=== PATIENT | male | born 1975 | race Caucasian/White ===

== ENCOUNTER 2020-09-21 07:21 | Emergency (ER) | payer OTHER, SELFPAY ==
--- NOTE | ~2020-09-21 | XR_ITS ---
EXAMINATION: XR chest 1V 09/21/2020 08:41 INDICATION: Syncope. Chest pain after fall. PROCEDURE: 2 view chest COMPARISON: 03/29/2018 FINDINGS: The lungs are clear. The cardiomediastinal silhouette is within normal limits. There are no pleural effusions. There is no pneumothorax suspected. IMPRESSION: 1: NO ACUTE CARDIOPULMONARY DISEASE. Reviewed, dictated and finalized at location A.
--- NOTE | ~2020-09-21 | XR_ITS ---
XR hip BI 2V w AP pelvis 09/21/2020 08:41 INDICATION: Pelvic and hip pain after fall PROCEDURE: AP pelvis and 2 views each hip COMPARISON: No prior studies for comparison. FINDINGS: Fracture, dislocation or subluxation is not identified. Pelvic rings are intact. Sacral for amen are symmetric. The soft tissues appear within normal limits. No foreign bodies are identified. IMPRESSION: 1: NO ACUTE BONE OR JOINT ABNORMALITY IDENTIFIED. Reviewed, dictated and finalized at location A.
[2020-09-21 07:31] VITALS: BP 174/91; PULSE 93; RESP 18; TEMP 36.6; O2SAT 97
--- NOTE | 2020-09-21 07:46 | ECG_ITS ---
Measurements Intervals [place] Rate: 86 P: 151 WI: 160 QRS: 16 QRSD: 108 T: 23 QT: 351 QTc: 420 Interpretive Statements SINUS RHYTHM CONSIDER INFERIOR INFARCT, AGE INDETERMINATE ABNORMAL ECG Electronically Signed On 09-21-2020 7:58:20 CDT by Geovanni Mullins D.O.
--- NOTE | 2020-09-21 08:00 | ED.GENADULT ---
HPI - General Adult General Chief complaint: Extremity Injury, Lower Stated complaint: legs not working well after COVID shot Time Seen by Provider: 09/21/20 07:23 Source: RN notes reviewed History of Present Illness HPI narrative: Patient presents emergency department from home for cramping of his bilateral hamstrings. Patient states that yesterday he had been walking in his yard when all of a sudden his right hamstring had cramped up this caused him to have severe pain in the right hamstring and fall he states he did have a brief syncopal episode with this and was out for approximately 25 seconds states that since that time he said cramping in the bilateral hamstrings. Patient states he is able to fully extend the legs he does hurt to fully extend as well as walk he denies any numbness or tingling or weakness of the legs he denies any fevers or chills chest pain shortness of breath abdominal pain nausea vomiting diarrhea or any other symptoms he states he did get his Covid vaccine yesterday. He denies any back pain and denies any bowel or bladder incontinence Related Data Home Medications Medication Instructions Recorded Confirmed aspirin 81 mg PO DAILY 09/21/20 09/21/20 Allergies Allergy/AdvReac Type Severity Reaction Status Date / Time No Known Allergies Allergy Unverified 09/21/20 07:34 Review of Systems Review of Systems: Narrative: Gen.: Denies fevers or chills Eyes: Denies eye pain or visual change ENT: Denies congestion Respiratory: Denies shortness of breath or cough CV: Denies chest pain or palpitations GI: Denies abdominal pain nausea, emesis or diarrhea denies bowel or bladder incontinence Musculoskeletal: See HPI Neuro: Denies numbness, tingling, weakness or focal weakness Skin: Denies rash Except as documented, all other systems reviewed and negative [facility] Past Medical History Medical History (Updated 09/21/20 @ 11:56 by Kelechi Prather DO) Patient denies significant medical history Social History Social History (Updated 09/21/20 @ 11:53 by Kelechi Prather DO) Smoking status: Never smoker Gender identity (if verbalized by the patient): Male Exam Narrative: Exam Narrative: APPEARANCE: No acute distress, nontoxic, resting in bed EYES: EOMI HEENT: Normocephalic, atraumatic, OMM RESPIRATORY: No respiratory distress Clear to auscultation bilaterally with no rhonchi wheezing or rales. CARDIOVASCULAR: Regular rate and rhythm without murmurs rubs or gallops. ABDOMINAL: Soft, nontender, nondistended, no rebound or guarding MUSCULOSKELETAl: Moves all extremities. No clubbing, cyanosis or edema. Tender to palpation over the bilateral hamstrings pain increased with full extension at the knee in the bilateral hamstrings muscle strength is 5 out of 5 in the bilateral lower extremities bilateral dorsalis pedis pulse 2+ bilateral lower extremities neurovascularly intact no overlying erythema or signs of infection no rashes NEURO: Awake and alert. Following commands, speech normal, no focal deficits SKIN:: Warm, dry. 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 Discussed need for follow-up with primary care, proper use of medication, and reasons to return to the emergency department. Patient understands and agrees to current treatment plan Vital Signs Vital signs: Vital Signs Temperature 97.8 F 09/21/20 07:31 Pulse Rate 93 09/21/20 07:31 Respiratory Rate 18 09/21/20 07:31 Blood Pressure 174/91 H 09/21/20 07:31 Pulse Oximetry 97 09/21/20 07:31 Temperature 97.8 F 09/21/20 07:31 Pulse Rate 87 09/21/20 09:27 Respiratory Rate 18 09/21/20 09:27 Blood Pressure 162/89 H 03
--- NOTE | 2020-09-21 08:05 | PC.NURSE ---
Pt states he can't give a urine sample at this time
[2020-09-21 08:06] LABS: Basophils Percent Auto 0.2 % (0.2-1.2); Eosinophils Absolute Auto 0.1 K/mm3 (0-0.3); Eosinophils Percent Auto 0.8 % (0-4.4); Hematocrit 44.5 % (42.0-52.0); Hemoglobin 15.5 g/dL (14.0-18.0); Immature Granulocyte Absolute 0.04 K/mm3 (0.00-0.031); Immature Granulocyte Percent A 0.4 % (0-0.5); Lymphocytes Absolute Auto 1.66 K/mm3 (0.9-3.2); Mean Corpuscular HGB Conc 34.8 g/dl (32-36); Mean Corpuscular Hemoglobin 31.8 pg (26-34); Mean Corpuscular Volume 91.4 fl (80-100); Mean Platelet Volume 10.3 fl (7.4-10.4); Monocytes Absolute Auto 0.9 K/mm3 (0.1-0.6); Monocytes Percent Auto 8.6 % (2.6-8.5); Neutrophils Absolute Auto 7.7 K/mm3 (1.3-6.7); Platelet Count Result 264 k/mm3 (150-375); Red Blood Count 4.87 M/mm3 (4.6-6.20); Red Cell Distribution Width 11.8 % (11.5-14.5); White Blood Count 10.4 K/mm3 (4.5-10.0)
[2020-09-21] MEDS: diazePAM INJ (*CRX) 10 MG/2 ML SYRINGE 5 MG IV PUSH (08:13)
[2020-09-21] MEDS: SODIUM CHLORIDE 0.9% IV 1,000 ML 999 ML IV CONT (08:13)
[2020-09-21 08:15] LABS: INR 0.8
[2020-09-21 08:16] LABS: Partial Thromboplastin Time 28.4 SECONDS (22.3-36.8)
[2020-09-21 08:19] LABS: Alanine Aminotransferase 39 U/L (4-50); Alkaline Phosphatase 70 U/L (38-126); Anion Gap 4 mmol/L (8-16); Aspartate Amino Transferase 33 U/L (17-59); Bilirubin,Total 0.5 mg/dL (0.2-1.3); Blood Urea Nitrogen 12 mg/dL (9-20); Carbon Dioxide 29 mmol/L (22-30); Chloride 108 mmol/L (98-107); Creatine Kinase 503 U/L (55-170); Estimated CRCL calculation 142 ml/min; Estimated Glomerular Filt Rate > 60; Glucose 114 mg/dL (75-110); Magnesium 1.8 mg/dL (1.6-2.3); Potassium 4.3 mmol/L (3.4-5.0); Sodium 141 mmol/L (137-145)
[2020-09-21 08:31] LABS: Troponin I < 0.012 ng/mL (0.000-0.034)
--- NOTE | 2020-09-21 08:49 | PC.NURSE ---
pt attempting to give urine sample at this time
[2020-09-21 09:27] VITALS: BP 162/89; PULSE 87; RESP 18; O2SAT 97
[2020-09-21] MEDS: KETOROLAC 30 MG/ML VIAL (*BKC) IV PUSH (09:32)
[2020-09-21 10:23] LABS: Add Urine Microscopic? YES; Appearance Urine Cloudy (Clear); Bilirubin Urine Negative (Negative); Blood Urine Negative (Negative); Color Urine Yellow (Yellow); Glucose Urine UA Negative (Negative); Ketones Urine Negative (Negative); Leukocyte Esterase Ur Negative LEU/UL (Negative); Mucus Urine Moderate /lpf; Nitrate Urine Negative (Negative); Protein Urine Negative (Negative); RBC Urine 0-2 /hpf (0-2); Specific Grav Ur 1.019 (1.001-1.035); Squamous Epithelial Cell Urine Rare /hpf (Few); Urobilinogen Urine Negative mg/dL (<2.0); WBC Urine 0-3 /hpf
[2020-09-21 12:18] VITALS: BP 168/85; PULSE 85; RESP 18; O2SAT 98
== END 2020-09-21 12:19 | disposition home or self-care (01) ==
PROVIDERS: Emergency Provider Emergency Medicine
DX: S76.911A Strain of unspecified muscles, fascia and tendons at thigh level, right thigh, initial encounter (principal); R55 Syncope and collapse; R25.2 Cramp and spasm; X58.XXXA Exposure to other specified factors, initial encounter
CPT/HCPCS: 36415; 71045; 73521; 80053; 81001; 82550; 83735; 84484; 85025; 85610; 85730; 93005; 96361; 96374; 96375; 99284; J1885; J3360; J7030

== ENCOUNTER 2021-02-01 08:19 | Outpatient (CLI) | payer OTHER, SELFPAY ==
--- NOTE | ~2021-02-01 | US_ITS ---
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 COMPARISON: None available FINDINGS: Bowel gas obscures visualization of the pancreas. The visualized portions of the pancreas a re unremarkable. The liver is normal with normal echogenicity and echotexture. No surface nodularity. Normal hepatopetal flow in the main portal vein. The gallbladder is normal with no abnormal wall thi ckening, pericholecystic fluid or stones. The normal common bile duct measures 4 mm. There was no son ographic Gutiérrez sign. IMPRESSION: 1. Unremarkable right upper quadrant ultrasound. Reviewed, dictated and finalized at location A.
== END 2021-02-01 08:20 | disposition home or self-care (01) ==
DX: K75.81 Nonalcoholic steatohepatitis (NASH) (principal)
CPT/HCPCS: 76705

== ENCOUNTER 2025-01-31 15:27 | Emergency (ER) | payer OTHER, SELFPAY ==
--- NOTE | ~2025-01-31 | XR_ITS ---
EXAM: XR hand LT min 3V DATE: 01/31/2025 15:58 HISTORY: LACERATION INJURY TO LT THUMB . COMPARISON: None available. FINDINGS: Normal mineralization. Old ulnar styloid fracture. No acute fracture or dislocation. No ly tic or blastic lesion. Mild scattered degenerative changes. No erosion or periosteal change. Soft tis sues within normal limits. IMPRESSION: No acute osseous finding in the left hand. Reviewed, dictated and finalized at location K.
--- OUTSIDE RECORDS SUMMARY | 2025-01-31 15:29 | XMS_ITS | Encounter Summary ---
Author Organization [facility] Address [address] [place] [address] Care Team Providers Care Signing Agent Name Role Phone Miguel A Coleman MD Primary Care Provider Amadeo Cole MD Unavailable [phone] Encounter Details Date Type Department Care Team (Late st Contact Info) Description 06/28/2017 Abstract [facility] Conversion Md, Generic Conversion, Social History Tobacco Use Types Packs/Day Years Used Date Smoking Tobacco: Never Assessed Sex and Gender Information Value Date Recorded Sex Assigned at Not on file Legal Sex Male 7:27 PM CDT Gender Identity Not on file Sexual Orientation Not on file documented as of this encounter Plan of Treatment Not on file documented as of this encounter Visit Diagnoses Not on filedocumented in this encounter Care Teams Signing Agent Relationship Specialty Start Date End Date Miguel A Coleman MD [address] [place] [address] [place] [address] PCP - General FAMILY PRACTICE 05/31/17 11/26/18 Amadeo Cole MD [facility]. [address] [address] [place] Source Water Protection Specialist CARDIOVASCULAR DISEASE 07/02/17 documented as of this encounter
--- OUTSIDE RECORDS SUMMARY | 2025-01-31 15:29 | XMS_ITS | Continuity of Care Document ---
Author Organization [facility] Address [address] [facility] [address] [place] [id number] Insurance Providers Payer Plan Claims Address Claims Phone Policy Number Group Number Relation Employer Guarantor Name Guarantor Guarantor Address Guarantor Phone LORENZO DONALDSON I.A.M. MUKESH NATIO NAL I.A.M . BENE tel:[phone] [id number] LORENZO DONALDSON I.A.M. MUKESH NATFLORA NAL I.A.M . MUKESH tel:[phone] [id number] [employer]IG[employer] CIGNA [address], [facility] [address] tel:[phone] Problems Unknown Problems Results Test Result Date/Time Value / Unit Interp. Refere nce Range Lipid Panel[[id number]] Collected: 01/02/2025 03:31 PM Specimen Received: 01/02/2025 05:00 AM Source: [facility] Cholesterol, Total [[id number]] 01/03/2025 11:28 AM 101 mg/dL 100-199 mg/d L Triglycerides [[id number]] 01/03/2025 11:28 AM 51 mg/dL 0-149 mg/dL HDL Cholesterol [[id number]] 01/03/2025 11:28 AM 37 mg/dL L >39 mg/dL VLDL Cholesterol Te [[id number]] 01/03/2025 11:28 AM 12 mg/dL 5-40 mg/dL LDL Chol Calc ([facility]) [[id number]] 01/03/2025 11:28 AM 52 mg/dL 0-99 mg/dL Hemoglobin A1c[[id number]] Collected: 01/02/2025 03:31 PM Specimen Received: 01/02/2025 05:00 AM Source: [facility] Hemoglobin A1c [[id number]] 01/03/2025 11:27 AM 5.2 % 4.8-5.6 % . Prediabetes: 5.7 - 6.4 Tri betes: >6.4 Glycemic control for adults with diabetes: 7.0 Comp. Metabolic Panel (14)[3 ] Collected: 07/24/2024 05:15 PM Specimen Received: 07/24/2024 05:00 AM Source: [facility] Glucose [[id number]] 07/25/2024 06:31 AM 113 mg/dL H 70-99 mg/dL BUN [[id number]] 07/25/2024 06:31 AM 11 mg/dL 6-2 4 mg/dL Creatinine [[id number]] 07/25/2024 06:33 AM 0.83 mg/dL 0.76-1.27 mg/dL eGFR [[id number]] 07/25/2024 06:33 AM 109 mL/min/1.73 >59 mL/min/1.73 BUN/Creatinine Ratio [690521] 07/25/2024 06:33 AM 13 9-20 Sodium [[id number]] 07/25/2024 06:25 AM 140 mmol/L 134-144 mmol/L Potassium [[id number]] 07/25/2024 06:26 AM 4.2 mmol/L 3.5-5.2 mmol/L Chloride [659303] 07/25/2024 06:24 AM 106 mmol/L 96-106 mmol/L Carbon Dioxide, Total [953309] 07/25/2024 06:29 AM 23 mmol/L 20-29 mmol/L Calcium [[id number]] 07/25/2024 06:30 AM 9.1 mg/dL 8.7-10.2 mg/dL Protein, Total [176804] 07/25/2024 06:34 AM 6.6 g/dL 6.0-8.5 g/dL Albumin [[id number]] 07/25/2024 06:33 AM 4.1 g/dL 4.1-5.1 g/dL Globulin, Total [539873] 07/25/2024 06:34 AM 2.5 g/dL 1.5-4.5 g/dL Bilirubin, Total [[id number]] 07/25/2024 06:33 AM 0.6 mg/dL 0.0-1.2 mg/dL Alkaline Phosphatase [430637] 07/25/2024 06:33 AM 85 IU/L 44-121 IU/L AST (SGOT) [[id number]] 07/25/2024 06:44 AM 25 IU/L 0-40 IU/L ALT (SGPT) [550482] 07/25/2024 06:33 AM 48 IU/L H 0-44 IU/L Lipid Panel[[id number]] Collected: 07/24/2024 05:15 PM Specimen Received: 07/24/2024 05:00 AM Source: [facility] Cholesterol, Total [[id number]] 07/25/2024 06:57 AM 129 mg/dL 100-199 mg/d L Triglycerides [[id number]] 07/25/2024 06:46 AM 132 mg/dL 0-149 mg/dL HDL Cholesterol [[id number]] 07/25/2024 06:58 AM 27 mg/dL L >39 mg/dL VLDL Cholesterol Te [[id number]] 07/25/2024 06:58 AM 24 mg/dL 5-40 mg/dL LDL Chol Calc ([facility]) [[id number]] 07/25/2024 06:58 AM 78 mg/dL 0-99 mg/dL Hemoglobin A1c[[id number]] Collected: 07/24/2024 05:15 PM Specimen Received: 07/24/2024 05:00 AM Source: [facility] Hemoglobin A1c [[id number]] 07/25/2024 04:22 AM 5.9 % H 4.8-5.6 % . Prediabetes: 5.7 - 6.4 Tri betes: >6.4 Glycemic control for adults with diabetes: 7.0 Allergies, adverse reactions, alerts No known allergies and adverse reactions Medications No administered medications reported Vital Signs No vital signs reported Social History No smoking Hx information available
--- OUTSIDE RECORDS SUMMARY | 2025-01-31 15:29 | XMS_ITS | Clinical Summary ---
Author Organization [facility] Address [facility] [place] [address] Care Team Providers Care Ammonia Box Operator Name Role Phone Amadeo Cole MD Unavailable [phone] Allergies No known active allergies Medications omeprazole 20 MG capsule Take 1 capsule by mouth daily. 8 06/02/2017 Active aspirin EC 81 MG EC tablet Take 1 tablet (81 mg total) by mouth daily. 08/07/2017 Active Active Problems Problem Noted Date Diagnosed Date Essential hypertension Atrial fibrillation ([facility]/HCC HHS/HCC) Family History Medical History Relation Comments Heart Attack Maternal Grandmother Stent Cardiac Maternal Grandmother irregular hb Mother Aneurysm Paternal Grandfather atrial fib Paternal Grandfather Relation Status Comments Father Alive Maternal Grandfather Maternal Grandmother Mother Alive Paternal Grandfather Paternal Grandmother Sister 1 Alive Sister 2 Alive Sister 3 Alive Social History Tobacco Use Types Packs/Day Years Used Date Smoking Tobacco: Every Day Smokeless Tobacco: Former Chew Quit: 05/2017 Comments:3 cigarettes daily Alcohol Use Standard Drinks/Week Comments Yes 0 (1 standard drink = 0.6 oz pur e alcohol) scotch 2/week Sex and Gender Information Value Date Recorded Sex Assigned at Not on file Legal Sex Male 7:27 PM CDT Gender Identity Not on file Sexual Orientation Not on file Occupation Industry Job Start Date Job End Date Not on file Not on file Not on file Not on file Last Filed Vital Signs Vital Sign Reading Time Taken Comments Blood Pressure 142/102 04/23/2018 3:53 PM CDT Pulse 96 04/23/2018 3:53 PM CDT Temperature 36.7 C (98 F) 07/11/2017 11:37 AM CLINICAL IMMUNOLOGIST Respiratory Rate 16 07/11/2017 3:00 PM CLINICAL IMMUNOLOGIST Oxygen Saturation 97% 07/11/2017 3:00 PM CLINICAL IMMUNOLOGIST Inhaled Oxygen Concentration - - Weight 144.2 kg (318 lb) 04/23/2018 3:53 PM CDT Height 188 cm (6' 2) 04/23/2018 3:53 PM CDT Body Mass Index 40.83 04/23/2018 3:53 PM CDT Plan of Treatment Health Maintenance Due Date Last Done Comments Colorectal Cancer Screening Colonoscopy (10 Years) 1977 Annual Physical 01/17/1980 Hepatitis B Vaccines (1 of 3 - 19+ 3-dose series) 01/17/1996 Pneumococcal Vaccine: Pediat rics (0 to 5 Years) and At-Risk Patients (6 to 49 Years) (1 of 2 - PCV) 01/17/1996 DTaP, Tdap and Td Vaccines ( 2 - Td or Tdap) 07/30/2022 07/30/2012 COVID-19 Vaccine (2023-2 5 season) 2024 Hepatitis C Completed 10/06/2016 Meningococcal B Vaccine Aged Out No l onger eligible based on patient's age to complete this topic Meningococcal Vaccine Aged Out No ben araseli eligible based on patient's age to complete this topic RSV Immunizations Under 20 Months Aged Out No longer eligible based on patient's age to complete this topic Procedures Procedure Name Priority Date/Time Associated Diagnosis Comments HEPATITIS C ANTIBODY Routine 10/06/2016 8:25 AM CDT from Last 3 Months or Most Recently Relevant to Health Maintenance Results * HEPATITIS C ANTIBODY (10/06/2016 8:25 AM CDT) HEPATITIS C AB NON-REACTIVE TESTING PERFORMED AT [facility] [address] [place] [address] NR [facility] TO EPIC CONVERSION 10/06/2016 8:25 AM CDT 10/06/2016 8:25 AM CDT Narrative [facility] TO EPIC CONVERSION - 10/08/2016 5:24 PM CDT Result Communication: No patient communication needed at this time Jonh Lu MD LABORATORY Final Result [facility] TO EPIC CONVERSION from Last 3 Months or Most Recently Relevant to Health Maintenance Insurance [employer] CIG[employer] Care Teams Ammonia Box Operator Relationship Specialty Start Date End Date Amadeo Cole MD [facility]. [address] [place] [address] [place] [employer] CARDIOVASCULAR DISEASE 07/02/17
--- OUTSIDE RECORDS SUMMARY | 2025-01-31 15:29 | XMS_ITS | Encounter Summary ---
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 This section includes the names of all active insurance providers for the patient. Insurance Provider Type of Coverage Plan Name Start of Policy Coverage End of Policy Coverage Group Number Member ID Insurance Provider's Telephone Number Policy Walker's Name Patient's Relationship to Policy Walker [employer]ICE NATIO NAL I.A.M . BENE Jul 01, 2022 [id number] SAMY ALEXANDER PATIENT [employer] BEH[employer]IORAL HE[employer] MENTAL HEALTH NATIO NAL I.A.M . BENE Jul 01, 2022 [id number] MOLLSAMY LAMBERT NJAL PATIENT Selected Encounter This section includes the information on record at [place] for the Encounter. Date/Time Encounter Type Encounter Description Reason Pro vider Source Oct 21, 2024 08:40 AM OFFICE O/P EST LOW 20 MIN GASTROENTEROLOGY ICD-10-CM K21.9 Gastro-esophagea l reflux disease without esophagitis RUFINO TAN Alysia Encounter Template Text not used by [place] Assessments - Encounter Diagnoses This section includes the primary and secondary diagnoses documented for the Encounter. Date/Time Primary/Secondary Diagnosis Diagnosis Name Provider Source November 02, 2024 07:00 AM PRIMARY Gastro-esophageal reflux disease without esophagitis SINGH TAN [facility] November 02, 2024 07:00 AM SECONDARY Chest pain, unspecified SINGH TAN [facility] November 02, 2024 07:00 AM SECONDARY Fatty (change of) liver, not elsewhere classified SINGH TAN [facility] November 02, 2024 07:00 AM SECONDARY Personal history of adenomatous and serrated colon polyps SINGH TAN [facility] Plan of Treatment: Future Appointments (+ 6 months) and Future Tests (+/- 45 days) The Plan of Treatment section includes future care activities for the patient [facility] This section includes future appointments and future orders which are active, pending or scheduled. Future Appointments This section includes appointments that were scheduled to occur 6 months from the date of the Encounter, up to a maximum of 20 appointments. The data comes from all [facility]. Appointment Date/Time Appointment Type Appointme nt Facility Name October 29, 2024 09:30 AM AMBULATORY - MEDICINE [facility] November 17, 2024 11:00 AM AMBULATORY - MEDICINE [facility] Dec 04, 2024 07:30 AM AMBULATORY - NONE [facility] Dec 31, 2024 02:00 PM AMBULATORY - NONE [facility] Apr 14, 2025 03:00 PM AMBULATORY - MEDICINE [facility] Active, Pending, and Scheduled Orders This section includes a listing of several types of active, pending, and scheduled orders, including clinic medications orders, diagnostic test orders, procedure orders and consult orders; where the start date of the order is 45 days before the date of the Encounter or 45 days after the date of theEncounter. The data comes from all [facility]. Test Date/Time Test Type Test Details Facility Name Oct 16, 2024 11:54 AM Consult Order [facility] Cons Blunger Machine Operator's Choice [facility] Dec 04, 2024 12:00 AM Imaging - Magnetic Resonance Imaging (MRI) Order MRI SHOULDER RIGHT RIGHT [facility] Lab Results: +/- 30 days of the encounter This section includes the Chemistry and Hematology Lab Results on record with [place] for the patient. Radiology Reports and Pathology Reports are provided separately, in subsequent sections. Lab Results This section contains the Chemistry/Hematology Results that were resulted 30 days before or 30 daysafter the date of the Encounter. Date/Time Source Result Type Result - Unit Interpretation Reference Range Specimen Type Comment Oct 21, 2024 09:19 AM [facility] HGA1C BLOOD Specimen Type: BLOOD No comment entered. Ordering Provider: CONOR GATES Report Released Date/Time: Oct 15, 2024 02:41 PM Reporting Lab: [facility] [address] [facility] [address] Performing Lab: [address] [address] HGA1C 5.1 4.0-6.0 Oct 21, 2024 09:19 AM [facility] HIV COMBO FOURTH GENERATION (STL) SERUM Speci men Type: SERUM No comment entered. Ordering Provider: CONOR GATES Report Released Date/Time: Oct 15, 2024 04:23 PM Reporting Lab: [facility] [address] [facility] [address] Performing Lab: [facility] [address] [facility] [address] HIV COMBO FOURTH GENERATION (STL) Nonreactive Nonreactive Oct 21, 2024 09:19 AM [facility] HEP C Ab HCV Ab (STL) SERUM Specime n Type: SERUM No comment entered. Ordering Provider: CONOR GATES Report Released Date/Time: Oct 15, 2024 04:23 PM Reporting Lab: [facility] [address] [facility] [address] Performing Lab: [facility] [address] [facility] [address] HEP C Ab HCV Ab (STL) Nonreactive Nonrea ctive Oct 21, 2024 09:18 AM [facility] HEPATIC FUNTION PANEL (STL) PLASMA Specimen Ty pe: PLASMA No comment entered. Ordering Provider: SINGH TAN Report Released Date/Time: Oct 21, 2024 08:53 AM Reporting Lab: [facility] [address] [facility] [address] Performing Lab: [facility] [address] [facility] [address] PROTEIN 7.3 g/dL 6-8.6 ALBUMIN 4.3 g/dL 3.4-5 TOTAL BILIRUBIN 1.2 mg/dL 0.2-1.2 ALKALINE PHOSPHATASE 98 U/L 40-150 AST/SGOT 34 U/L 5-34 ALT/SGPT 36 U/L 8-40 CONJ. BILIRUBIN 0.5 mg/dL 0-0.5 Vital Signs: All taken on the encounter date This section contains inpatient and outpatient Vital Signs collected on the date of the Encounter. Date/Time Temperature Pulse Blood Pressure Respiratory Rate SP02 Pain Height Weight Body Mass Index Source Oct 21, 2024 08:25 AM 96.8 73 111/69 18 96 8 285.5 37 [facility] Radiology Reports: +/- 30 days of the encounter Radiology Reports For cases when an order for radiology services may have been completed prior to the date of the Encounter, the report list includes the Radiology Reports that were completed up to 30 days before dateof the Encounter. For cases when an order for radiology services may have been completed after the date of the Encounter, the report list also includes the Radiology Reports that were completed up to30 days after date of the Encounter. The data comes from all [place] treatment facilities. Date/Time Radiology Report Provider Source Oct 21, 2024 09:03 AM SHOULDER,RIGHT,2 O R MORE VIEWS: DONOVAN ALEXANDER [id number] -1975 M Exm Date: OCT 21, 2024@09:03 Req Phys: CONOR GATES Loc: [facility] 7 PCP (Req'g Loc) Img Loc: [facility] SUITE Service: [address] [address] (Case [id number] COMPLETE) SHOULDER,RIGHT,2 OR MORE VIEWS (RAD Detailed) CPT:18923 Proc Modifiers : RIGHT Reason for Study: acute right shoulder pain Clinical History: Report Status: Verified Date Reported: OCT 21, 2024 Date Verified: OCT 21, 2024 Metal Weather Stripper E-Sig:/ES/DARIUS SANCHEZ Report: EXAMINATION: SHOULDER,RIGHT,2 OR MORE VIEWS DATE: 10/21/2024 9:03 AM HISTORY: acute right shoulder pain . COMPARISON: None. VIEWS:3 FINDINGS:Fracture, subluxation or dislocation. Moderate acromioclavicular osteoarthritis. Minor downsloping of the acromion. No focal destructive process. Impression: Predisposition to rotator cuff injury and moderate acromioclavicular osteoarthritis but no fracture, subluxation, dislocation, focal destructive process or other specific source of symptoms. Primary Interpreting Staff: DARIUS SANCHEZ, RADIOLOGIST (Metal Weather Stripper) /DARIUS LYNN [facility] Oct 21, 2024 09:03 AM ELBOW,RIGHT,3+VIEW S: DONOVAN ALEXANDER [id number] -1975 M Exm Date: OCT 21, 2024@09:03 Req Phys: CONOR GATES Loc: -[facility] PACT 7 PCP (Req'g Loc) Img Loc: -[facility] RADIOLOGY SUITE Service: [address] [address] (Case [id number] COMPLETE) ELBOW,RIGHT,3+VIEWS (RAD Detailed) CPT:02145 Proc Modifiers : RIGHT Reason for Study: chronic elbow pain Clinical History: Report Status: Verified Date Reported: OCT 22, 2024 Date Verified: OCT 22, 2024 Metal Weather Stripper E-Sig:/ES/AUDIE JENNINGS Report: Case [id number]. ELBOW,RIGHT,3+VIEWS. Comparison: None Findings: There is no evidence of fracture or dislocation. No bone destruction is present. 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 Small elbow joint effusion is noted. Impression: No acute fracture or dislocation. Osteoarthritic changes with small elbow joint effusion. Primary Interpreting Staff: AUDIE JENNINGS MD (Metal Weather Stripper) /AUDIE SOLANO [facility] Oct 21, 2024 09:03 AM ELBOW,LEFT, 3+VIEW S: DONOVAN ALEXANDER [id number] -1975 M Exm Date: OCT 21, 2024@09:03 Req Phys: CONOR GATES [facility] ([facility]g Loc[facility] Loc: [facility] SUITE Service: Unknown [address] [address] (Case [id number] COMPLETE) ELBOW,LEFT, 3+VIEWS (RAD Detailed) CPT:20650 Proc Modifiers : LEFT Reason for Study: chronic elbow pain Clinical History: Report Status: Verified Date Reported: OCT 22, 2024 Date Verified: OCT 22, 2024 Metal Weather Stripper E-Sig:/ES/AUDIE JENNINGS Report: Case [id number]. ELBOW,LEFT, 3+VIEWS. Comparison: None Findings: There is no evidence of fracture or dislocation. No bone destruction is present. Osteoarthritic changes are noted with osteophyte formation between the capitellum and the trochlea. Small elbow joint effusion is noted. Impression: Mild osteoarthritic changes with small joint effusion. Primary Interpreting Staff: AUDIE JENNINGS MD (Metal Weather Stripper) /AUDIE SOLANO [facility] Oct 21, 2024 09:02 AM CHEST X-RAY, 2 VIE WS: BENJAMINDONOVAN BARBERI [id number] -1975 M Exm Date: OCT 21, 2024@09:02 Req Phys: SINGH TAN Loc: -[place] (Req'g Loc) [facility] Loc: [facility] RAD[facility] SUITE Service: Unknown [address] [address] (Case [id number] COMPLETE) CHEST X-RAY, 2 VIEWS (RAD Detailed) CPT:01286 Proc Modifiers : Insp / Exp Reason for Study: chest pain Clinical History: xiphoialgia Report Status: Verified Date Reported: OCT 21, 2024 Date Verified: OCT 21, 2024 Metal Weather Stripper E-Sig:/ES/DARIUS SANCHEZ Report: EXAMINATION: CHEST X-RAY, 2 VIEWS DATE: 10/21/2024 9:02 AM HISTORY: chest pain. COMPARISON: None. VIEWS: PA and lateral FINDINGS: Heart size is normal. Lungs are clear. No pleural effusion. Impression: No active disease. Primary Interpreting Staff: DARIUS SANCHEZ, RADIOLOGIST (Metal Weather Stripper) /DARIUS LYNN [facility] Encounter Notes: All associated encounter notes This section contains the clinical notes associated to the Encounter. Date/Time Encounter Note(s) Provider Source Oct 21, 2024 08:31 AM GASTROENTEROLOGY OUTPATIENT NOTE: LOCAL TITLE: GASTROENTEROLOGY OUTPATIENT FOLLOW UP [facility] STANDARD TITLE: GASTROENTEROLOGY OUTPATIENT NOTE DATE OF NOTE: OCT 21, 2024@08:31 ENTRY DATE: OCT 21, 2024@08:31:44 AUTHOR: SINGH TAN COSIGNER: URGENCY: STATUS: COMPLETED S: Mr. Limon is a 49 y/o male that presents for follow up regartding GERD, NAFLD and diarrhea. Workup summary per this provider: EGD 08/12/23 with Grade B esophagitis, gastritis (negative for metaplasia, dysplasia, or malignancy), erythematous duodenapathy, and no esophageal varices. EGD 04/28/19 showed evidence of LA grade B reflux,normal stomach, non-bleeding small <5mm esophageal varices, normal duodenum. Colon 2023: Impression: - One 3 mm polyp in the sigmoid colon, removed with a jumbo cold forceps. Resected and retrieved. - Diverticulosis in the sigmoid colon. - External and internal hemorrhoids. CPRS labs reveal mild continued hepatocellular dysfunction. US 10/08/16: fatty liver, patent vessels, no focal lesions. FIbroscan 08/24/19 CAP 321, LSM 3.8 kPa. US 02/01/21: normal-appearing liver, no ascites 04/22/2024 Fibrosis-4 Score 0.72 at prior office visit with GI he reported longstanding (decades) diarrhea described as three semiformed stools daily, at times explosive, no nocturnal stools. reports occassional rectal bleeding and defecatory anal pain (hemorrhoids noted on prior colonoscopy as below). he is compliant with 1 tbsp of metamucil daily which reduces urgency. per recent PCP visit: # Chronic diarrhea/hematochezia: - Resolved with modifying diet. ----- since ADELINE patient has engaged with a diet program through his private insurer focused on a ketogenic diet and has lost 65 lbs and reported no rectal bleeding for the past two months. his bowels are regular and he denies nocturnal stools. GERD sx are well controlled with pantoprazole daily. his only concern today is chest discomfort following a Primordialu match three weeks ago with acute onset of chest wall pain and palpable change noted along his right sternal border and ribs. he continues physical activity involving his upper torso. O: General: WDWN MALE (BMI:36.7) in no acute distress, AAO x 3 Vitals: 96.8 F [36.0 C] (10/21/2024 08:25) 73 (10/21/2024 08:25) 18 (10/21/2024 08:25) 111/69 (10/21/2024 08:25) 96% (10/21/2024 08:25) 285.5 lb [129.50 kg] (10/21/2024 08:25) HEENT: Moist MM, tongue appears normal Neck: Appears normal, no palpable masses CVS: RRR on auscultation, No pedal edema Respiratory: Breathing appears normal, Chest is clear to auscultate Abd: Soft, BS+, No abdominal tenderness, No hepatosplenomegaly Musculoskeletal: No clubbing, No cyanosis, normal range of motion. reports devation of right rib which is mobile but not exquisitely tender. Skin: w/o rash, bruise, petechiae or angioma DATA REVIEW: The medication list was reviewed with the patient, discrepancies were resolved, and the patient was offered an updated list. Refills ordered as needed. Labs: Catherine Class [ ]: HGB/MCV: HGB 15.9 g/dL 07/14/2024 09:20 / 92.8 fL (07/14/24 09:20) FE STUDIES: No IRON & TIBC EO data found / No FERRITIN EO data found CHEMISTRY: CREATININE 0.81 mg/dL 07/14/2024 09:20 / 15.2 mg/dL (07/14/24 09:20) / POTASSIUM 4.9 mEq/L 07/14/2024 09:20 / SODIUM 141 mEq/L 07/14/2024 09:20 COAG: No INR EO data found / ____ No HEP C Ab HCV Ab (STL);HEPATITIS C AB (PB);HEP C AB (MA);HCV AB PB(Effective 458951) data found No HEPATITIS C (10Y) EO data found IMAGING REVIEW: US- No Impressions found CT Abd- No Impressions found A&P: Mr. Limon is a 49 y/o male that presents for follow up regarding GERD, NAFLD and diarrhea. regarding GERD sx, he has h/o mild (grade B) esophagitis with no findings of bonilla's. since he has lost weight and has modified his diet, he can consider stopping his PPI and pulsing therapy as needed. dosing strategies were discussed. regarding NALFD, he agrees to repeat liver panel today as he has lost >10% of his total weight. regarding his mild chest wall pain, will obtain CXR to e/f displaced rib vs fracture, with appropriate follow up via PCP. his diarrhea has resolved along with his intermittent rectal bleeding. he is due for surveillance colonoscopy in 2028, will adjust clinical reminder. Follow Up Colonoscopy - L,N,P,PH: Colonoscopy is due based on information available to this reminder. Prior/outside Colonoscopy results: Date: August 12, 2023 Colonoscopy reminder set 4 years from OCT 21, 2024. /stacy/ Singh Tan PA-C Physician Manager [facility] Signed: 10/21/2024 09:20 Receipt Acknowledged By: 10/21/2024 09:27 /stacy/ CONOR GATES, АНДРЕЙ, AGNP-C NURSE PRACTITIONER SINGH TAN [facility]
--- OUTSIDE RECORDS SUMMARY | 2025-01-31 15:29 | XMS_ITS | Encounter Summary ---
Author Name [facility] [place] [facility] [place] Address [address] [place] [address] Care Team Providers Care Planner Chief Name Role Phone CONOR GATES Primary Care [...] NAL I.A.M . BENE Jul 01, 2022 [id number] [phone] SAMY OLIVIER ANTAL PATIENT [facility] NATIO NAL I.A.M . BENE Jul 01, 2022 [id number] [phone] SAMY OLIVIER PATIENT Selected Encounter This section includes the information on record at [place] for the Encounter. Date/Time Encounter Type Encounter Description Reason Provider Source Jul 08, 2024 02:30 PM OFFICE O/P EST MOD 30 MIN PRIMARY CARE/MEDICINE ICD-10-CM I10 Essential (primary) hypertension AZUL GATES OR Mary Alice CONTI Encounter Template Text not used by [facility] Assessments - Encounter Diagnoses This section includes the primary and secondary diagnoses documented for the Encounter. Date/Time Primary/Secondary Diagnosis Diagnosis Name Provider Source Jul 16, 2024 09:23 AM PRIMARY Essential (primary) hypertension OLY SERNA [place] [facility] Jul 16, 2024 09:23 AM SECONDARY Alcoholic fatty liver OLY SERNA [place] [facility] Jul 16, 2024 09:23 AM SECONDARY Diarrhea, unspecified OLY SERNA [facility] Jul 16, 2024 09:23 AM SECONDARY Encounter for immunization OLY SERNA [place] [facility] Jul 16, 2024 09:23 AM SECONDARY Gastro-esophageal reflux disease without esophagitis OLY SERNA [place] [facility] Jul 16, 2024 09:23 AM SECONDARY Hyperlipidemia, unspecified OLY SERNA [place] [facility] Jul 16, 2024 09:23 AM SECONDARY Obstructive sleep apnea (adult) (pediatric) OLY SERNA [place] [facility] Jul 16, 2024 09:23 AM SECONDARY Other problems related to lifestyle OLY SERNA [facility] Jul 16, 2024 09:23 AM SECONDARY Pain in unspecified foot OLY SERNA [facility] Jul 16, 2024 09:23 AM SECONDARY Tobacco use OLY SERNA [facility] Plan of Treatment: Future Appointments (+ 6 months) and Future Tests (+/- 45 days) The Plan of Treatment section includes future care activities for the patient from all [place] treatmentfacilities. This section includes future appointments and future orders which are active, pending or scheduled. Future Appointments This section includes appointments that were scheduled to occur 6 months from the date of the Encounter, up to a maximum of 20 appointments. The data comes from all [place] treatment facilities. Appointment Date/Time Appointment Type Appointme nt Facility Name Jul 17, 2024 09:00 AM AMBULATORY - NONE [facility] Oct 21, 2024 08:40 AM AMBULATORY - MEDICINE [facility] Oct 21, 2024 02:00 PM AMBULATORY [facility] NONE [facility] Jan 04, 2025 03:00 PM AMBULATORY - MEDICINE [facility] Lab Results: +/- 30 days of the encounter This section includes the Chemistry and Hematology Lab Results on record with [place] for the patient. Radiology Reports and Pathology Reports are provided separately, in subsequent sections. Lab Results This section contains the Chemistry/Hematology Results that were resulted 30 days before or 30 daysafter the date of the Encounter. Date/Time Source Result Type Result - Unit Interpretation Reference Range Specimen Type Comment Jul 23, 2024 08:40 AM [facility] LIPID PANEL (STL) PLASMA Specimen Type: PLASMA No comment entered. Ordering Provider: CONOR GATES Report Released Date/Time: Jul 15, 2024 04:34 PM Reporting Lab: [facility] [address] [facility] [phone] Performing Lab: [address] [address] CHOLESTEROL 136 mg/dL 0-200 TRIGLYCERIDE 210 mg/dL H 0-150 CALCULATED LDL 68 mg/dL HDL(New) 26 mg/dL L >40 Jul 23, 2024 08:40 AM [facility] HEPATIC FUNTION PANEL (STL) PLASMA S pecimen Type: PLASMA No comment entered. Ordering Provider: CONOR GATES Report Released Date/Time: Jul 15, 2024 04:34 PM Reporting Lab: [facility] [address] [facility] [phone] Performing Lab: [facility] [address] [place] [phone] PROTEIN 7.2 g/dL 6-8.6 ALBUMIN 4.0 g/dL 3.4-5 TOTAL BILIRUBIN 0.5 mg/dL 0.2-1.2 ALKALINE PHOSPHATASE 80 U/L 40-150 AST/SGOT 35 U/L H 5-34 ALT/SGPT 58 U/L H 8-40 CONJ. BILIRUBIN 0.2 mg/dL 0-0.5 Jul 14, 2024 09:20 AM [facility] COMPREHENSIVE METABOLIC PANEL PLASMA Specimen Type: PLASMA Comment: LDL calculation invalid when Triglyceride exceeds 250 mg/dl Ordering Provider: CONOR GATES Report Released Date/Time: Jul 08, 2024 02:33 PM Reporting Lab: [facility] [address] [facility] [address] Performing Lab: [facility] [address] [place] [phone] CREATININE 0.81 mg/dL 0.7-1.3 UREA NITROGEN 15.2 mg/dL 9.0-25.0 GLUCOSE 120 mg/dL H 72-99 SODIUM 141 meq/L 136-145 POTASSIUM 4.9 meq/L 3.5-5 CHLORIDE 109 meq/L H 98-107 CARBON DIOXIDE 23 meq/L 22-31 CALCIUM 9.5 mg/dL 8.4-10.4 PROTEIN 7.6 g/dL 6-8.6 ALBUMIN 4.1 g/dL 3.4-5 TOTAL BILIRUBIN 0.4 mg/dL 0.2-1.2 ALKALINE PHOSPHATASE 90 U/L 40-150 AST/SGOT 35 U/L H 5-34 ALT/SGPT 62 U/L H 8-40 EGFR (CKD-EPI 2020) 109.4 >60 Jul 14, 2024 09:20 AM [facility] CBC BLOOD Specimen Type: BLOOD No comment entered. Ordering Provider: CONOR GATES Report Released Date/Time: Jul 08, 2024 02:33 PM Reporting Lab: [facility] [address] [facility] [address] Performing Lab: [facility] [address] [facility] [phone] WBC 9.5 10*3/uL 3.6-11.2 RBC 4.97 10*6/uL 4.10-5.70 HGB 15.9 g/dL 13.1-16.8 HCT 46.1 38.2-48.4 MCV 92.8 fL 80.0-100.0 MCH 32.0 pg 27.0-34.0 MCHC 34.5 g/dL 33.0-36.0 PLT 291 10*3/uL 150-400 MPV 11.1 fL 7.5-11.2 RDW 11.9 11.8-15.1 LYMPHOCYTES, AUTO % 23 MONOCYTES, AUTO % 9 NEUTROPHILS, AUTO % 66 EOSINOPHILS, AUTO % 1 BASOPHILS, AUTO % 0 LYMPHOCYTES, ABSOLUTE 2.18 10*3/uL 0.77- 4.50 MONOCYTES, ABSOLUTE 0.86 10*3/uL H 0.19-0. 80 NEUTROPHILS, ABSOLUTE 6.27 10*3/uL 2.10- 8.00 EOSINOPHILS, ABSOLUTE 0.13 10*3/uL 0.00- 0.60 BASOPHILS, ABSOLUTE 0.03 10*3/uL 0.00-0. 20 Jul 14, 2024 09:20 AM [facility] LIPID PANEL (STL) PLASMA Specimen Ty pe: PLASMA Comment: LDL calculation invalid when Triglyceride exceeds 250 mg/dl Ordering Provider: CONOR GATES Report Released Date/Time: Jul 08, 2024 02:33 PM Reporting Lab: [address] [address] Performing Lab: [address] [address] CHOLESTEROL 146 mg/dL 0-200 TRIGLYCERIDE 279 mg/dL H 0-150 DIRECT LDL 82 mg/dL L >100 CALCULATED LDL comment mg/dL HDL(New) 25 mg/dL L >40 Jul 14, 2024 09:20 AM [facility] HGA1C BLOOD Specimen Type: BLOOD No comment entered. Ordering Provider: CONOR GATES Report Released Date/Time: Jul 08, 2024 02:33 PM Reporting Lab: [facility] [address] [place] [phone] Performing Lab: [address] [address] HGA1C 5.9 4.0-6.0 Jul 14, 2024 09:20 AM [facility] TSH W/ REFLEX FT4 (STL) PLASMA Speci men Type: PLASMA No comment entered. Ordering Provider: CONOR GATES Report Released Date/Time: Jul 08, 2024 02:33 PM Reporting Lab: [facility] [address] [place] [phone] Performing Lab: [address] [address] TSH 1.218 u[IU]/mL 0.47-5 Vital Signs: All taken on the encounter date This section contains inpatient and outpatient Vital Signs collected on the date of the Encounter. Date/Time Temperature Pulse Blood Pressure Respiratory Rate SP02 Pain Height Weight Body Mass Index Source Jul 08, 2024 02:13 PM 97.9 87 129/82 20 94 5 348 45 [facility] Immunizations: All administered on the encounter date This section contains immunizations associated to the Encounter. Immunization Series Date Issued Administered By Site Reaction Lot Number CVX Code Drug Optometric Tech Comment(s) Source COVID-19 (PFIZER), MRNA, LNP-S, PF, PIPPA-SUCROSE, 30 MCG/0.3 ML (AGES 12+ YEARS) Jul 08, 2024 LISA SERNA RIGHT DELTO ID [id number] [employer] INC ADMINISTERE D AT [facility] INFLUENZA, SPLIT VIRUS, TRIVALENT, PF Jul 08, 2024 LISA SERNA R LEFT DELTO ID [id number] [employer]LA[employer] TechnologiesITHKLI NE ADMINISTERE D AT [facility] PNEUMOCOCCAL POLYSACCHARID E PPV23 Jul 08, 2024 LISA SERNA LEFT DELTO ID [id number] 33 [employer] ADMINISTERE D AT [facility] Social History: Smoking Status (Most current) and Tobacco Use (All prior to encounter date) This section includes the most current, and the historical, smoking and tobacco- related health factors from the [place] facility where the Encounter took place. Current Smoking Status This section includes the most current smoking, or tobacco-related health factor, from the [place] facility where the Encounter took place. Date/Time Current Smoking Status Comment Facil ity Oct 17, 2023 01:30 PM VA-TOBACCO NEVER USED [facility] Tobacco Use History This section includes a history of the smoking, or tobacco-related health factors, that were collected on or before the date of the Encounter. The data comes from the [place] facility where the Encounter took place. Date/Time Smoking Status/Tobacco Use Comment F acility Oct 18, 2022 01:00 PM VA-TOBACCO USE > 1 5 LESS THAN 30 YEARS [facility] Oct 18, 2022 01:00 PM VA-TOBACCO USE ADVICE [facility] Oct 18, 2022 01:00 PM VA-TOBACCO USE PARACHUTE OFFICER NO [facility] Oct 18, 2022 01:00 PM VA-TOBACCO USE MED NOTIFY PROVIDER CONOR NARVAEZ [facility] Oct 18, 2022 01:00 PM VA-TOBACCO USE WI 30 MIN OF WAKEUP [facility] Oct 18, 2022 01:00 PM VA-TOBACCO USER EVERY DAY [facility] Pathology Reports: +/- 30 days of the encounter Pathology Reports For cases when an order for pathology services may have been completed prior to the date of the Encounter, the report list includes the Pathology Reports that were completed up to 30 days before dateof the Encounter. For cases when an order for pathology services may have been completed after the date of the Encounter, the report list also includes the Pathology Reports that were completed up to30 days after date of the Encounter. The data comes from all [facility] facilities. Date/Time Pathology Report Provider Source Jul 14, 2024 09:20 AM LR MICROBIOLOGY RE PORT: Accession [UID]: [id number] [[id number]] Received: Jul 14, 2024@16:44 Collection sample: STOOL Collection date: Jul 14, 2024 09:20 Site/Specimen: FECES Provider: CONOR GATES Test(s) ordered: C&S STOOL..................... completed: Jul 17, 2024 13:49 * BACTERIOLOGY FINAL REPORT => Jul 18, 2024 07:30 [facility] CODE: [id number] Bacteriology Remark(s): 07/15/24 CMG CULTURE SHOWS HEAVY GROWTH OF USUAL ENTERIC PENNY. 07/17/24 RS NO Aeromonas, Campylobacter, E.coli 0157, Plesiomonas, Salmonella, Shigella, or Yersinia isolated. CULTURE GREW USUAL ENTERIC PENNY- NO ENTERIC PATHOGENS ISOLATED. CULTURE COMPLETE. =--=--=--=--=--=--=--=--=--=--=-- =--=--=--=--=--=--=--=--=--=--=-- =--=--=--=-- Performing Laboratory: Bacteriology Report [facility] CLIA# [id number] [address] [facility] [address] [place] [address] EVELIA SEBASTIAN [facility] Encounter Notes: All associated encounter notes This section contains the clinical notes associated to the Encounter. Date/Time Encounter Note(s) Provider Source Jul 24, 2024 07:57 AM PHYSICIAN LETTERS: LOCAL TITLE: TEST RESULT GENERAL LETTER STL STANDARD TITLE: PHYSICIAN LETTERS DATE OF NOTE: JUL 24, 2024@07:57 ENTRY DATE: JUL 24, 2024@07:57:50 AUTHOR: CONOR GATES EXP COSIGNER: URGENCY: STATUS: COMPLETED [facility] [address] [place] [address] JUL 24, 2024 MOHAN OLIVIER [address] [place], [place] [address] Dear Mohan Olivier, I would like to update you on your recent test results. LIPID PROFILE - High cholesterol and triglycerides (lipids) are risk factors for heart disease. Your cholesterol should fall between 140 and 200, and your triglycerides levels should be less than or equal to 150. HDL is the good cholesterol and should ideally be greater than 40. LDL is the bad cholesterol and optimal levels should be less than 100 (near optimal is between 100 and 129). TRIGLYCERIDE 210 H mg/dL 07/23/2024 08:40 CHOLESTEROL 136 mg/dL 07/23/2024 08:40 HDL(New) 26 L mg/dL 07/23/2024 08:40 DIRECT LDL 82 L mg/dL 07/14/2024 09:20 These results are abnormal. Triglyceride level slightly improved but remains above the normal limits. You can improve these values by changing your diet and exercise regimen. Please review the following recommendations: -Incorporate 30-minutes of exercise with walking 5 days per week. Increasing your physical activity can help with weight management and improve your cholesterol levels. -Carefully review nutrition labels. Decrease intake of saturated fats or trans-fats. Monitor your salt intake. -Reduce your intake of sugars such as cake or candy. Additional hidden sugars are found foods such as pastries, breads, and pasta. Monitor your intake of these items as well and try not to consume on a daily basis. -Increase your intake of fresh or frozen fruits and vegetables which is preferred over canned or processed items. Canned foods have high amounts of sugar and salt. -Low fat dairy products are encouraged. -Leaner meats such as chicken or fish can have less fat that beef or pork. LIVER FUNCTION PANEL - These are tests for liver function: PROTEIN 7.2 g/dL 07/23/2024 08:40 ALBUMIN 4.0 g/dL 07/23/2024 08:40 TOTAL BILIRUBIN 0.5 mg/dL 07/23/2024 08:40 ALKALINE PHOSPHATASE 80 U/L 07/23/2024 08:40 AST/SGOT 35 H U/L 07/23/2024 08:40 ALT/SGPT 58 H U/L 07/23/2024 08:40 The results are similar to previous values. Your liver function test is elevated. There are several factors that can contribute to this elevation. Tylenol use, alcohol intake, high fat diet, and some medications that are metabolized by your liver can increase this value. The recommendation is to avoid Tylenol and alcohol. We will continue monitoring these labs. Please continue follow up with your tax intern. PLAN Please continue your treatment as we discussed during your visit. If you have any questions please call your shoe parts caser. I look forward to seeing you at your next clinic appointment. Thank you for choosing the [facility] for your healthcare. FUTURE APPOINTMENTS: 10/21/2024 08:40 [facility]-GI WILBER 10/21/2024 14:00 [facility]-NOCO VVC PACT NUTR 01/04/2025 15:00 [facility] PACT 7 PCP Sincerely, CONOR GATES, MSN, AGNP-C NURSE PRACTITIONER MOHAN OLIVIER TAYLOR L [facility] Jul 17, 2024 03:31 PM PHYSICIAN LETTERS: LOCAL TITLE: TEST RESULT GENERAL LETTER STL STANDARD TITLE: PHYSICIAN LETTERS DATE OF NOTE: JUL 17, 2024@15:31 ENTRY DATE: JUL 17, 2024@15:31:52 AUTHOR: CONOR GATES EXP COSIGNER: URGENCY: STATUS: COMPLETED [facility] [address] [place] [address] JUL 17, 2024 MOHAN OLIVIER [address] [place], [place] [address] Dear Mohan Olivier, I would like to update you on your recent test results. OTHER TEST RESULTS Test(s) ordered: C&S STOOL..................... completed: Jul 17, 2024 13:49 NO Aeromonas, Campylobacter, E.coli 0157, Plesiomonas, Salmonella, Shigella, or Yersinia isolated. CULTURE GREW USUAL ENTERIC PENNY- NO ENTERIC PATHOGENS ISOLATED. CULTURE COMPLETE. Stool culture negative for infection. PLAN Please continue your treatment as we discussed during your visit. If you have any questions please call your shoe parts caser. I look forward to seeing you at your next clinic appointment. Thank you for choosing the [facility] for your healthcare. FUTURE APPOINTMENTS: 10/21/2024 08:40 [facility]O-GI SAYUK 10/21/2024 14:00 [facility] VVC PACT NUTR 01/04/2025 15:00 [facility] PACT 7 PCP Sincerely, CONOR GATES, MSN, AGNP-C NURSE PRACTITIONER MOHAN OLIVIER TAYLOR L [facility] Jul 15, 2024 04:33 PM PHYSICIAN LETTERS: LOCAL TITLE: TEST RESULT GENERAL LETTER STL STANDARD TITLE: PHYSICIAN LETTERS DATE OF NOTE: JUL 15, 2024@16:33 ENTRY DATE: JUL 14, 2024@18:47:56 AUTHOR: CONOR GATES EXP COSIGNER: URGENCY: STATUS: COMPLETED [facility] [address] [place] [address] JUL 14, 2024 MOHAN OLIVIER [address] [place], [place] [address] Dear Mohan Olivier, I would like to update you on your recent test results. LIPID PROFILE - High cholesterol and triglycerides (lipids) are risk factors for heart disease. Your cholesterol should fall between 140 and 200, and your triglycerides levels should be less than or equal to 150. HDL is the good cholesterol and should ideally be greater than 40. LDL is the bad cholesterol and optimal levels should be less than 100 (near optimal is between 100 and 129). TRIGLYCERIDE 279 H mg/dL 07/14/2024 09:20 CHOLESTEROL 146 mg/dL 07/14/2024 09:20 HDL(New) 25 L mg/dL 07/14/2024 09:20 DIRECT LDL 82 L mg/dL 07/14/2024 09:20 These results are abnormal. Your triglyceride level is elevated. This is likely because you were not fasting. We ask that you repeat this testing fasting. You can improve these values by changing your diet and exercise regimen. Please review the following recommendations: -Incorporate 30-minutes of exercise with walking 5 days per week. Increasing your physical activity can help with weight management and improve your cholesterol levels. -Carefully review nutrition labels. Decrease intake of saturated fats or trans-fats. Monitor your salt intake. -Reduce your intake of sugars such as cake or candy. Additional hidden sugars are found foods such as pastries, breads, and pasta. Monitor your intake of these items as well and try not to consume on a daily basis. -Increase your intake of fresh or frozen fruits and vegetables which is preferred over canned or processed items. Canned foods have high amounts of sugar and salt. -Low fat dairy products are encouraged. -Leaner meats such as chicken or fish can have less fat that beef or pork. -Smoking cessation is recommended as well. HEMOGLOBIN A1C - Gives us information about your diabetes (sugar or glucose) control over the past 3 months. Your target is to keep your A1C below 5.7%. HGA1C 5.9 % 07/14/2024 09:20 These results are abnormal. This level is in the prediabetic range. If the level becomes greater than 6.4 then it would warrant the diagnosis of diabetes mellitus type 2. You can improve this by making healthy diet choices and increasing your physical activity. Some recommendations are mentioned above. Additionally, there is a clinic baked and graphite inspector who you can self-schedule with for recommendations on healthy meal plan and diet modifications. CBC - A complete blood count (CBC) gives important information about the kinds and numbers of cells in the blood, especially red blood cells, white blood cells, and platelets. HGB 15.9 g/dL 07/14/2024 09:20 HEMATOCRIT 46.1 % (07/14/24 09:20) PLT 291 10*3/uL 07/14/2024 09:20 WHITE BLOOD COUNT 9.5 10*3/uL (07/14/24 09:20) These readings are within normal limits. CHEM 7 - This is important information about the current status of your kidneys, liver, and electrolyte and acid/base balance as well as of your blood sugar and blood proteins. SODIUM 141 mEq/L 07/14/2024 09:20 POTASSIUM 4.9 mEq/L 07/14/2024 09:20 CHLORIDE 109 H mEq/L 07/14/2024 09:20 UREA NITROGEN 15.2 mg/dL 07/14/2024 09:20 CREATININE 0.81 mg/dL 07/14/2024 09:20 CALCIUM 9.5 mg/dL 07/14/2024 09:20 CARBON DIOXIDE 23 mEq/L 07/14/2024 09:20 GLUCOSE 120 H mg/dL 07/14/2024 09:20 EGFR (CKD-EPI 2020) 109.4 07/14/2024 09:20 These readings are similar to your prior labs values and low clinical concern. LIVER FUNCTION PANEL - These are tests for liver function: PROTEIN 7.6 g/dL 07/14/2024 09:20 ALBUMIN 4.1 g/dL 07/14/2024 09:20 TOTAL BILIRUBIN 0.4 mg/dL 07/14/2024 09:20 ALKALINE PHOSPHATASE 90 U/L 07/14/2024 09:20 AST/SGOT 35 H U/L 07/14/2024 09:20 ALT/SGPT 62 H U/L 07/14/2024 09:20 These results are abnormal. Your liver function test is elevated. There are several factors that can contribute to this elevation. Tylenol use, alcohol intake, high fat diet and some medications that are metabolized by your liver can increase this value. The recommendation is to avoid Tylenol and alcohol. Please repeat this test with your labs next week. TSH - Thyroid-stimulating hormone (also known as TSH or thyrotropin) is a peptide hormone synthesized and secreted by thyrotrope cells in the anterior pituitary gland, which regulates the endocrine function of the thyroid gland. TSH TSH 1.218 uIU/mL 07/14/2024 09:20 These readings are within normal limits. PLAN I have reviewed your test results and we need to get additional testing done as follows: repeat labs in one week fasting. FUTURE APPOINTMENTS: 10/21/2024 08:40 LAZARO-GI WILBER 01/04/2025 15:00 LAZARO-CHRISTOPHER PACT 7 PCP Sincerely, CONOR GATES, MSN, ARAM NURSE PRACTITIONER MOHAN OLIVIER [facility] L [facility] Jul 09, 2024 02:01 PM ADDENDUM: LOCAL TITLE: Addendum STANDARD TITLE: ADDENDUM DATE OF NOTE: JUL 09, 2024@14:01:24 ENTRY DATE: JUL 09, 2024@14:01:24 AUTHOR: NANNETTE GALVAN EXP COSIGNER: URGENCY: STATUS: COMPLETED PT RETURNED TM7 PCP CALL /stacy/ NANNETTE GALVAN LOAN SPECIALIST Signed: 07/09/2024 14:02 Receipt Acknowledged By: 07/09/2024 15:00 /stacy/ CONOR GATES, MSN, ARAM NURSE PRACTITIONER --- Original Document --- 07/08/24 PRIMARY CARE PROVIDER ESTABLISHED VISIT STL: ESTABLISHED PATIENT [id number] REASON FOR VISIT/CHIEF COMPLAINT: follow up HPI: PMH, see problem list 49 y/o male who presents to the medical clinic for his scheduled follow up visit. The purpose of the visit today is to follow up on the veterans chronic medical conditions. Denies new concerns or complaints. Last PCP visit: 10/17/2023 HTN. Home readings: not monitoring. Denies c/o SOB, CP, CHAN, Blurred vision, peripheral edema. Reports complaints of persistent diarrhea multiple times a day. He was evaluated by the tax intern on last March. He was instructed to stop Metamucil and start Fibercon. He reports mild improvement in stool consistency but the frequency of diarrhea episodes has not changed. He modified his diet and is eating less fried/processed food. Reports complaints of bright red blood in stool at least once per week. Noted to have internal and external hemorrhoids on last colonoscopy. Follow-up due March 2026. WHAT IS YOUR GOAL FOR TODAY? F/U chronic medical conditions SOURCE(S) OF HISTORY: -Patient PAST MEDICAL HISTORY: 1) HTN - Hypertension ([facility] [id number]) 2) Tobacco User ([facility] [id number]) 3) Current drinker 4) Obstructive Sleep Apnea of Adult ([facility] [id number]) 5) Foot pain 6) Alcoholic fatty liver 7) GERD - Gastro-Esophageal Reflux Disease ([facility] [id number]) 8) Hyperlipidemia ([facility] [id number]) 9) Exposure to potentially hazardous substance SURGICAL HISTORY: - Bilateral foot surgery in the past, unknown type FAMILY MEDICAL HISTORY: DM: mother and father CAD/IHD: mother and father-HTN CA: none SOCIAL HISTORY: Nicotine: quit smoking 11/2023, smokes 1 cigar per day. Smoked 1 PPD x since 1996 Alcohol: consumes 1 drinks per week Illicit Drugs: none -Lives: with and kids Allergy: FIRE ANT VENOM Allergy list reviewed and remains current. MEDICATIONS: Active Outpatient Medications (including Supplies): Active Outpatient Medications Status 1) ATORVASTATIN CALCIUM 40MG TAB TAKE ONE-HALF TABLET BY MOUTH ACTIVE EVERY EVENING Indication: FOR HIGH CHOLESTEROL 2) CALCIUM POLYCARBOPHIL 625MG TAB TAKE TWO TABLETS BY MOUTH ACTIVE ONCE A DAY Indication: FOR FIBER SUPPLEMENTATION 3) IRBESARTAN 75MG TAB TAKE ONE TABLET BY MOUTH ONCE A DAY ACTIVE Indication: FOR HIGH BLOOD PRESSURE 4) NICOTINE 4MG GUM CHEW 1 PIECE OF GUM BY MOUTH EVERY 4 HOURS ACTIVE NEEDED CHEW GUM UNTIL TINGLING SENSATION, THEN PARK THE GUM BETWEEN CHEEK AND GUM AREA. REPEAT (RE-CHEW) WHEN TINGLING STOPS. Indication: FOR TOBACCO CESSATION 5) PANTOPRAZOLE NA 40MG EC TAB TAKE ONE TABLET BY MOUTH EVERY ACTIVE MORNING BEFORE A MEAL TAKE 30 MINUTES BEFORE MEAL(S) Indication: FOR GASTROESOPHAGEAL REFLUX DISEASE MEDICATION RECONCILIATION: completed REVIEW OF SYSTEMS: See HPI for further details of positive complaints. All 10 systems reviewed and otherwise negative. PHYSICAL EXAMINATION: VITALS (most recent, as listed in the electronic record): Temperature: 97.9 F [36.6 C] (07/08/2024 14:13) BP: 129/82 (07/08/2024 14:13) Pulse: 87 (07/08/2024 14:13) Resp: 20 (07/08/2024 14:13) PulsOx: 94% (07/08/2024 14:13) Pain: 5 (07/08/2024 14:13) Weight: Measurement DT WEIGHT LB(KG)[BMI] 07/08/2024 14:13 348(157.85)[45*] 04/22/2024 08:21 337.9(153.27)[43*] 10/23/2023 08:15 333.1(151.09)[43*] PHYSICAL EXAMINATION: General appearance: well-groomed, well-nourished, in no distress HEENT: sclera/conjunctiva clear, TMs pearly miles, nares patent no secretions or inflammation, oropharynx WNL Neck: supple, no lymphadenopathy or thyromegaly Cardiovascular: RRR, no murmur, no gallop Respiratory: CTA, no wheezes, crackles or rhonchi ABD/GI: normal contour, bs + in all quads, non-tender M/S: normal gait and posture Extremities: radial/PT pulses 2+, warm, well-perfused Psych: normal affect Neuro: Alert and oriented x 3 Skin: warm, dry, normal color and texture, skin intact DATA REVIEW: HGA1C 5.9 % 10/23/2023 09:11 HGA1C 5.6 % 10/19/2022 08:30 Lipid Panel: TRIGLYCERIDE 137 mg/dL 10/23/2023 09:11 CHOLESTEROL 127 mg/dL 10/23/2023 09:11 HDL(New) 25 L mg/dL 10/23/2023 09:11 DIRECT LDL 107 mg/dL 10/19/2022 08:30 CALCULATED LDL 75 mg/dL 10/23/2023 09:11 CMP: SODIUM 139 mEq/L 10/23/2023 09:11 POTASSIUM 4.3 mEq/L 10/23/2023 09:11 CHLORIDE 107 mEq/L 10/23/2023 09:11 UREA NITROGEN 11.7 mg/dL 10/23/2023 09:11 CREATININE 0.84 mg/dL 10/23/2023 09:11 CALCIUM 9.2 mg/dL 10/23/2023 09:11 PROTEIN 7.3 g/dL 10/23/2023 09:11 ALBUMIN 4.2 g/dL 10/23/2023 09:11 ALKALINE PHOSPHATASE 83 U/L 10/23/2023 09:11 ALT/SGPT 48 H U/L 10/23/2023 09:11 AST/SGOT 29 U/L 10/23/2023 09:11 TOTAL BILIRUBIN 0.8 mg/dL 10/23/2023 09:11 CARBON DIOXIDE 28 mEq/L 10/23/2023 09:11 GLUCOSE 111 H mg/dL 10/23/2023 09:11 EGFR (CKD-EPI 2020) 108.9 10/23/2023 09:11 CBC: WBC 8.9 10*3/uL 10/23/2023 09:11 RBC 5.03 10*6/uL 10/23/2023 09:11 HGB 15.9 g/dL 10/23/2023 09:11 HCT 45.8 % 10/23/2023 09:11 MCV 91.1 fL 10/23/2023 09:11 MCH 31.6 pg 10/23/2023 09:11 MCHC 34.7 g/dL 10/23/2023 09:11 RDW 11.9 % 10/23/2023 09:11 PLT 273 10*3/uL 10/23/2023 09:11 MPV 10.1 fL 10/23/2023 09:11 NEUTROPHILS, AUTO % 67 % 10/23/2023 09:11 LYMPHOCYTES, AUTO % 24 % 10/23/2023 09:11 MONOCYTES, AUTO % 7 % 10/23/2023 09:11 EOSINOPHILS, AUTO % 2 % 10/23/2023 09:11 BASOPHILS, AUTO % 0 % 10/23/2023 09:11 NEUTROPHILS, ABSOLUTE 5.93 10*3/uL 10/23/2023 09:11 LYMPHOCYTES, ABSOLUTE 2.08 10*3/uL 10/23/2023 09:11 MONOCYTES, ABSOLUTE 0.65 10*3/uL 10/23/2023 09:11 EOSINOPHILS, ABSOLUTE 0.15 10*3/uL 10/23/2023 09:11 BASOPHILS, ABSOLUTE 0.02 10*3/uL 10/23/2023 09:11 TSH: TSH 1.121 uIU/mL 10/23/2023 09:11 UA: URINE COLOR Light-Yellow 10/25/2022 11:51 APPEARANCE Clear 10/25/2022 11:51 U.PH 6.0 10/25/2022 11:51 U.BILIRUBIN Negative mg/dL 10/25/2022 11:51 U.NITRITE Negative mg/dL 10/25/2022 11:51 URINE RBC/HPF 1 /HPF 10/19/2022 08:30 URINE WBC/HPF 11 H /HPF 10/19/2022 08:30 SQUAMOUS EPITH. 2 /HPF 10/19/2022 08:30 MUCUS MANY /LPF 10/19/2022 08:30 Micral: CREATuF: 82.8 (10/23/23 09:11) M/CREAT: 8 (10/23/23 09:11) MICRAL: 6.5 (10/23/23 09:11) ASSESSMENT/PLAN: # HTN: - Blood pressure stable. Continue irbesartan 75mg - Trend renal function. Continue lifestyle modifications # HLD: - Controlled per last LDL value. Continue atorvastatin 20mg. Trend lipid panel # REINALDO: - Last sleep study 05/12/2023 very severe sleep apnea. Using CPAP device 7/7 nights per week - The patient has been advised that using CPAP regularly can decrease cardiac strain and help to control blood pressure. # Tobacco use: - Reports he stopped smoking cigarettes 6 months ago. Smokes 1 cigar/day. # Reports history of AFIB for 6 months >4 years ago: - Underwent cardioversion. Did not tolerate BB. No recent AFIB. His roll coating machine operator recommended ASA 81mg lifelong. # GERD: - Eval/management per GI clinic - EGD completed on 08/14/2023 demonstrated evidence of LA Grade B esophagitis. - Advised to continue pantoprazole as directed # NAFLD: - Eval/management per GI clinic - 02/01/21 US: normal-appearing liver, no ascites; Fibro scan last year did not show any evidence of advanced fibrosis. Trend LFT. Continue lifestyle modifications # Chronic pain in foot, bilateral: - Issued shoes insert and Shanae braces. Stable at this time # Obesity: - Discussed scheduling appt with [facility] or [address] [address]. phone numbers provided for scheduling. Discussed endo referral once he completes his pre-requisites are met. # Chronic diarrhea/hematochezia: - Will repeat CBC, CMP, TSH. Check stool culture. Will alert tax intern of the veterans complaints. He has upcoming appointment scheduled in September. May need a sooner office visit. HM: Colorectal cancer screening: Last completed: C-scope 08/14/2023, f/u 5 years Due: 03/2026 Prostate cancer screening: Last completed: defer due to age Lung cancer screening: Eligibility: defer due to age AAA Screening: Eligibility: defer due to age ADMINISTERED Immunization Series Date Facility Reaction Info COVID-19 (MODERNA), MRNA, LNP-S,* 3 10/08/2021 No Site COVID-19 (MODERNA), MRNA, LNP-S,* 2 10/21/2020 No Site COVID-19 (MODERNA), MRNA, LNP-S,* 1 09/20/2020 No Site COVID-19 (MODERNA), MRNA, LNP-S,* 1 04/17/2023 [facility]* INFLUENZA, SPLIT VIRUS, QUADRIVA* 04/17/2023 [facility]* INFLUENZA, UNSPECIFIED FORMULATI* [facility] TDAP B 10/17/2023 [facility]* REFUSED ======= Immunization Date Facility Info PNEUMOCOCCAL CONJUGATE, UNSPECIF* 10/17/2023 [facility]* <I> TDAP 10/17/2023 [facility]* <I> TDAP 10/18/2022 [facility]* <I> clinical reminders completed; educated on continuing to avoid salt, conc sweets; benefits of continued exercise, reg PCP visits, routine eyes exams Plan of care has been discussed with including expected therapeutic benefits and potential side effects of prescribed medications and treatments. Current medication list has been reconciled with and updated accordingly. Benton was instructed to keep all scheduled appointments and to contact senior sales operations manager for any additional problems. verbalizes understanding and is in agreement with the plan of care. RTC: 6m or sooner PRN PREVENTION & SCREENING: ALCOHOL: Clinical Reminder not due now or within a month BLOOD PRESSURE: Clinical Reminder not due now or within a month HEMOGLOBIN A1C: Clinical Reminder not due now or within a month Pneumococcal Conjugate Vaccine (PCV15/PCV20) - L,N,P,PH,U: See orders. /stacy/ CONOR GATES, MSN, NOBLEP-C NURSE PRACTITIONER Signed: 07/08/2024 14:59 07/09/2024 ADDENDUM STATUS: COMPLETED PC provider attempted to reach the by phone to discuss recommendations from GI. No answer. LVM for return call. /stacy/ CONOR GATES, MSN, NOBLEP-C NURSE PRACTITIONER Signed: 07/09/2024 11:23 [facility] Jul 08, 2024 02:26 PM PRIMARY CARE NOTE: LOCAL TITLE: PRIMARY CARE PROVIDER ESTABLISHED VISIT [facility] STANDARD TITLE: PRIMARY CARE NOTE DATE OF NOTE: JUL 08, 2024@14:26 ENTRY DATE: JUL 08, 2024@14:26:16 AUTHOR: CONOR GATES EXP COSIGNER: URGENCY: STATUS: COMPLETED PRIMARY CARE PROVIDER ESTABLISHED VISIT [facility] Has ADDENDA ESTABLISHED PATIENT [id number] REASON FOR VISIT/CHIEF COMPLAINT: follow up HPI: PMH, see problem list 49 y/o male who presents to the medical clinic for his scheduled follow up visit. The purpose of the visit today is to follow up on the veterans chronic medical conditions. Denies new concerns or complaints. Last PCP visit: 10/17/2023 HTN. Home readings: not monitoring. Denies c/o SOB, CP, CHAN, Blurred vision, peripheral edema. Reports complaints of persistent diarrhea multiple times a day. He was evaluated by the tax intern on last March. He was instructed to stop Metamucil and start Fibercon. He reports mild improvement in stool consistency but the frequency of diarrhea episodes has not changed. He modified his diet and is eating less fried/processed food. Reports complaints of bright red blood in stool at least once per week. Noted to have internal and external hemorrhoids on last colonoscopy. Follow-up due March 2026. WHAT IS YOUR GOAL FOR TODAY? F/U chronic medical conditions SOURCE(S) OF HISTORY: -Patient PAST MEDICAL HISTORY: 1) HTN - Hypertension ([facility] [id number]) 2) Tobacco User ([facility] [id number]) 3) Current drinker 4) Obstructive Sleep Apnea of Adult ([facility] [id number]) 5) Foot pain 6) Alcoholic fatty liver 7) GERD - Gastro-Esophageal Reflux Disease ([facility] [id number]) 8) Hyperlipidemia ([facility] [id number]) 9) Exposure to potentially hazardous substance SURGICAL HISTORY: - Bilateral foot surgery in the past, unknown type FAMILY MEDICAL HISTORY: DM: mother and father CAD/IHD: mother and father-HTN CA: none SOCIAL HISTORY: Nicotine: quit smoking 11/2023, smokes 1 cigar per day. Smoked 1 PPD x since 1996 Alcohol: consumes 1 drinks per week Illicit Drugs: none -Lives: with and kids Allergy: FIRE ANT VENOM Allergy list reviewed and remains current. MEDICATIONS: Active Outpatient Medications (including Supplies): Active Outpatient Medications Status 1) ATORVASTATIN CALCIUM 40MG TAB TAKE ONE-HALF TABLET BY MOUTH ACTIVE EVERY EVENING Indication: FOR HIGH CHOLESTEROL 2) CALCIUM POLYCARBOPHIL 625MG TAB TAKE TWO TABLETS BY MOUTH ACTIVE ONCE A DAY Indication: FOR FIBER SUPPLEMENTATION 3) IRBESARTAN 75MG TAB TAKE ONE TABLET BY MOUTH ONCE A DAY ACTIVE Indication: FOR HIGH BLOOD PRESSURE 4) NICOTINE 4MG GUM CHEW 1 PIECE OF GUM BY MOUTH EVERY 4 HOURS ACTIVE NEEDED CHEW GUM UNTIL TINGLING SENSATION, THEN PARK THE GUM BETWEEN CHEEK AND GUM AREA. REPEAT (RE-CHEW) WHEN TINGLING STOPS. Indication: FOR TOBACCO CESSATION 5) PANTOPRAZOLE NA 40MG EC TAB TAKE ONE TABLET BY MOUTH EVERY ACTIVE MORNING BEFORE A MEAL TAKE 30 MINUTES BEFORE MEAL(S) Indication: FOR GASTROESOPHAGEAL REFLUX DISEASE MEDICATION RECONCILIATION: completed REVIEW OF SYSTEMS: See HPI for further details of positive complaints. All 10 systems reviewed and otherwise negative. PHYSICAL EXAMINATION: VITALS (most recent, as listed in the electronic record): Temperature: 97.9 F [36.6 C] (07/08/2024 14:13) BP: 129/82 (07/08/2024 14:13) Pulse: 87 (07/08/2024 14:13) Resp: 20 (07/08/2024 14:13) PulsOx: 94% (07/08/2024 14:13) Pain: 5 (07/08/2024 14:13) Weight: Measurement DT WEIGHT LB(KG)[BMI] 07/08/2024 14:13 348(157.85)[45*] 04/22/2024 08:21 337.9(153.27)[43*] 10/23/2023 08:15 333.1(151.09)[43*] PHYSICAL EXAMINATION: General appearance: well-groomed, well-nourished, in no distress HEENT: sclera/conjunctiva clear, TMs pearly miles, nares patent no secretions or inflammation, oropharynx WNL Neck: supple, no lymphadenopathy or thyromegaly Cardiovascular: RRR, no murmur, no gallop Respiratory: CTA, no wheezes, crackles or rhonchi ABD/GI: normal contour, bs + in all quads, non-tender M/S: normal gait and posture Extremities: radial/PT pulses 2+, warm, well-perfused Psych: normal affect Neuro: Alert and oriented x 3 Skin: warm, dry, normal color and texture, skin intact DATA REVIEW: HGA1C 5.9 % 10/23/2023 09:11 HGA1C 5.6 % 10/19/2022 08:30 Lipid Panel: TRIGLYCERIDE 137 mg/dL 10/23/2023 09:11 CHOLESTEROL 127 mg/dL 10/23/2023 09:11 HDL(New) 25 L mg/dL 10/23/2023 09:11 DIRECT LDL 107 mg/dL 10/19/2022 08:30 CALCULATED LDL 75 mg/dL 10/23/2023 09:11 CMP: SODIUM 139 mEq/L 10/23/2023 09:11 POTASSIUM 4.3 mEq/L 10/23/2023 09:11 CHLORIDE 107 mEq/L 10/23/2023 09:11 UREA NITROGEN 11.7 mg/dL 10/23/2023 09:11 CREATININE 0.84 mg/dL 10/23/2023 09:11 CALCIUM 9.2 mg/dL 10/23/2023 09:11 PROTEIN 7.3 g/dL 10/23/2023 09:11 ALBUMIN 4.2 g/dL 10/23/2023 09:11 ALKALINE PHOSPHATASE 83 U/L 10/23/2023 09:11 ALT/SGPT 48 H U/L 10/23/2023 09:11 AST/SGOT 29 U/L 10/23/2023 09:11 TOTAL BILIRUBIN 0.8 mg/dL 10/23/2023 09:11 CARBON DIOXIDE 28 mEq/L 10/23/2023 09:11 GLUCOSE 111 H mg/dL 10/23/2023 09:11 EGFR (CKD-EPI 2020) 108.9 10/23/2023 09:11 CBC: WBC 8.9 10*3/uL 10/23/2023 09:11 RBC 5.03 10*6/uL 10/23/2023 09:11 HGB 15.9 g/dL 10/23/2023 09:11 HCT 45.8 % 10/23/2023 09:11 MCV 91.1 fL 10/23/2023 09:11 MCH 31.6 pg 10/23/2023 09:11 MCHC 34.7 g/dL 10/23/2023 09:11 RDW 11.9 % 10/23/2023 09:11 PLT 273 10*3/uL 10/23/2023 09:11 MPV 10.1 fL 10/23/2023 09:11 NEUTROPHILS, AUTO % 67 % 10/23/2023 09:11 LYMPHOCYTES, AUTO % 24 % 10/23/2023 09:11 MONOCYTES, AUTO % 7 % 10/23/2023 09:11 EOSINOPHILS, AUTO % 2 % 10/23/2023 09:11 BASOPHILS, AUTO % 0 % 10/23/2023 09:11 NEUTROPHILS, ABSOLUTE 5.93 10*3/uL 10/23/2023 09:11 LYMPHOCYTES, ABSOLUTE 2.08 10*3/uL 10/23/2023 09:11 MONOCYTES, ABSOLUTE 0.65 10*3/uL 10/23/2023 09:11 EOSINOPHILS, ABSOLUTE 0.15 10*3/uL 10/23/2023 09:11 BASOPHILS, ABSOLUTE 0.02 10*3/uL 10/23/2023 09:11 TSH: TSH 1.121 uIU/mL 10/23/2023 09:11 UA: URINE COLOR Light-Yellow 10/25/2022 11:51 APPEARANCE Clear 10/25/2022 11:51 U.PH 6.0 10/25/2022 11:51 U.BILIRUBIN Negative mg/dL 10/25/2022 11:51 U.NITRITE Negative mg/dL 10/25/2022 11:51 URINE RBC/HPF 1 /HPF 10/19/2022 08:30 URINE WBC/HPF 11 H /HPF 10/19/2022 08:30 SQUAMOUS EPITH. 2 /HPF 10/19/2022 08:30 MUCUS MANY /LPF 10/19/2022 08:30 Micral: CREATuF: 82.8 (10/23/23 09:11) M/CREAT: 8 (10/23/23 09:11) MICRAL: 6.5 (10/23/23 09:11) ASSESSMENT/PLAN: # HTN: - Blood pressure stable. Continue irbesartan 75mg - Trend renal function. Continue lifestyle modifications # HLD: - Controlled per last LDL value. Continue atorvastatin 20mg. Trend lipid panel # REINALDO: - Last sleep study 05/12/2023 very severe sleep apnea. Using CPAP device 7/7 nights per week - The patient has been advised that using CPAP regularly can decrease cardiac strain and help to control blood pressure. # Tobacco use: - Reports he stopped smoking cigarettes 6 months ago. Smokes 1 cigar/day. # Reports history of AFIB for 6 months >4 years ago: - Underwent cardioversion. Did not tolerate BB. No recent AFIB. His roll coating machine operator recommended ASA 81mg lifelong. # GERD: - Eval/management per GI clinic - EGD completed on 08/14/2023 demonstrated evidence of LA Grade B esophagitis. - Advised to continue pantoprazole as directed # NAFLD: - Eval/management per GI clinic - 02/01/21 US: normal-appearing liver, no ascites; Fibro scan last year did not show any evidence of advanced fibrosis. Trend LFT. Continue lifestyle modifications # Chronic pain in foot, bilateral: - Issued shoes insert and Shanae braces. Stable at this time # Obesity: - Discussed scheduling appt with [facility] or [facility] [address]. phone numbers provided for scheduling. Discussed endo referral once he completes his pre-requisites are met. # Chronic diarrhea/hematochezia: - Will repeat CBC, CMP, TSH. Check stool culture. Will alert tax intern of the veterans complaints. He has upcoming appointment scheduled in September. May need a sooner office visit. HM: Colorectal cancer screening: Last completed: C-scope 08/14/2023, f/u 5 years Due: 03/2026 Prostate cancer screening: Last completed: defer due to age Lung cancer screening: Eligibility: defer due to age AAA Screening: Eligibility: defer due to age ADMINISTERED Immunization Series Date Facility Reaction Info COVID-19 (MODERNA), MRNA, LNP-S,* 3 10/08/2021 No Site COVID-19 (MODERNA), MRNA, LNP-S,* 2 10/21/2020 No Site COVID-19 (MODERNA), MRNA, LNP-S,* 1 09/20/2020 No Site COVID-19 (MODERNA), MRNA, LNP-S,* 1 04/17/2023 [facility]* INFLUENZA, SPLIT VIRUS, QUADRIVA* 04/17/2023 [facility] INFLUENZA, UNSPECIFIED FORMULATI* [facility] TD[facility] B 10/17/2023 [facility]* REFUSED ======= Immunization Date Facility Info PNEUMOCOCCAL CONJUGATE, UNSPECIF* 10/17/2023 [facility]* <I> TDAP 10/17/2023 [facility]* <I> TDAP 10/18/2022 [facility]* <I> clinical reminders completed; educated on continuing to avoid salt, conc sweets; benefits of continued exercise, reg PCP visits, routine eyes exams Plan of care has been discussed with including expected therapeutic benefits and potential side effects of prescribed medications and treatments. Current medication list has been reconciled with and updated accordingly. was instructed to keep all scheduled appointments and to contact senior sales operations manager for any additional problems. Benton verbalizes understanding and is in agreement with the plan of care. RTC: 6m or sooner PRN PREVENTION & SCREENING: ALCOHOL: Clinical Reminder not due now or within a month BLOOD PRESSURE: Clinical Reminder not due now or within a month HEMOGLOBIN A1C: Clinical Reminder not due now or within a month Pneumococcal Conjugate Vaccine (PCV15/PCV20) - L,N,P,PH,U: See orders. /stacy/ CONOR GATES MSN, NOBLEP-C NURSE PRACTITIONER Signed: 07/08/2024 14:59 07/09/2024 ADDENDUM STATUS: COMPLETED PC provider attempted to reach the by phone to discuss recommendations from GI. No answer. LVM for return call. /stacy/ CONOR GATES, MSN, NOBLEP-C NURSE PRACTITIONER Signed: 07/09/2024 11:23 07/09/2024 ADDENDUM STATUS: COMPLETED PT RETURNED TM7 PCP CALL /stacy/ NANNETTE GALVAN LOAN SPECIALIST Signed: 07/09/2024 14:02 Receipt Acknowledged By: 07/09/2024 15:00 /stacy/ АНДРЕЙ PRINGLE, AGNP-C NURSE PRACTITIONER 07/09/2024 ADDENDUM STATUS: COMPLETED Returned call to the . He is already talked with the tax intern. No further needs at this time. /АНДРЕЙ Camacho, TRIPP-C NURSE PRACTITIONER Signed: 07/09/2024 15:02 07/15/2024 ADDENDUM STATUS: COMPLETED lab results review Contacted the patient to interpret the labs results and update the plan of care. Verified I.D. with full name and Date of . # Elevated liver function test: - Repeat labs in one week. AST/ALT values slightly higher than labs in 09/2024. Denies significant changes in diet. # Hypertriglyceridemia: - Repeat lipid panel fasting. Will make further recommendations based on repeat results. Continue lifestyle modifications. /stacy/ АНДРЕЙ PRINGLE, NOBLEP-C NURSE PRACTITIONER Signed: 07/15/2024 16:35 CONOR GATES [facility] Jul 08, 2024 02:16 PM NURSING NOTE: LOCAL TITLE: 5 PACT FACE TO FACE NOTE [facility] STANDARD TITLE: NURSING NOTE DATE OF NOTE: JUL 08, 2024@14:16 ENTRY DATE: JUL 08, 2024@14:16:55 AUTHOR: OLY SERNA COSIGNER: URGENCY: STATUS: COMPLETED V15 PACT FACE TO FACE NOTE [facility] Has ADDENDA Provider Visit: Patient Identifiers : Full Name Date of Reason for visit: Established Follow-Up Mode of Arrival: Ambulatory Allergy Review: FIRE ANT VENOM Allergy list reviewed and remains current. Recent Vital Signs: Temperature: 97.9 F [36.6 C] (07/08/2024 14:13) Pulse: 87 (07/08/2024 14:13) Respiration: 20 (07/08/2024 14:13) B/P: 129/82 (07/08/2024 14:13) Pain: 5 (07/08/2024 14:13) Wt: 348 lb [157.85 kg] (07/08/2024 14:13) Ht: 74 in [188.0 cm] (10/17/2023 13:24) BMI: 44.8 POX: 94% (07/08/2024 14:13) PERSONAL HEALTH INVENTORY Notes: No data available for PHI note titles PERSONAL HEALTH INVENTORY - MAP: No data available for PHI MAP What matters most to you in your life right now? Benton's Response: my kids Would you like to discuss any personal problem, family problem, alcohol use, drug use, or a mental or emotional illness? No My [facility] ([facility]), please select appointment type: Face to face: Yes- Done Contact provided Primary Care phone number and encouraged to call if any questions or concerns. Review that after hours nurse line [phone] and emergency room are available 21/01 for patient use. Contact verbalized good understanding. No notification required for this note. /stacy/ OLY SERNA Licensed Practical Nurse Signed: 07/08/2024 14:18 07/08/2024 ADDENDUM STATUS: COMPLETED COVID-19 Immunization - L,N,P,PH,U: Additional Information: CDC Interim Clinical Considerations for Use of COVID-19 Vaccines in [facility] COVID-19 Vaccine [employer] Pfizer Monovalent (Comirnaty) Administered: COVID-19 (PFIZER), MRNA, LNP-S, PF, PIPPA-SUCROSE, 30 MCG/0.3 ML (AGES 12+ YEARS) Date Administered: Jul 08, 2024 14:30 Optometric Tech: [employer] Lot: [id number] Exp Date: Sep 29, 2024 ND: [id number] Admin Route/Site: INTRAMUSCULAR/RIGHT DELTOID Dosage: 0.5mL Vaccine Information Statement(s): COVID-19 MRNA VACCINE (12+ YRS) VIS Apr 16, 2024 ([place]) Order By: Conor Gates Administered By: Oly Serna Vaccine administered without complications. Influenza Immunization - L,N,P,PH,U: Influenza, Trivalent, Preservative Free (Fluarix-Syringe) Administered: INFLUENZA, SPLIT VIRUS, TRIVALENT, PF Date Administered: Jul 08, 2024 14:30 Optometric Tech: [employer] Lot: [id number] Exp Date: Dec 28, 2024 NDC: [id number] Admin Route/Site: INTRAMUSCULAR/LEFT DELTOID Dosage: 0.5mL Vaccine Information Statement(s): INFLUENZA(FLU) VACC(INACTIVATED OR RECOMBINANT)VIS Feb 03, 2021 ([place]GIAN) Order By: Conor Gates Administered By: Oly Serna The Influenza Vaccine Information Statement (VIS) was reviewed with the patient/caregiver which lists the benefits and risks of the vaccine and the risks of not receiving the Influenza vaccine. The patient/caregiver denied any prior severe reaction to this vaccine or its components or a severe allergic reaction, such as anaphylaxis, to any vaccine or any injectable therapy. The patient/caregiver gave verbal consent to receive the vaccine. Pneumococcal PPSV23 (Pneumovax) - L,N,P,PH,U: Administered: PNEUMOCOCCAL POLYSACCHARIDE PPV23 Date Administered: Jul 08, 2024 14:30 Optometric Tech: [employer] Lot: [id number] Exp Date: Jul 24, 2025 NDC: [id number] Admin Route/Site: INTRAMUSCULAR/LEFT DELTOID Dosage: 0.5mL Vaccine Information Statement(s): PPSV23 VIS Apr 29, 2019 ([place]) Order By: Conor Gates Administered By: Oly Serna Vaccine Information Sheet (VIS) was given to the patient/caregiver, education regarding adverse reactions was discussed, as well as barriers to learning, if any, were acknowledged. /stacy/ OLY SERNA Licensed Practical Nurse Signed: 07/08/2024 15:03 [facility]NA [facility]
--- OUTSIDE RECORDS SUMMARY | 2025-01-31 15:29 | XMS_ITS | Encounter Summary ---
Author Name [facility] [place] [facility] [place] Organization [facility] [place] Address [address] [place] [address] Care Team Providers Care Yarn Comber Name Role Phone CONOR PINEDO Primary Care Provider Unavailab le Insurance Providers: [...] Walker's Name Patient's Relationship to Policy Walker EYEMED (WNR) [facility] [employer] Jul 01, 2024 [id number] [phone] SAMY ALEXANDER PATIENT Selected Encounter This section includes the information on record at [place] for the Encounter. Date/Time Encounter Type Encounter Description Reason Provider Source Oct 15, 2024 02:00 PM OFFICE O/P EST LOW 20 MIN PRIMARY CARE/MEDICINE ICD-10-CM I10 Essential (primary) hypertension AZUL PINEDO Encounter Template Text not used by [place] Assessments - Encounter Diagnoses This section includes the primary and secondary diagnoses documented for the Encounter. Date/Time Primary/Secondary Diagnosis Diagnosis Name Provider Source Oct 15, 2024 03:05 PM PRIMARY Essential (primary) hypertension SEJAL PINEDO [facility] Oct 15, 2024 03:05 PM SECONDARY Alcoholic fatty liver SEJAL PINEDO [facility] Oct 15, 2024 03:05 PM SECONDARY Gastro-esophageal reflux disease without esophagitis SEJAL PINEDO [facility] Oct 15, 2024 03:05 PM SECONDARY Hyperlipidemia, unspecified SEJAL PINEDO [facility] Oct 15, 2024 03:05 PM SECONDARY Obstructive sleep apnea (adult) (pediatric) SEJAL PINEDO [facility] Oct 15, 2024 03:05 PM SECONDARY Other problems related to lifestyle SEJAL PINEDO [facility] Oct 15, 2024 03:05 PM SECONDARY Pain in left elbow SEJAL PINEDO [facility] Oct 15, 2024 03:05 PM SECONDARY Pain in right elbow SEJAL PINEDO [facility] Oct 15, 2024 03:05 PM SECONDARY Pain in right shoulder SEJAL PINEDO [facility] Oct 15, 2024 03:05 PM SECONDARY Pain in unspecified foot SEJAL PINEDO [facility] Oct 15, 2024 03:05 PM SECONDARY Tobacco use [facility] Plan of Treatment: Future Appointments (+ 6 months) and Future Tests (+/- 45 days) The Plan of Treatment section includes future care activities for the patient from all [place] treatments[facility]. This section includes future appointments and future orders which are active, pending or scheduled. Future Appointments This section includes appointments that were scheduled to occur 6 months from the date of the Encounter, up to a maximum of 20 appointments. The data comes from all [place] treatment facilities. Appointment Date/Time Appointment Type Appointme nt Facility Name Oct 19, 2024 03:00 PM AMBULATORY - MEDICINE [facility] Oct 21, 2024 08:40 AM AMBULATORY - MEDICINE [facility] Oct 21, 2024 02:00 PM AMBULATORY - NONE [facility] October 29, 2024 09:30 AM AMBULATORY - MEDICINE [facility] November 17, 2024 11:00 AM AMBULATORY - MEDICINE [facility] Dec 04, 2024 07:30 AM AMBULATORY - NONE [facility] Dec 11, 2024 10:00 AM AMBULATORY - MEDICINE [facility] Dec 31, 2024 02:00 PM AMBULATORY - NONE [facility] Apr 14, 2025 03:00 PM [facility] Active, Pending, and Scheduled Orders This section includes a listing of several types of active, pending, and scheduled orders, including clinic medications orders, diagnostic test orders, procedure orders and consult orders; where the start date of the order is 45 days before the date of the Encounter or 45 days after the date of theEncounter. The data comes from all [place] treatment facilities. Test Date/Time Test Type Test Details Facility Name Oct 16, 2024 11:54 AM Consult Order [facility] Cons Supervisor [employer] [facility] Lab Results: +/- 30 days of the encounter This section includes the Chemistry and Hematology Lab Results on record with [place] for the patient. Radiology Reports and Pathology Reports are provided separately, in subsequent sections. Lab Results This section contains the Chemistry/Hematology Results that were resulted 30 days before or 30 daysafter the date of the Encounter. Date/Time Source Result Type Result - Unit Interpretation Reference Range Specimen Type Comment Oct 21, 2024 09:19 AM [facility] HGA1C BLOOD Specimen Type: BLOOD No comment entered. Ordering Provider: CONOR PINEDO Report Released Date/Time: Oct 15, 2024 02:41 PM Reporting Lab: [facility] [address] [address] Performing Lab: [facility] [address] [place] [id number] HGA1C 5.1 4.0-6.0 Oct 21, 2024 09:19 AM [facility] HIV COMBO FOURTH GENERATION (STL) SERUM Speci men Type: SERUM No comment entered. Ordering Provider: CONOR PINEDO Report Released Date/Time: Oct 15, 2024 04:23 PM Reporting Lab: [facility] [address] [facility] [address] Performing Lab: [address] [address] HIV COMBO FOURTH GENERATION (STL) Nonreactive Nonreactive Oct 21, 2024 09:19 AM [facility] HEP C Ab HCV Ab (STL) SERUM Specime n Type: SERUM No comment entered. Ordering Provider: CONOR PINEDO Report Released Date/Time: Oct 15, 2024 04:23 PM Reporting Lab: [facility] [address] [address] Performing Lab: [facility] [address] [address] HEP C Ab HCV Ab (L) Nonreactive Nonrea ctive Oct 21, 2024 09:18 AM [facility] HEPATIC FUNTION PANEL (STL) PLASMA Specimen Ty pe: PLASMA No comment entered. Ordering Provider: EVETTE PENALOZA Report Released Date/Time: Oct 21, 2024 08:53 AM Reporting Lab: [facility] [address] [facility] [address] Performing Lab: [place] [address] [facility] [address] PROTEIN 7.3 g/dL 6-8.6 ALBUMIN 4.3 g/dL [...] Height Weight Body Mass Index Source Oct 15, 2024 02:01 PM 98 73 118/72 18 73 4 300.2 39 [facility] Social History: Smoking Status (Most current) and Tobacco Use (All prior to encounter date) This section includes the most current, and the historical, smoking and tobacco- related health factors from the [place] facility where the Encounter took place. Current Smoking Status This section includes the most current smoking, or tobacco-related health factor, from the [place] facility where the Encounter took place. Date/Time Current Smoking Status Comment Mariana smith Oct 15, 2024 02:00 PM VA-TOBACCO USE FORMER CIGARETTES [facility] Tobacco Use History This section includes a history of the smoking, or tobacco-related health factors, that were collected on or before the date of the Encounter. The data comes from the [place] facility where the Encounter took place. Date/Time Smoking Status/Tobacco Use Comment F acility Oct 15, 2024 02:00 PM VA-TOBACCO USE FOR SUKUMAR CIGARETTES [facility] Oct 17, 2023 01:30 PM VA-TOBACCO NEVER USED [facility] Oct 18, 2022 01:00 PM VA-TOBACCO USE > 1 5 LESS THAN 30 YEARS [facility] Oct 18, 2022 01:00 PM VA-TOBACCO USE ADVICE [facility] Oct 18, 2022 01:00 PM VA-TOBACCO USE QUILL REAMER NO [facility] Oct 18, 2022 01:00 PM VA-TOBACCO USE MED NOTIFY PROVIDER CABLE REELER CONOR PINEDO [facility] Oct 18, 2022 01:00 PM VA-TOBACCO USE WI 30 MIN OF WAKEUP [facility] Oct 18, 2022 01:00 PM VA-TOBACCO USER EVERY DAY [facility] Radiology Reports: +/- 30 days of the [...] the Encounter. The data comes from all [place] treatment facilities. Date/Time Radiology Report Provider Source Oct 21, 2024 09:03 AM SHOULDER,RIGHT,2 O R MORE VIEWS: MOHAN ALEXANDER [id number] -1975 M Exm Date: OCT 21, 2024@09:03 Req Phys: CONOR PINEDO Loc: [facility] 7 PCP (Req'g Loc) Img Loc: [facility] SUITE Service: [address] [address] (Case [id number] COMPLETE) SHOULDER,RIGHT,2 OR MORE VIEWS (RAD Detailed) CPT:99578 Proc Modifiers : RIGHT Reason for Study: acute right shoulder pain Clinical History: Report Status: Verified Date Reported: OCT 21, 2024 Date Verified: OCT 21, 2024 Company Laundry Worker E-Sig:/ES/DARIUS SANCHEZ Report: EXAMINATION: SHOULDER,RIGHT,2 OR MORE [...] symptoms. Primary Interpreting Staff: DARIUS SANCHEZ, RADIOLOGIST (Company Laundry Worker) /DARIUS LYNN [facility] Oct 21, 2024 09:03 AM ELBOW,RIGHT,3+VIEW S: MOHAN ALEXANDER [id number] -1975 M Exm Date: OCT 21, 2024@09:03 Req Phys: CONOR PINEDO [facility] (Req'g Loc) Img Loc: -MAIN RADIOLOGY SUITE Service: [facility] [address] [place] [address] (Case [id number] COMPLETE) ELBOW,RIGHT,3+VIEWS (RAD Detailed) CPT:36850 Proc Modifiers : RIGHT Reason for Study: chronic elbow pain Clinical History: Report Status: Verified Date Reported: OCT 22, 2024 Date Verified: OCT 22, 2024 Company Laundry Worker E-Sig:/ES/AUDIE JENNINGS Report: Case [id number]. ELBOW,RIGHT,3+VIEWS. Comparison: None Findings: There is no evidence of fracture or dislocation. No bone destruction is present. 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 Small elbow joint effusion is noted. Impression: No acute fracture or dislocation. Osteoarthritic changes with small elbow joint effusion. Primary Interpreting Staff: AUDIE JENNINGS MD (Company Laundry Worker) /AUDIE SOLANO [facility] Oct 21, 2024 09:03 AM ELBOW,LEFT, 3+VIEW S: MOHAN ALEXANDER [id number] -1975 M Exm Date: OCT 21, 2024@09:03 Req Phys: CONOR PINEDO [facility] (Req'g Loc) [facility] Loc: [facility] SUITE Service: Unknown [address] [address] (Case [id number] COMPLETE) ELBOW,LEFT, 3+VIEWS (RAD Detailed) CPT:56003 Proc Modifiers : LEFT Reason for Study: chronic elbow pain Clinical History: Report Status: Verified Date Reported: OCT 22, 2024 Date Verified: OCT 22, 2024 Company Laundry Worker E-Sig:/ES/AUDIE JENNINGS Report: Case [id number]. ELBOW,LEFT, 3+VIEWS. Comparison: None Findings: There is no evidence of fracture or dislocation. No bone destruction is present. Osteoarthritic changes are noted with osteophyte formation between the capitellum and the trochlea. Small elbow joint effusion is noted. Impression: Mild osteoarthritic changes with small joint effusion. Primary Interpreting Staff: AUDIE JENNINGS MD (Company Laundry Worker) /AUDIE SOLANO [facility] Oct 21, 2024 09:02 AM CHEST X-RAY, 2 VIE WS: BENJAMINMOHAN MITA [id number] -1975 M Exm Date: OCT 21, 2024@09:02 Req Phys: EVETTE PENALOZA Loc: [facility] (Req'g Loc) [facility] Loc: [facility] SUITE Service: Unknown [address] [address] (Case [id number] COMPLETE) CHEST X-RAY, 2 VIEWS (RAD Detailed) CPT:97986 Proc Modifiers : Insp / Exp Reason for Study: chest pain Clinical History: xiphoialgia Report Status: Verified Date Reported: OCT 21, 2024 Date Verified: OCT 21, 2024 Company Laundry Worker E-Sig:/ES/DARIUS SANCHEZ Report: EXAMINATION: CHEST X-RAY, 2 VIEWS DATE: 10/21/2024 9:02 AM HISTORY: chest pain. COMPARISON: None. VIEWS: PA and lateral FINDINGS: Heart size is normal. Lungs are clear. No pleural effusion. Impression: No active disease. Primary Interpreting Staff: DARIUS SANCHEZ, RADIOLOGIST (Company Laundry Worker) /DARIUS LYNN [facility] Encounter Notes: All associated encounter notes This section contains the clinical notes associated to the Encounter. Date/Time Encounter Note(s) Provider Source Dec 04, 2024 12:43 PM PHYSICIAN LETTERS: LOCAL TITLE: TEST RESULT GENERAL LETTER STL STANDARD TITLE: PHYSICIAN LETTERS DATE OF NOTE: DEC 04, 2024@12:43 ENTRY DATE: DEC 04, 2024@12:43:31 AUTHOR: SANDRINE GAITAN COSIGNER: URGENCY: STATUS: COMPLETED [facility] [address] [place] [address] DEC 04, 2024 MOHAN ALEXANDER [address], [place] [address] Dear Mohan Alexander, I would like to update you on your recent MRI test results ordered by DWAYNE Pinedo. I have attempted to call you but unable to reach you. Please call clinic at [phone] to discuss further. OTHER TEST RESULTS RADIOLOGY (NON-INVASIVE TEST RESULTS): MRI SHOULDER RIGHT FINDINGS: Because of pain the patient was only able to undergo to MR sequences consist axial fat sat turbo spin-echo and coronal T1. Both sequences are compromised by motion. This limited nondiagnostic exam demonstrates moderate acromioclavicular joint osteoarthritis without significant direct impingement on the supraspinatus muscle body/tendon complex. Intermediate signal intensity abnormality is seen within the supraspinatus tendon on T1. Unfortunately there are no coronal T2 or STIR sequences to further characterize. Small glenohumeral joint effusion. Glenoid labrum and proximal biceps tendon grossly intact. Impression: Nondiagnostic right shoulder MRI; only 2 MRI sequences obtained, both compromised by motion. Examination will need to be rescheduled when patient is able to better tolerate the study. PLAN Thank you for choosing the [facility] for your healthcare. FUTURE APPOINTMENTS: 12/11/2024 10:00 [facility] PA[facility] PHONE PATRICIO 07 12/31/2024 14:00 [facility] PACT NUTR 04/14/2025 15:00 [facility] PA[facility] 7 PCP Sincerely, SANDRINE GAITAN, MSN LINE MANAGER-C NURSE PRACTITIONER MOHAN ALEXANDER [facility] Dec 04, 2024 12:41 PM ADMINISTRATIVE NOT E: LOCAL TITLE: ADMINISTRATIVE STL STANDARD TITLE: ADMINISTRATIVE NOTE DATE OF NOTE: DEC 04, 2024@12:41 ENTRY DATE: DEC 04, 2024@12:41:30 AUTHOR: SANDRINE GAITAN EXP COSIGNER: URGENCY: STATUS: COMPLETED attempted to call pt to assess further after recieved a message from MRi staff. No answer. left vm with team c call back number. /es/ SANDRINE GAITAN MSN LINE MANAGER-C NURSE PRACTITIONER Signed: 12/04/2024 12:42 SANDRINE GAITAN [facility] Oct 21, 2024 11:50 AM PHYSICIAN LETTERS: LOCAL TITLE: TEST RESULT GENERAL LETTER STL STANDARD TITLE: PHYSICIAN LETTERS DATE OF NOTE: OCT 21, 2024@11:50 ENTRY DATE: OCT 21, 2024@11:50:14 AUTHOR: CONOR PINEDO EXP COSIGNER: URGENCY: STATUS: COMPLETED [facility] [address] [place] [address] OCT 21, 2024 MOHAN ALEXANDER [address], [place] [address] Dear Mohan Alexander, I would like to update you on your recent test results. HIV - Human immunodeficiency virus is a condition in humans in which the immune system begins to fail, leading to life-threatening opportunistic infections. HIV FOURTH GENERATION: Collection DT Specimen Test Name Result Units Ref Range 10/21/2024 09:19 SERUM HIV Combo Nonreactive S/CO Ref: Nonreactive These readings are within normal limits. HEMOGLOBIN A1C - Gives us information about your diabetes (sugar or glucose) control over the past 3 months. Your target is to keep your A1C below 5.7%. HGA1C 5.1 % 10/21/2024 09:19 These readings are within normal limits. Hep C - This is important information about your exposure to infectious disease. Infection with hepatitis C can lead to liver damage. Hepatitis C has effective treatment. [facility] Hep C tests in last five years. HEP C Ab HCV Ab (RUST) Nonreactive S/CO (10/21/24 09:19) The reading for Hep C was negative. ELBOW,RIGHT,3+VIEWS Exam Date: OCT 21, 2024@09:03 Impression: No acute fracture or dislocation. Osteoarthritic changes with small elbow joint effusion. X-ray shows evidence of arthritis in small joint effusion in your elbow. Recommend using ice as needed for pain control. In addition, you may take ibuprofen [id number] as needed for pain. Please continue the plan of care discussed during your office visit to establish care with the physical therapist. ELBOW,LEFT, 3+VIEWS Exam Date: OCT 21, 2024@09:03 Impression: Mild osteoarthritic changes with small joint effusion. X-ray shows evidence of arthritis in small joint effusion in your elbow. Recommend using ice as needed for pain control. In addition, you may take ibuprofen [id number] as needed for pain. Please continue the plan of care discussed during your office visit to establish care with the physical therapist. SHOULDER,RIGHT,2 OR MORE VIEWS Exam Date: OCT 21, 2024@09:03 Predisposition to rotator cuff injury and moderate acromioclavicular osteoarthritis but no fracture, subluxation, dislocation, focal destructive process or other specific source of symptoms. X-rays showes moderate arthritis in your shoulder. Please continue the plan of care discussed during your office visit to establish care with the physical therapist. PLAN Please continue your treatment as we discussed during your visit. If you have any questions please call your correctional counselor/case manager. I look forward to seeing you at your next clinic appointment. Thank you for choosing the [facility] for your healthcare. FUTURE APPOINTMENTS: 10/21/2024 14:00 DAIJA MORRISSEY PACT NUTR 11/04/2024 09:00 [facility] 04/14/2025 15:00 [facility] PA[facility] 7 PCP Sincerely, CONOR PINEDO, MSN, AGNP-C NURSE PRACTITIONER MOHAN ALEXANDER TAYLOR L [facility] Oct 15, 2024 02:47 PM ORTHOTICS PROSTHET ICS NOTE: LOCAL TITLE: PROSTHETICS FOOT EVALUATION STL STANDARD TITLE: ORTHOTICS PROSTHETICS NOTE DATE OF NOTE: OCT 15, 2024@14:47 ENTRY DATE: OCT 15, 2024@14:48:07 AUTHOR: CONOR PINEDO EXP COSIGNER: URGENCY: STATUS: COMPLETED PROSTHETICS FOOT EVALUATION DIAGNOSIS: pes planus [place]-Filament Test: Sep (within last 30 days) Sensation: Intact Circulation: Pedal Pulses: Posterior Tibial LEFT: Present RIGHT: Present Dorsalis Pedis LEFT: Present RIGHT: Present Hair Present: No History of Ulcers/Amputation: No List specific issues below. If none, indicate none below. pes planus ASSESSMENT: Foot Risk Score Level 1 LOW RISK - NOT eligible for shoes - DO NOT enter consult request Foot deformity Minor foot infection (with diabetes) /es/ АНДРЕЙ PRINGLE, AGNP-C NURSE PRACTITIONER Signed: 10/15/2024 15:05 CONOR PINEDO [facility] Oct 15, 2024 02:14 PM PRIMARY CARE NOTE: LOCAL TITLE: PRIMARY CARE PROVIDER ESTABLISHED VISIT ST STANDARD TITLE: PRIMARY CARE NOTE DATE OF NOTE: OCT 15, 2024@14:14 ENTRY DATE: OCT 15, 2024@14:14:10 AUTHOR: CONOR PINEDO EXP COSIGNER: URGENCY: STATUS: COMPLETED ESTABLISHED PATIENT SSCS-DY-[id number] REASON FOR VISIT/CHIEF COMPLAINT: follow up; bilateral elbow pain, right shoulder pain, refurbish shoes inserts HPI: PMH, see problem list 49 y/o male who presents to the medical clinic for his scheduled follow up visit. The purpose of the visit today is to follow up on the veterans chronic medical conditions. Last PCP visit: 07/08/2024 Complaints of dominant right shoulder pain that started ~ 4 weeks. The endorses he was working out bench pressing and dumbbBolongaro Trevor. The reports his ROM is limited since his injury. Cannot tolerate holding a water bottle. The reports the pain is constant. He has been taking OTC NSAIDS PRN for severe pain. The is requesting community care consult for PT. [facility]. HTN. Home readings: SBP ave 118-138/81. Denies c/o SOB, CP, CHAN, Blurred vision, peripheral edema. Bilateral elbow pain. Worse with activities such as lifting weights or holding welding rods. [place] has been in [employer]. WHAT IS YOUR GOAL FOR TODAY? F/U chronic medical conditions SOURCE(S) OF HISTORY: -Patient PAST MEDICAL HISTORY: 1) HTN - Hypertension ([facility] [id number]) 2) Tobacco User ([facility] [id number]) 3) Current drinker 4) Obstructive Sleep Apnea of Adult ([facility] [id number]) 5) Foot pain 6) Alcoholic fatty liver 7) GERD - Gastro-Esophageal Reflux Disease ([facility] [id number]) 8) Hyperlipidemia ([facility] [id number]) 9) Exposure to potentially hazardous substance SURGICAL HISTORY: - Bilateral foot surgery in the past, unknown type FAMILY MEDICAL HISTORY: DM: mother and father CAD/IHD: mother and father-HTN CA: none SOCIAL HISTORY: Nicotine: quit smoking 11/2023. Smoked 1 PPD x since 1996 Alcohol: consumes 1 drinks per week Illicit Drugs: none -Lives: with and kids Allergy: FIRE ANT VENOM Allergy list reviewed and remains current. MEDICATIONS: Active Outpatient Medications (including Supplies): Active Outpatient Medications Status 1) ATORVASTATIN CALCIUM 40MG TAB TAKE ONE-HALF TABLET BY MOUTH ACTIVE (S) EVERY EVENING Indication: FOR HIGH CHOLESTEROL 2) CALCIUM POLYCARBOPHIL 625MG TAB TAKE TWO TABLETS BY MOUTH ACTIVE (S) ONCE A DAY Indication: FOR FIBER SUPPLEMENTATION 3) EPI(EQV-ADRENACLICK)0.3MG/0.3 ML INJCTR INJECT 1 PEN ACTIVE (0.3MG/0.3ML) INTRAMUSCULARLY ONE-TIME Indication: FOR ALLERGIC REACTION 4) IRBESARTAN 75MG TAB TAKE ONE TABLET BY MOUTH ONCE A DAY ACTIVE Indication: FOR HIGH BLOOD PRESSURE 5) LOPERAMIDE HCL 2MG CAP TAKE TWO CAPSULES BY MOUTH ONCE A DAY ACTIVE NEEDED Indication: FOR DIARRHEA 6) NICOTINE 4MG GUM CHEW 1 PIECE OF GUM BY MOUTH EVERY 4 HOURS ACTIVE NEEDED CHEW GUM UNTIL TINGLING SENSATION, THEN PARK THE GUM BETWEEN CHEEK AND GUM AREA. REPEAT (RE-CHEW) WHEN TINGLING STOPS. Indication: FOR TOBACCO CESSATION MEDICATION RECONCILIATION: completed REVIEW OF SYSTEMS: See HPI for further details of positive complaints. All 10 systems reviewed and otherwise negative. PHYSICAL EXAMINATION: VITALS (most recent, as listed in the electronic record): Temperature: 98 F [36.7 C] (10/15/2024 14:01) BP: 118/72 (10/15/2024 14:01) Pulse: 73 (10/15/2024 14:01) Resp: 18 (10/15/2024 14:) PulsOx: 73% (10/15/2024 14:01) Pain: 4 (10/15/2024 14:01) Weight: Measurement DT WEIGHT LB(KG)[BMI] 10/15/2024 14:01 300.2(136.17)[39*] 10/14/2024 16:25 293.6(133.17)[38*] 07/08/2024 14:13 348(157.85)[45*] PHYSICAL EXAMINATION: General appearance: well-groomed, well-nourished, in no distress HEENT: sclera/conjunctiva clear, TMs pearly miles, nares patent no secretions or inflammation, oropharynx WNL Neck: supple, no lymphadenopathy or thyromegaly Cardiovascular: RRR, no murmur, no gallop Respiratory: CTA, no wheezes, crackles or rhonchi ABD/GI: Obese contour, bs + in all quads, non-tender M/S: normal gait and posture Shoulder pain assessment: AROM/PROM limited with flexion, extension, lateral internal and external rotation. hand truck driver helper equal bilaterally, radial pulses intact, no audible popping or clicking Elbow pain assessment: AROM/PROM intact. no erythema, or edema, no tenderness over olecranon. Extremities: radial/PT pulses 2+, warm, well-perfused Psych: normal affect Neuro: Alert and oriented x 3 Skin: warm, dry, normal color and texture, skin intact DATA REVIEW: HGA1C 5.9 % 07/14/2024 09:20 HGA1C 5.9 % 10/23/2023 09:11 HGA1C 5.6 % 10/19/2022 08:30 Lipid Panel: TRIGLYCERIDE 210 H mg/dL 07/23/2024 08:40 CHOLESTEROL 136 mg/dL 07/23/2024 08:40 HDL(New) 26 L mg/dL 07/23/2024 08:40 DIRECT LDL 82 L mg/dL 07/14/2024 09:20 CALCULATED LDL 68 mg/dL 07/23/2024 08:40 CMP: SODIUM 141 mEq/L 07/14/2024 09:20 POTASSIUM 4.9 mEq/L 07/14/2024 09:20 CHLORIDE 109 H mEq/L 07/14/2024 09:20 UREA NITROGEN 15.2 mg/dL 07/14/2024 09:20 CREATININE 0.81 mg/dL 07/14/2024 09:20 CALCIUM 9.5 mg/dL 07/14/2024 09:20 PROTEIN 7.2 g/dL 07/23/2024 08:40 ALBUMIN 4.0 g/dL 07/23/2024 08:40 ALKALINE PHOSPHATASE 80 U/L 07/23/2024 08:40 ALT/SGPT 58 H U/L 07/23/2024 08:40 AST/SGOT 35 H U/L 07/23/2024 08:40 TOTAL BILIRUBIN 0.5 mg/dL 07/23/2024 08:40 CARBON DIOXIDE 23 mEq/L 07/14/2024 09:20 GLUCOSE 120 H mg/dL 07/14/2024 09:20 EGFR (CKD-EPI 2020) 109.4 07/14/2024 09:20 CBC: WBC 9.5 10*3/uL 07/14/2024 09:20 RBC 4.97 10*6/uL 07/14/2024 09:20 HGB 15.9 g/dL 07/14/2024 09:20 HCT 46.1 % 07/14/2024 09:20 MCV 92.8 fL 07/14/2024 09:20 MCH 32.0 pg 07/14/2024 09:20 MCHC 34.5 g/dL 07/14/2024 09:20 RDW 11.9 % 07/14/2024 09:20 PLT 291 10*3/uL 07/14/2024 09:20 MPV 11.1 fL 07/14/2024 09:20 NEUTROPHILS, AUTO % 66 % 07/14/2024 09:20 LYMPHOCYTES, AUTO % 23 % 07/14/2024 09:20 MONOCYTES, AUTO % 9 % 07/14/2024 09:20 EOSINOPHILS, AUTO % 1 % 07/14/2024 09:20 BASOPHILS, AUTO % 0 % 07/14/2024 09:20 NEUTROPHILS, ABSOLUTE 6.27 10*3/uL 07/14/2024 09:20 LYMPHOCYTES, ABSOLUTE 2.18 10*3/uL 07/14/2024 09:20 MONOCYTES, ABSOLUTE 0.86 H 10*3/uL 07/14/2024 09:20 EOSINOPHILS, ABSOLUTE 0.13 10*3/uL 07/14/2024 09:20 BASOPHILS, ABSOLUTE 0.03 10*3/uL 07/14/2024 09:20 TSH: TSH 1.218 uIU/mL 07/14/2024 09:20 UA: URINE COLOR Light-Yellow 10/25/2022 11:51 APPEARANCE Clear 10/25/2022 11:51 U.PH 6.0 10/25/2022 11:51 U.BILIRUBIN Negative mg/dL 10/25/2022 11:51 U.NITRITE Negative mg/dL 10/25/2022 11:51 URINE RBC/HPF 1 /HPF 10/19/2022 08:30 URINE WBC/HPF 11 H /HPF 10/19/2022 08:30 SQUAMOUS EPITH. 2 /HPF 10/19/2022 08:30 MUCUS MANY /LPF 10/19/2022 08:30 Micral: CREATuF: 82.8 (10/23/23 09:11) M/CREAT: 8 (10/23/23 09:11) MICRAL: 6.5 (10/23/23 09:11) ASSESSMENT/PLAN: # Acute R shoulder pain: - Check R shoulder x-ray and MRI based on clinical exam. PT consult placed for consideration of community care services. # Bilateral elbow pain: - Order bilateral elbow x-rays. Refer to PT [facility] Concern for medial epicondylitis # HTN: - Blood pressure stable. Continue [...] help to control blood pressure. # Tobacco Use: - Remains free of tobacco use. Acknowledgement and encouragement of success. # Reports history of AFIB for 6 months >4 years ago: - Underwent cardioversion. Did not tolerate BB. No recent AFIB. His loss control technician recommended ASA 81mg lifelong. # GERD: - Eval/management per GI clinic - EGD completed on 08/14/2023 demonstrated evidence of LA Grade B esophagitis. - Continue pantoprazole as directed # NAFLD: - Eval/management per GI clinic - 02/01/21 US: normal-appearing liver, no ascites; Fibro scan last year did not show any evidence of advanced fibrosis. Trend LFT. Continue lifestyle modifications # Chronic pain in foot, bilateral: - Needs prosthetics consult to refurbish shoe inserts. # Obesity: - Weight gradually trending down since he modified his diet. [place] will establish with [facility] soon. # Chronic diarrhea/hematochezia: - Resolved with modifying diet. HM: Colorectal cancer screening: Last completed: C-scope 08/14/2023 Due: 03/2026 Prostate cancer screening: Last completed: defer due to age Lung cancer screening: Eligibility: defer due to age AAA Screening: Eligibility: defer due to age ADMINISTERED Immunization Series Date Facility Reaction Info COVID-19 (MODERNA), MRNA, LNP-S,* 3 10/08/2021 No Site COVID-19 (MODERNA), MRNA, LNP-S,* 2 10/21/2020 No Site COVID-19 (MODERNA), MRNA, LNP-S,* 1 09/20/2020 No Site COVID-19 (MODERNA), MRNA, LNP-S,* 1 04/17/2023 [facility]* COVID-19 (PFIZER), MRNA, LNP-S, * 07/08/2024 [facility]* INFLUENZA, SPLIT VIRUS, QUADRIVA* 04/17/2023 [facility]* INFLUENZA, SPLIT VIRUS, TRIVALEN* 07/08/2024 [facility]* INFLUENZA, UNSPECIFIED FORMULATI* [facility] PNEUMOCOCCAL POLYSACCHARIDE PPV23 07/08/2024 [facility]* TDAP B 10/17/2023 [facility]* REFUSED ======= Immunization Date Facility Info PNEUMOCOCCAL CONJUGATE, UNSPECIF* 10/17/2023 [facility]* <I> TDAP 10/17/2023 [facility]* <I> TDAP 10/18/2022 [facility]* <I> clinical reminders completed; educated on continuing to avoid salt, conc sweets; benefits of continued exercise, reg PCP visits, routine eyes exams Plan of care has been discussed with including expected therapeutic benefits and potential side effects of prescribed medications and treatments. Current medication list has been reconciled with and updated accordingly. was instructed to keep all scheduled appointments and to contact off track betting manager for any additional problems. [place] verbalizes understanding and is in agreement with the plan of care. RTC: PREVENTION & SCREENING: ALCOHOL: Clinical Reminder not due now or within a month BLOOD PRESSURE: Clinical Reminder not due now or within a month HEMOGLOBIN A1C: Clinical Reminder not due now or within a month Hepatitis C Testing - L,N,P,PH: Patient has given verbal consent for HCV antibody testing. An HCV lab test has been ordered - see orders tab. HIV Screening (Routine): Patient has given verbal consent for HIV antibody testing, and written educational materials have been provided. An order for an HIV Antibody test has been entered - see orders tab. RHS Screen - VS: RHS Screen Environmental Check Upon inquiry, the individual reports that the environment is safe to proceed. Informed Consent to Screen and Document The individual consents to proceed with screening. The individual consents to documentation of responses. PRIMARY SCREEN: In the past 12 months, how often did a current or former intimate partner (e.g., boyfriend, girlfriend, , , sexual partner): 1. Scream or curse at you Never 2. Insult or talk down to you Never 3. Threaten you with harm Never 4. Physically hurt you Never 5. Force or pressure you to have sexual contact against your will, or when you were unable to say no Never The HITS tool (items 1-4 above) is [place] copyright protected by Virgilio Arora MD, and the user has full rights to use it throughout the [place] system. PRIMARY SCREEN RESULT: The Primary Screen is NEGATIVE. The individual answered never to all forms of IPV above (i.e., answered never to all 5 items) The individual accepts education and/or resources: No EDUCATION: The individual indicated readiness to learn. Education offered during this session as noted above. The individual indicated understanding by asking relevant questions and making appropriate comments. No barriers to learning were observed or identified. /stacy/ CONOR PINEDO, MSN, AGNP-C NURSE PRACTITIONER Signed: 10/15/2024 16:29 CONOR PINEDO [facility] Oct 15, 2024 02:08 PM NURSING NOTE: LOCAL TITLE: V15 PACT FACE TO FACE NOTE STL STANDARD TITLE: NURSING NOTE DATE OF NOTE: OCT 15, 2024@14:08 ENTRY DATE: OCT 15, 2024@14:08:24 AUTHOR: NBA JADE EXP COSIGNER: URGENCY: STATUS: COMPLETED V15 PACT FACE TO FACE NOTE STL Has ADDENDA Provider Visit: Patient Identifiers : Full Name Date of Reason for visit: Established Follow-Up Mode of Arrival: Ambulatory Allergy Review: FIRE ANT VENOM Allergy list reviewed and remains current. Recent Vital Signs: Temperature: 98 F [36.7 C] (10/15/2024 14:01) Pulse: 73 (10/15/2024 14:01) Respiration: 18 (10/15/2024 14:01) B/P: 118/72 (10/15/2024 14:01) Pain: 4 (10/15/2024 14:01) Wt: 300.2 lb [136.17 kg] (10/15/2024 14:01) Ht: 74 in [188.0 cm] (10/17/2023 13:24) BMI: 38.6 POX: 73% (10/15/2024 14:01) PERSONAL HEALTH INVENTORY Notes: No data available for PHI note titles PERSONAL HEALTH INVENTORY - MAP: 07/08/2024 Personal Health Plan [place], [place], [place] (MAP) my kids What matters most to you in your life right now? 's Response: -family WHOLE HEALTH SHARED GOALS: PERSONAL HEALTH PLAN - SHARED GOALS: No data available for: Php Shared Goals SHARED GOALS shoulder and elbow (right ) Would you like to discuss any personal problem, family problem, alcohol use, drug use, or a mental or emotional illness? No [facility] ([facility]), please select appointment type: Face to face: Yes- Done Contact provided Primary Care phone number and encouraged to call if any questions or concerns. Review that after hours nurse line [phone] and emergency room are available 21/01 for patient use. Contact verbalized good understanding. No notification required for this note. /stacy/ NBA JADE RN, MSN REGISTERED NURSE Signed: 10/15/2024 14:12 10/15/2024 ADDENDUM STATUS: COMPLETED Suicide Screen - V: C-SSRS Screening [place] Suicide Severity Rating Scale (C-SSRS) screener 1. Over the past month, have you wished you were or wished you could go to sleep and not wake up? No 2. Over the past month, have you had any actual thoughts of killing yourself? No 3. Over the past month, have you been thinking about how you might do this? Response not required due to responses to other questions. 4. Over the past month, have you had these thoughts and had some intention of acting on them? Response not required due to responses to other questions. 5. Over the past month, have you started to work out or worked out the details of how to kill yourself? Response not required due to responses to other questions. 6. If yes, at any time in the past month did you intend to carry out this plan? Response not required due to responses to other questions. 7. In your lifetime, have you ever done anything, started to do anything, or prepared to do anything to end your life (for example, collected pills, obtained a gun, gave away valuables, went to the roof but didn't jump)? No 8. If YES, was this within the past 3 months? Response not required due to responses to other questions. Sexual Orientation - CP,L,N,P,PH,PS,S,U: The patient thinks of their sexual orientation as: Straight or Heterosexual Alcohol Use Screen (AUDIT-C) - V: Alcohol Screen: SCREEN FOR ALCOHOL (AUDIT-C) An alcohol screening test (AUDIT-C) was negative (score=0). 1. How often did you have a drink containing alcohol in the past year? Consider a drink to be a 12 ounce can or bottle of regular beer, 8 ounces of malt liquor, a 5 ounce glass of table wine, or a 1.5 ounce shot of liquor (like scotch, gin, or vodka). Never 2. How many drinks containing alcohol did you have on a typical day when you were drinking in the past year? Response not required due to responses to other questions. 3. How often did you have six or more drinks on one occasion in the past year? Response not required due to responses to other questions. Depression Screening - V: Perform PHQ-2 A PHQ-2 screen was performed. The score was 0 which is a negative screen for depression. Over the past two weeks, how often have you been bothered by the following problems? 1. Little interest or pleasure in doing things Not at all 2. Feeling down, depressed, or hopeless Not at all Tobacco Use Screening - AT,DE,L,M,N,P,PH,PS,RT,S,U: The patient is a former cigarette smoker. The patient has never used other types of tobacco. /es/ NBA JADE RN, MSN REGISTERED NURSE Signed: 10/15/2024 14:35 NBA JADE [facility]
--- OUTSIDE RECORDS SUMMARY | 2025-01-31 15:29 | XMS_ITS ---
[place] [facility] [facility] [place] IN [facility] Encounter Summary Created on: November 08, 2024 BENJAMINDONOVAN MARIA ANTONIA : 1975 Sex: Male Author Name [facility] [place] [facility] [place] Address [address] [place] [address] Care Team Providers Care Senior Informatica Developer Name Role Phone CONOR GATES Primary Care [...] NAL I.A.M . BENE Jul 01, 2022 [id number] [phone] SAMY ALEXANDER PATIENT [facility] NATIO NAL I.A.M . BENE Jul 01, 2022 [id number] [phone] SAMY ALEXANDER PATIENT Selected Encounter This section includes the information on record at [place] for the Encounter. Date/Time Encounter Type Encounter Description Reason Provider Source Oct 21, 2024 02:00 PM MEDICAL NUTRITION INDIV IN PRIMARY CARE/MEDICINE ICD-10-CM E66.812 Obesity, class 2 SAULSBERY,SELEN A D IHE Encounter Template Text not used by [facility] Assessments - Encounter Diagnoses This section includes the primary and secondary diagnoses documented for the Encounter. Date/Time Primary/Secondary Diagnosis Diagnosis Name Provider Source November 02, 2024 07:45 AM PRIMARY Obesity, class 2 KARTHIK BROWN MANDI Gaffney [facility] November 02, 2024 07:45 AM SECONDARY Dietary counseling and surveillance KARTHIK BROWN Gulshan [facility] Plan of Treatment: Future Appointments (+ 6 months) and Future Tests (+/- 45 days) The Plan of Treatment section includes future care activities for the patient from [facility] [place] [facility] This section includes future appointments and future orders which are active, pending or scheduled. Future Appointments This section includes appointments that were scheduled to occur 6 months from the date of the Encounter, up to a maximum of 20 appointments. The data comes from all [place] treatment [facility] Appointment Date/Time Appointment Type Appointme nt Facility Name October 29, 2024 09:30 AM AMBULATORY - MEDICINE [facility] November 17, 2024 11:00 AM AMBULATORY - MEDICINE [facility] Dec 04, 2024 07:30 AM AMBULATORY - NONE [facility] Dec 31, 2024 02:00 PM AMBULATORY - NONE [facility] Apr 14, 2025 03:00 PM AMBULATORY - MEDICINE [facility] Active, Pending, and Scheduled Orders This section includes a listing of several types of active, pending, and scheduled orders, including clinic medications orders, diagnostic test orders, procedure orders and consult orders; where the start date of the order is 45 days before the date of the Encounter or 45 days after the date of theEncounter. The data comes from all [facility]. Test Date/Time Test Type Test Details Facility Name Oct 16, 2024 11:54 AM Consult Order [facility] Cons Director Hematology's Choice [facility] Dec 04, 2024 12:00 AM Imaging - Magnetic Resonance Imaging (MRI) Order MRI SHOULDER RIGHT RIGHT [facility] Lab Results: +/- 30 days of the encounter This section includes the Chemistry and Hematology Lab Results on record with [place] for the patient. Radiology Reports and Pathology Reports are provided separately, in subsequent sections. Lab Results This section contains the Chemistry/Hematology Results that were resulted 30 days before or 30 daysafter the date of the Encounter. Date/Time Source Result Type Result - Unit Interpretation Reference Range Specimen Type Comment Oct 21, 2024 09:19 AM [facility] HGA1C BLOOD Specimen Type: BLOOD No comment entered. Ordering Provider: CONOR GATES Report Released Date/Time: Oct 15, 2024 02:41 PM Reporting Lab: [facility] [address] [place] [id number] Performing Lab: [address] [address] HGA1C 5.1 4.0-6.0 Oct 21, 2024 09:19 AM [facility] HIV COMBO FOURTH GENERATION (STL) SERUM Speci men Type: SERUM No comment entered. Ordering Provider: CONOR GATES Report Released Date/Time: Oct 15, 2024 04:23 PM Reporting Lab: [address] [address] Performing Lab: [address] [address] HIV COMBO FOURTH GENERATION (STL) Nonreactive Nonreactive Oct 21, 2024 09:19 AM [facility] HEP C Ab HCV Ab (STL) SERUM Specime n Type: SERUM No comment entered. Ordering Provider: CONOR GATES Report Released Date/Time: Oct 15, 2024 04:23 PM Reporting Lab: [address] [phone] Performing Lab: [address] [phone] HEP C Ab HCV Ab (STL) Nonreactive Nonrea ctive Oct 21, 2024 09:18 AM [facility] HEPATIC FUNTION PANEL (STL) PLASMA Specimen Ty pe: PLASMA No comment entered. Ordering Provider: EVETTE PENALOZA Report Released Date/Time: Oct 21, 2024 08:53 AM Reporting Lab: [address] [address] Performing Lab: [address] [address] PROTEIN 7.3 g/dL 6-8.6 ALBUMIN 4.3 g/dL 3.4-5 TOTAL BILIRUBIN 1.2 mg/dL 0.2-1.2 ALKALINE PHOSPHATASE 98 U/L 40-150 AST/SGOT 34 U/L 5-34 ALT/SGPT 36 U/L 8-40 CONJ. BILIRUBIN 0.5 mg/dL 0-0.5 Social History: Smoking Status (Most current) and Tobacco Use (All prior to encounter date) This section includes the most current, and the historical, smoking and tobacco- related health factors from the [place] facility where the Encounter took place. Current Smoking Status This section includes the most current smoking, or tobacco-related health factor, from the [place] facility where the Encounter took place. Date/Time Current Smoking Status Comment Facil ity Oct 15, 2024 02:00 PM VA-TOBACCO USE FORMER CIGARETTES [facility] Tobacco Use History This section includes a history of the smoking, or tobacco-related health factors, that were collected on or before the date of the Encounter. The data comes from the [place] facility where the Encounter took place. Date/Time Smoking Status/Tobacco Use Comment F acility Oct 15, 2024 02:00 PM VA-TOBACCO USE FOR SUKUMAR CIGARETTES [facility] Oct 17, 2023 01:30 PM VA-TOBACCO NEVER USED [facility] Oct 18, 2022 01:00 PM VA-TOBACCO USE > 1 [address] THAN [address] [facility] Oct 18, 2022 01:00 PM VA-TOBACCO USE ADVICE 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 Oct 18, 2022 01:00 PM VA-TOBACCO USE MED NOTIFY PROVIDER CONOR NARVAEZ [facility] Oct 18, 2022 01:00 PM VA-TOBACCO USE WI [address] [facility] Oct 18, 2022 01:00 PM VA-TOBACCO USER EVERY DAY [facility] Radiology Reports: +/- 30 days [...] the Encounter. The data comes from all [place] treatment facilities. Date/Time Radiology Report Provider Source Oct 21, 2024 09:03 AM SHOULDER,RIGHT,2 O R MORE VIEWS: DONOVAN ALEXANDER [id number] -1975 M Exm Date: OCT 21, 2024@09:03 Req Phys: CONOR GATES Loc: [facility] PACT 7 PCP (Req'g Loc) Im Loc: [facility] SUITE Service: Unknown [address] [address] (Case [id number] COMPLETE) SHOULDER,RIGHT,2 OR MORE VIEWS (RAD Detailed) CPT:05314 Proc Modifiers : RIGHT Reason for Study: acute right shoulder pain Clinical History: Report Status: Verified Date Reported: OCT 21, 2024 Date Verified: OCT 21, 2024 Boiler Repairman E-Sig:/ES/DARIUS SANCHEZ Report: EXAMINATION: SHOULDER,RIGHT,2 OR MORE [...] source of symptoms. Primary Interpreting Staff: DARIUS SANCHEZ RADIOLOGIST (Boiler Repairman) /DARIUS LYNN [facility] Oct 21, 2024 09:03 AM ELBOW,RIGHT,3+VIEW S: DONOVAN ALEXANDER [id number] -1975 M Exm Date: OCT 21, 2024@09:03 Req Phys: CONOR GATES Loc: [facility] PACT 7 PCP (Req'g Loc) Img Loc: [facility] SUITE Service: Unknown [address] [address] (Case [id number] COMPLETE) ELBOW,RIGHT,3+VIEWS (RAD Detailed) CPT:37686 Proc Modifiers : RIGHT Reason for Study: chronic elbow pain Clinical History: Report Status: Verified Date Reported: OCT 22, 2024 Date Verified: OCT 22, 2024 Boiler Repairman E-Sig:/ES/AUDIE JENNINGS Report: Case [id number]. ELBOW,RIGHT,3+VIEWS. Comparison: None Findings: There is no evidence of fracture or dislocation. No bone destruction is present. 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 Small elbow joint effusion is noted. Impression: No acute fracture or dislocation. Osteoarthritic changes with small elbow joint effusion. Primary Interpreting Staff: AUDIE JENNINGS MD (Boiler Repairman) /AUDIE SOLANO [facility] Oct 21, 2024 09:03 AM ELBOW,LEFT, 3+VIEW S: DONOVAN ALEXANDER [id number] -1975 M Exm Date: OCT 21, 2024@09:03 Req Phys: CONOR GATES Loc: -[place] PACT 7 PCP (Req'g Loc) Img Loc: -MAIN RADIOLOGY SUITE Service: [address] [address] (Case [id number] COMPLETE) ELBOW,LEFT, 3+VIEWS (RAD Detailed) CPT:48371 Proc Modifiers : LEFT Reason for Study: chronic elbow pain Clinical History: Report Status: Verified Date Reported: OCT 22, 2024 Date Verified: OCT 22, 2024 Boiler Repairman E-Sig:/ES/AUDIE JENNINGS Report: Case [id number]. ELBOW,LEFT, 3+VIEWS. Comparison: None Findings: There is no evidence of fracture or dislocation. No bone destruction is present. Osteoarthritic changes are noted with osteophyte formation between the capitellum and the trochlea. Small elbow joint effusion is noted. Impression: Mild osteoarthritic changes with small joint effusion. Primary Interpreting Staff: AUDIE JENNINGS MD (Boiler Repairman) /AUDIE SOLANO [facility] Oct 21, 2024 09:02 AM CHEST X-RAY, 2 VIE WS: DONOVAN ALEXANDER [id number] -1975 M Exm Date: OCT 21, 2024@09:02 Req Phys: EVETTE PENALOZA Jina Loc: - [place] (Req'g Loc) Img Loc: -MAIN RADIOLOGY SUITE Service: Unknown [facility] [address] [place] [address] (Case [id number] COMPLETE) CHEST X-RAY, 2 VIEWS (RAD Detailed) CPT:75245 Proc Modifiers : Insp / Exp Reason for Study: chest pain Clinical History: xiphoialgia Report Status: Verified Date Reported: OCT 21, 2024 Date Verified: OCT 21, 2024 Boiler Repairman E-Sig:/ES/DARIUS SANCHEZ Report: EXAMINATION: CHEST X-RAY, 2 VIEWS DATE: 10/21/2024 9:02 AM HISTORY: chest pain. COMPARISON: None. VIEWS: PA and lateral FINDINGS: Heart size is normal. Lungs are clear. No pleural effusion. Impression: No active disease. Primary Interpreting Staff: DARIUS SANCHEZ, RADIOLOGIST (Boiler Repairman) /DARIUS LYNN [facility] Encounter Notes: All associated encounter notes This section contains the clinical notes associated to the Encounter. Date/Time Encounter Note(s) Provider Source Oct 21, 2024 01:50 PM NUTRITION DIETETIC S E & M NOTE: LOCAL TITLE: NUTRITION ASSESSMENT [facility] STANDARD TITLE: NUTRITION DIETETICS E & M NOTE DATE OF NOTE: OCT 21, 2024@13:50 ENTRY DATE: OCT 21, 2024@13:50:57 AUTHOR: ROLANDA BROWN COSIGNER: URGENCY: STATUS: COMPLETED Modality of Care: Clinical Video Telehealth Visit conducted by Clinical Video Telehealth. Patient/surrogate provided verbal consent for video telehealth. Patient location confirmed. Emergency number confirmed. Patient Contact Details: Best contact number for backup communication with patient: # listed NUTRITION ASSESSMENT Diagnosis: Obesity Time spent with : 30 minutes Last appointment date: initial Id by: name, CLIENT HISTORY Patient Medical History: HTN - Hypertension Tobacco User Current drinker Obstructive Sleep Apnea of Adult Alcoholic fatty liver GERD - Gastro-Esophageal Reflux Disease Hyperlipidemia Exposure to potentially hazardous substance Treatments/therapy/alternat margarita medicine: - Utilizing [employer] plan for the last 2 months through employer. Keto diet, coaching. Monitors ketone levels, bp, glucose daily Social history: 49 YOM, with kids FOOD AND NUTRITION RELATED HISTORY Diet experience: - following low carb diet, eating 15 g pro at meals - no candies, jellies - cut out processed foods, fast foods - started to reintroduce berries into diet - describes previous diet experience to consume large portions; several helpings of meals. No longer doing this. - mixing in fat: butter - olive oil, cheese, Belgian yogurt with nuts Fluid/Beverage intake: water 64 fl oz, fizzy water - cut out sodas, sweet tea - 6am/4:30pm: cup chicken burbiollon water - pineapple juice 4 oz Food intake: B: skirt steak, egg, sweet peppers, mushrooms, spinach, zero net carb wrap L: beef stick, parmesan crisps D: baked chicken or pork loin, peas, cream of mushroom with green beans Snack: blueberries - nothing after 7pm Alcohol Intake: cut out EtOH OUTPATIENT MEDICATIONS ATORVASTATIN CALCIUM 40MG TAB TAKE ONE-HALF TABLET BY MOUTH ACTIVE (S) EVERY EVENING Indication: FOR HIGH CHOLESTEROL CALCIUM POLYCARBOPHIL 625MG TAB TAKE TWO TABLETS BY MOUTH ACTIVE (S) ONCE A DAY Indication: FOR FIBER SUPPLEMENTATION IRBESARTAN 75MG TAB TAKE ONE TABLET BY MOUTH ONCE A DAY ACTIVE (S) Indication: FOR HIGH BLOOD PRESSURE LOPERAMIDE HCL 2MG CAP TAKE TWO CAPSULES BY MOUTH ONCE A DAY ACTIVE NEEDED Indication: FOR DIARRHEA Non-VA ASCORBIC ACID TAB BY MOUTH ACTIVE Indication: FOR VITAMIN C SUPPLEMENTATION Non-VA MELATONIN CAP/TAB BY MOUTH ACTIVE Indication: FOR SLEEP Non-VA MULTIVITAMIN CAP/TAB 1 TABLET BY MOUTH ONCE A DAY ACTIVE Indication: FOR NUTRITION/DIETARY SUPPLEMENTATION KNOWLEDGE BELIEFS AND ATTITUDES - Motivated to lose weight by his birthday in a few months - Feels like his body is going a million miles a minute and that he may rage. Verbalizes that he was on edge prior to making diet changes. Unsure if it could be diet related. Working with [facility]. BEHAVIOR - Has made significant dietary changes. Feels what he has been doing is working, does not want to change much. PHYSICAL ACTIVITY AND FUNCTION Nutrition related ADLs: Eating separate meals from family. Completes his own cooking, shopping. Physical activity: 2 miles a day (1 in morning, 1 in evening) and have been taking a [employer] class 3 nights a week (2 hour class) 1 hour of low intensity, 1 hour of high intensity. ANTHROPOMETRIC MEASUREMENTS Ht: 74 in [188.0 cm] (10/17/2023 13:24) Wt: 285.5 lb. [129.50 kg] (10/21/2024 08:25) Stated weight: 277 lbs. Weight History/Significant changes: between [facility] and home scales: -71 lbs./20% in 3.5 months *significant weight loss Patient Weight History - Last Four 1. 285.5 lbs. / 129.5 kg. on OCT 21, 2024@08:25:37 2. 300.2 lbs. / 136.2 kg. on OCT 15, 2024@14:01:48 3. 293.6 lbs. / 133.2 kg. on OCT 14, 2024@16:25:09 4. 348.0 lbs. / 157.9 kg. on JUL 08, 2024@14:13:04 BMI: 36.7 Goal: 225 lbs. BP: av/80 avg BIOCHEMICAL DATA/MEDICAL TESTS AND PROCEDURES TRIGLYCERIDE 210 H mg/dL 07/23/2024 08:40 CHOLESTEROL 136 mg/dL 07/23/2024 08:40 HDL(New) 26 L mg/dL 07/23/2024 08:40 DIRECT LDL 82 L mg/dL 07/14/2024 09:20 CALCULATED LDL 68 mg/dL 07/23/2024 08:40 NUTRITION FOCUSED PHYSICAL FINDINGS Ample fat and muscle stores within camera view No GI concerns - improved with diet changes NUTRITION PRESCRIPTION Estimated energy needs: 2380 calories per day (REE x AF - 750 kcal for Wt loss) Estimated protein needs: 126 grams of protein per day (1 g/kg BW) Nutrition prescription specifics: General healthful diet, decreased energy needs NUTRITION DIAGNOSIS NEW Obesity related to decreased energy needs and disordered eating pattern as evidenced by BMI more than normative standard for age/sex: Class II, hx large portions of food, hx estimated excessive energy intake. [Category: behavior etiology] NUTRITION INTERVENTIONS - Nutrition counseling based on motivational interviewing strategy - Content related nutrition education: -- Discussed safe weight loss trajectory; significant amount of weight lost recently. -- Discussed diet vs lifestyle modification and encouraged flexibility. Benefit of carbs for energy while being attentive to portion sizes especially in light of exercise regimen. -- Recommended increase protein intake to support lean body mass; avoid muscle loss through Wt loss progress. Provided daily protein goals. -- Continue to monitor BP. Education material: verbal, [facility] Barriers to learning: none Comprehension: good NUTRITION MONITORING AND EVALUATION Measured weight: trending towards 225 lbs. goal by follow up Meal and snack pattern: - increase protein intake through f/u ( > 15 g per meal) - increase flexibility with meals to include complex carbs through the day Return to clinic: 12/31/24 Dietitian contact information provided for any follow-up questions or needs. /stacy/ ROLANDA BROWN Clinical Dietitian Signed: 10/28/2024 13:59 [facility]
--- OUTSIDE RECORDS SUMMARY | 2025-01-31 15:29 | XMS_ITS | Continuity of Care Document ---
Author Name [facility] Organization [facility] Care Team Providers Care Corrosion Control Specialist Name Role Phone [facility] Unavailable Unavailable Problems Combined list of problems from Department of Defense and Veterans Affairs facilities. It does not include entries that were removed or entered in error. Problem Status Onset Date Problem Type Date of Resolution Comments Source Alcoholic fatty liver Active Condition [facility] Current drinker Active Condition [facility] Exposure to potentially hazardous substance Active Condition [facility] Foot pain Active Condition [facility] IRVING - Generalised anxiety disorder Active Condition [facility] GERD - Gastro-Esophageal Reflux Disease ([facility] [id number]) Active Condition [facility] HTN - Hypertension ([facility] [id number]) Active Condition [facility] Hyperlipidemia ([facility] [id number][facility] Active Condition [facility] Obstructive Sleep Apnea of Adult ([facility] [id number]) Active Condition [facility] Tobacco User ([facility] [id number]) Active Condition [facility] Brace Inactive Condition Brace DoD PLANTAR FASCIITIS Inactive Condition PL ESMER FASCIITIS DoD CLOSED FRACTURE OF NAVICULAR BONE (FOOT) Active Condition CLOSED FRACTURE OF NAVICULAR BONE (FOOT) DoD UPPER RESPIRATORY INFECTION Inactive Condition UPPER RESPIRATORY INFECTION [facility] Diagnosis: ICD-10-CM E66.811 Obesity, class 1 Active Diagnosis [facility] Diagnosis: ICD-10-CM I10 Essential (primary) hypertension Active Diagnosis [facility] Diagnosis: ICD-10-CM M25.511 Pain in right shoulder Active Diagnosis [facility] Diagnosis: ICD-10-CM F41.1 Generalized anxiety disorder Active Diagnosis [facility] Diagnosis: ICD-10-CM E66.812 Obesity, class 2 Active Diagnosis [facility] Diagnosis: ICD-10-CM K21.9 Gastro-esophageal reflux disease without esophagitis Active Diagnosis [facility] Diagnosis: ICD-10-CM Z63.0 Problems in relationship with spouse or partner Active Diagnosis [facility] Diagnosis: ICD-10-CM G47.33 Obstructive sleep apnea (adult) (pediatric) Active Diagnosis [facility] Diagnosis: ICD-10-CM Z01.818 Encounter for other preprocedural examination Active Diagnosis [facility] Medications Combined list of outpatient medications from Department of Defense and Veterans Affairs facilities.Medications provided include 1) outpatient medications from the last 15 months, and 2) patient-reported medications. Medication Details Route Status Patient Instructions Prescription Expires Prescription Number Last Dispense Date Ordering Provider Order Date Order Qty Source ASCORBIC ACID TAB TAKE BY MOUTH ONCE A DAY ORAL ACTIVE CONOR GATES 2024 [facility] ATORVASTATI N [place] 40MG TAB TAKE ONE-HALF TABLET BY MOUTH EVERY EVENING FOR HIGH CHOLESTE ROL ORAL ACTIVE 10/16/2025 [id number] 5 CONOR GATES 2024 45 [facility] ATORVASTATI N CA 40MG TAB TAKE ONE-HALF TABLET BY MOUTH EVERY EVENING FOR HIGH CHOLESTE ROL ORAL DISCONT INUED 08/04/2025 [id number] 5 CONOR GATES 2024 45 [facility] ATORVASTATI N CA 40MG TAB TAKE ONE-HALF TABLET BY MOUTH EVERY EVENING FOR HIGH CHOLESTE ROL ORAL DISCONT INUED 08/12/2024 [id number] CONOR GATES 2023 45 [facility] CALCIUM POLYCARBOPH [place] 625MG TAB TAKE TWO TABLETS BY MOUTH ONCE A DAY ORAL ACTIVE 04/23/2025 [id number] Pelon PENALOZA A 2023 180 [facility] DICLOFENAC NA 1% GEL,TOP APPLY 2 GM TO AFFECTED AREA(S) FOUR TIMES A DAY NEEDED NO MORE THAN 16 GM/DAY TO ANY LOWER EXTREMIT Y JOINT. NO MORE THAN 8 GM/DAY TO ANY UPPER EXTREMIT Y JOINT. MAX 32GM/DAY OVER ALL JOINTS.( MEASURE DOSE WITH RULER INSIDE BOX) STEPHANIE Wheat ACTIVE 12/09/2025 [id number] ABDULKADIR GAITAN A 2024 300 [facility] EPINEPHRINE (EQV-ADRENA CLICK) 0.3MG/0.3ML INJECTOR INJECT 1 PEN (0.3MG/0 .3ML) INTRAMUS CULARLY ONE-TIME INTRAM USCULA R DISCONT INUED 12/15/2024 [id number] STACY GUILLEN 2024 2 [facility] EPINEPHRINE (EQV-ADRENA CLICK) 0.3MG/0.3ML INJECTOR INJECT 1 PEN (0.3MG/0 .3ML) INTRAMUS CULARLY ONE-TIME INTRAM USCULA R 12/15/2024 [id number] [place]OR[place] CADE 2024 2 [facility] IRBESARTAN 75MG TAB TAKE ONE TABLET BY MOUTH ONCE A DAY FOR HIGH BLOOD PRESSURE ORAL PROVIDE R HOLD 10/16/2025 [id number] CONOR GATES 2024 90 [facility] IRBESARTAN 75MG TAB TAKE ONE TABLET BY MOUTH ONCE A DAY FOR HIGH BLOOD PRESSURE ORAL DISCONT INUED 10/17/2024 [id number] 5 CONOR GATES 2023 90 [facility] LOPERAMIDE HCL 2MG CAP TAKE TWO CAPSULES BY MOUTH ONCE A DAY NEEDED FOR DIARRHEA ORAL ACTIVE 07/10/2025 [id number] Pelon PENALOZA 2024 30 [facility] MELATONIN CAP/TAB TAKE BY MOUTH AT BEDTIME NEEDED ORAL ACTIVE CONOR GATES 2024 [facility] MULTIVITAMI NS CAP/TAB TAKE ONE TABLET BY MOUTH ONCE A DAY ORAL ACTIVE CONOR GATES 2024 [facility] NICOTINE POLACRILEX 4MG TAB,CHEWG GUM CHEW 1 PIECE OF GUM BY MOUTH EVERY 4 HOURS NEEDED FOR TOBACCO CESSATIO N CHEW GUM UNTIL TINGLING SENSATIO N, THEN PARK THE GUM BETWEEN CHEEK AND GUM AREA. REPEAT (RE-CHEW ) WHEN TINGLING STOPS. ORAL ACTIVE 10/16/2025 [id number] CONOR GATES 2024 110 [facility] NICOTINE POLACRILEX 4MG TAB,CHEWG GUM CHEW 1 PIECE OF GUM BY MOUTH EVERY 4 HOURS NEEDED FOR TOBACCO CESSATIO N CHEW GUM UNTIL TINGLING SENSATIO N, THEN PARK THE GUM BETWEEN CHEEK AND GUM AREA. REPEAT (RE-CHEW ) WHEN TINGLING STOPS. ORAL DISCONT INUED 10/17/2024 [id number] 5 CONOR GATES 2023 110 [facility] PANTOPRAZOL E NA 40MG TAB,EC TAKE ONE TABLET BY MOUTH EVERY MORNING BEFORE A MEAL FOR GASTROES OPHAGEAL REFLUX DISEASE TAKE 30 MINUTES BEFORE MEAL(S) ORAL 08/12/2024 [id number] MARAL GAITAN RISTOPHER M 2023 90 [facility] Allergies, Adverse Reactions, Alerts Combined list of allergies from Department of Defense and Veterans Affairs facilities. It does not include entries that were removed or entered in error. Substance Category Reaction Severity Reaction type Status Date Reported Comments Source FIRE ANT VENOM Propensity to adverse reaction (finding) Anaphylaxis active 3 [facility] Immunizations Combined list of available immunizations from the Department of Defense and Veterans Affairs facilities. Immunization Series Date Given Administered By Site Reaction Lot Number CVX Code Drug Mica Miner Blasting Status Comments Source COVID-19 (PFIZER), MRNA, LNP-S, PF, PIPPA-SUCROSE, 30 MCG/0.3 ML (AGES 12+ YEARS) 2024 LISA CLARKE H R RIGHT DELTO ID [id number] 309 complet ed [facility] INFLUENZA, SPLIT VIRUS, TRIVALENT, PF 2024 ELOY CLARKEIT H R LEFT DELTO ID [id number] 140 complet ed [facility] PNEUMOCOCCAL POLYSACCHARID E PPV23 2024 VINCEEDIT H R LEFT DELTO ID [id number] 33 complet ed [facility] TDAP 2023 ANAT BHANDARI JAYCE RIGHT DELTO ID [id number] 115 complet ed Booster for Series, [facility] COVID-19 (MODERNA), MRNA, LNP-S, PF, 50 MCG/0.5 ML (AGES 12+ YEARS) 1 2022 FERNANDO GARCIA A L LEFT DELTO ID [id number] 312 complet ed [facility] INFLUENZA, INJECTABLE, QUADRIVALENT, PRESERVATIVE FREE 2022 FERNANDO GARCIA A L RIGHT DELTO ID [id number] A 150 complet ed [facility] INFLUENZA, UNSPECIFIED FORMULATION 2021 88 complet ed HISTORICA L INFORMATI ON - SOURCE [facility]NSPECIFI [facility] COVID-19 (MODERNA), MRNA, LNP-S, PF, 100 MCG/0.5ML DOSE OR 50 MCG/0.25ML DOSE 3 2021 207 complet ed HISTORICA L INFORMATI ON - FROM PATIENT'S WRITTEN RECORD, [facility] COVID-19 (MODERNA), MRNA, LNP-S, PF, 100 MCG/0.5ML DOSE OR 50 MCG/0.25ML DOSE 2 2020 207 complet ed HISTORICA L INFORMATI ON - FROM PATIENT'S WRITTEN RECORD, [facility] COVID-19 (MODERNA), MRNA, LNP-S, PF, 100 MCG/0.5ML DOSE OR 50 MCG/0.25ML DOSE 1 2020 207 complet ed HISTORICA L INFORMATI ON - FROM PATIENT'S WRITTEN RECORD, [facility] Results Combined list of recent chemistry, hematology and other laboratory results from Department of Defense and Veterans Affairs, ranging from 15 months to all on record, depending upon the facility. Order Name Results Value Reference Range Date Interpretation Specimen Comments Source HGA1C HEMOGLOBIN A1C/HEMOGL OBIN.TOTAL IN BLOOD 5.1 4.0 - 6.0 10/21 Specimen Type: BLOOD No comment entered. Ordering Provider: SIMONE GATES Report Released Date/Time: Oct 15, 2024 02:41 PM Reporting Lab: [facility] [address] [facility] [address] Performing Lab: [address] [address] [facility] HIV COMBO FOURTH GENERATI ON (STL) HIV 1+2 AB+HIV1 P24 AG [PRESENCE] IN SERUM OR PLASMA BY IMMUNOASSA Y Nonreact margarita 10/21 Specimen Type: SERUM No comment entered. Ordering Provider: SIMONE GATES Report Released Date/Time: Oct 15, 2024 04:23 PM Reporting Lab: [address] [address] Performing Lab: [address] [address] [facility] HEP C Ab HCV Ab (STL) HEPATITIS C VIRUS AB [PRESENCE] IN SERUM Nonreact margarita 10/21 Specimen Type: SERUM No comment entered. Ordering Provider: SIMONE GATES Report Released Date/Time: Oct 15, 2024 04:23 PM Reporting Lab: [place] [address] [facility] [address] Performing Lab: [address] [address] [facility] HEPATIC FUNTION PANEL (STL) PROTEIN [MASS/VOLU ME] IN SERUM OR PLASMA 7.3 g/dL 6 - 8.6 10/21 Specimen Type: PLASMA No comment entered. Ordering Provider: SAMIR PENALOZA Report Released Date/Time: Oct 21, 2024 08:53 AM Reporting Lab: [facility] [address] Performing Lab: [address] [address] [facility] HEPATIC FUNTION PANEL (STL) ALBUMIN [MASS/VOLU ME] IN SERUM OR PLASMA 4.3 g/dL 3.4 - 5 10/21 Specimen Type: PLASMA No comment entered. Ordering Provider: BUSHONG,SAMIR EPH A Report Released Date/Time: Oct 21, 2024 08:53 AM Reporting Lab: [facility] [address] [facility] [address] Performing Lab: [facility] [address] [address] [facility] HEPATIC FUNTION PANEL (STL) BILIRUBIN. TOTAL [MASS/VOLU ME] IN SERUM OR PLASMA 1.2 mg/dL 0.2 - 1.2 10/21 Specimen Type: PLASMA No comment entered. Ordering Provider: SAMIR PENALOZA A Report Released Date/Time: Oct 21, 2024 08:53 AM Reporting Lab: [place] [address] [facility] [address] Performing Lab: [place] [address] [facility] [address] [facility] HEPATIC FUNTION PANEL (STL) ALKALINE PHOSPHATAS E [ENZYMATIC ACTIVITY/V OLUME] IN SERUM OR PLASMA 98 U/L 40 - 150 10/21 Specimen Type: PLASMA No comment entered. Ordering Provider: SAMIR PENALOZA A Report Released Date/Time: Oct 21, 2024 08:53 AM Reporting Lab: [place] [address] [facility] [address] Performing Lab: [place] [address] [address] [facility] [address] [facility] HEPATIC FUNTION PANEL (STL) ASPARTATE AMINOTRANS FERASE [ENZYMATIC ACTIVITY/V OLUME] IN SERUM OR PLASMA 34 U/L 5 - 34 10/21 Specimen Type: PLASMA No comment entered. Ordering Provider: SAMIR PENALOZA A Report Released Date/Time: Oct 21, 2024 08:53 AM Reporting Lab: [place] [address] [facility] [address] Performing Lab: [place] [address] [facility] [address] [facility] HEPATIC FUNTION PANEL (STL) ALANINE AMINOTRANS FERASE [ENZYMATIC ACTIVITY/V OLUME] IN SERUM OR PLASMA 36 U/L 8 - 40 10/21 Specimen Type: PLASMA No comment entered. Ordering Provider: SAMIR PENALOZA Report Released Date/Time: Oct 21, 2024 08:53 AM Reporting Lab: [place] [address] [facility] [address] Performing Lab: [address] [address] [facility] HEPATIC FUNTION PANEL (STL) BILIRUBIN. CONJUGATED [MASS/VOLU ME] IN SERUM OR PLASMA 0.5 mg/dL 0 - 0.5 10/21 Specimen Type: PLASMA No comment entered. Ordering Provider: SAMIR PENALOZA A Report Released Date/Time: Oct 21, 2024 08:53 AM Reporting Lab: [address] [address] Performing Lab: [address] [address] [facility] LIPID PANEL (STL) CHOLESTERO L [MASS/VOLU ME] IN SERUM OR PLASMA 136 mg/dL 0 - 200 07/23 Specimen Type: PLASMA No comment entered. Ordering Provider: SIMONE GATES Report Released Date/Time: Jul 15, 2024 04:34 PM Reporting Lab: [address] [address] Performing Lab: [address] [address] [facility] LIPID PANEL (STL) TRIGLYCERI DE [MASS/VOLU ME] IN SERUM OR PLASMA 210 mg/dL 0 - 150 07/23 H Specimen Type: PLASMA No comment entered. Ordering Provider: SIMONE GATES Report Released Date/Time: Jul 15, 2024 04:34 PM Reporting Lab: [place] [address] [facility] [address] Performing Lab: [address] [address] [facility] LIPID PANEL (STL) CHOLESTERO L IN LDL [MASS/VOLU ME] IN SERUM OR PLASMA BY CALCBRENNAN N 68 mg/dL 07/23 Specimen Type: PLASMA No comment entered. Ordering Provider: SIMONE GATES Report Released Date/Time: Jul 15, 2024 04:34 PM Reporting Lab: [address] [address] Performing Lab: [address] [address] [facility] LIPID PANEL (STL) CHOLESTERO L IN HDL [MASS/VOLU ME] IN SERUM OR PLASMA 26 mg/dL 40 07/23 L Specimen Type: PLASMA No comment entered. Ordering Provider: SIMONE GATES Report Released Date/Time: Jul 15, 2024 04:34 PM Reporting Lab: [place] [address] Performing Lab: [address] [address] [facility] HEPATIC FUNTION PANEL (STL) PROTEIN [MASS/VOLU ME] IN SERUM OR PLASMA 7.2 g/dL 6 - 8.6 07/23 Specimen Type: PLASMA No comment entered. Ordering Provider: SIMONE GATES Report Released Date/Time: Jul 15, 2024 04:34 PM Reporting Lab: [address] [address] Performing Lab: [address] [address] [facility] HEPATIC FUNTION PANEL (STL) ALBUMIN [MASS/VOLU ME] IN SERUM OR PLASMA 4.0 g/dL 3.4 - 5 07/23 Specimen Type: PLASMA No comment entered. Ordering Provider: SIMONE GATES Report Released Date/Time: Jul 15, 2024 04:34 PM Reporting Lab: [address] [address] Performing Lab: [address] [place] [address] [facility] HEPATIC FUNTION PANEL (STL) BILIRUBIN. TOTAL [MASS/VOLU ME] IN SERUM OR PLASMA 0.5 mg/dL 0.2 - 1.2 07/23 Specimen Type: PLASMA No comment entered. Ordering Provider: SIMONE GATES Report Released Date/Time: Jul 15, 2024 04:34 PM Reporting Lab: [place] [address] Performing Lab: [place] [phone] [facility] [address] [facility] HEPATIC FUNTION PANEL (STL) ALKALINE PHOSPHATAS E [ENZYMATIC ACTIVITY/V OLUME] IN SERUM OR PLASMA 80 U/L 40 - 150 07/23 Specimen Type: PLASMA No comment entered. Ordering Provider: SIMONE GATES Report Released Date/Time: Jul 15, 2024 04:34 PM Reporting Lab: [place] [phone] Performing Lab: [place] [phone] [facility] HEPATIC FUNTION PANEL (STL) ASPARTATE AMINOTRANS FERASE [ENZYMATIC ACTIVITY/V OLUME] IN SERUM OR PLASMA 35 U/L 5 - 34 07/23 H Specimen Type: PLASMA No comment entered. Ordering Provider: SIMONE GATES Report Released Date/Time: Jul 15, 2024 04:34 PM Reporting Lab: [place] [phone] Performing Lab: [address] [phone] [facility] HEPATIC FUNTION PANEL (STL) ALANINE AMINOTRANS FERASE [ENZYMATIC ACTIVITY/V OLUME] IN SERUM OR PLASMA 58 U/L 8 - 40 07/23 H Specimen Type: PLASMA No comment entered. Ordering Provider: SIMONE GATES Report Released Date/Time: Jul 15, 2024 04:34 PM Reporting Lab: [address] [address] Performing Lab: [address] [phone] [place] [address] [facility] HEPATIC FUNTION PANEL (STL) BILIRUBIN. CONJUGATED [MASS/VOLU ME] IN SERUM OR PLASMA 0.2 mg/dL 0 - 0.5 07/23 Specimen Type: PLASMA No comment entered. Ordering Provider: SIMONE GATES Report Released Date/Time: Jul 15, 2024 04:34 PM Reporting Lab: [address] [address] Performing Lab: [address] [phone] [facility] COMPREHE NSIVE METABOLI C PANEL CREATININE [MASS/VOLU ME] IN SERUM OR PLASMA 0.81 mg/dL 0.7 - 1.3 07/14 Specimen Type: PLASMA Comment: LDL calculation invalid when Triglycerid e exceeds 250 mg/dl Ordering Provider: SIMONE GATES Report Released Date/Time: Jul 08, 2024 02:33 PM Reporting Lab: [address] [address] Performing Lab: [address] [phone] [place] [address] [facility] COMPREHE NSIVE METABOLI C PANEL UREA NITROGEN [MASS/VOLU ME] IN SERUM OR PLASMA 15.2 mg/dL 9.0 - 25.0 07/14 Specimen Type: PLASMA Comment: LDL calculation invalid when Triglycerid e exceeds 250 mg/dl Ordering Provider: SIMONE GATES Report Released Date/Time: Jul 08, 2024 02:33 PM Reporting Lab: [address] [address] Performing Lab: [address] [phone] [place] [address] [facility] COMPREHE NSIVE METABOLI C PANEL GLUCOSE [MASS/VOLU ME] IN SERUM OR PLASMA 120 mg/dL 72 - 99 07/14 H Specimen Type: PLASMA Comment: LDL calculation invalid when Triglycerid e exceeds 250 mg/dl Ordering Provider: SIMONE GATES Report Released Date/Time: Jul 08, 2024 02:33 PM Reporting Lab: [facility] [address] [place] [phone] Performing Lab: [facility] [address] [facility] [address] [facility] COMPREHE NSIVE METABOLI C PANEL SODIUM [MOLES/VOL UME] IN SERUM OR PLASMA 141 meq/L 136 - 145 07/14 Specimen Type: PLASMA Comment: LDL calculation invalid when Triglycerid e exceeds 250 mg/dl Ordering Provider: SIMONE GATES Report Released Date/Time: Jul 08, 2024 02:33 PM Reporting Lab: [facility] [address] [place] [phone] Performing Lab: [address] [address] [facility] COMPREHE NSIVE METABOLI C PANEL POTASSIUM [MOLES/VOL UME] IN SERUM OR PLASMA 4.9 meq/L 3.5 - 5 07/14 Specimen Type: PLASMA Comment: LDL calculation invalid when Triglycerid e exceeds 250 mg/dl Ordering Provider: SIMONE GATES Report Released Date/Time: Jul 08, 2024 02:33 PM Reporting Lab: [facility] [address] [place] [phone] Performing Lab: [facility] [address] [place] [phone] [facility] COMPREHE NSIVE METABOLI C PANEL CHLORIDE [MOLES/VOL UME] IN SERUM OR PLASMA 109 meq/L 98 - 107 07/14 H Specimen Type: PLASMA Comment: LDL calculation invalid when Triglycerid e exceeds 250 mg/dl Ordering Provider: SMIONE GATES Report Released Date/Time: Jul 08, 2024 02:33 PM Reporting Lab: [facility] [address] [place] [phone] Performing Lab: [facility] [address] [place] [phone] [facility] COMPREHE NSIVE METABOLI C PANEL CARBON DIOXIDE, TOTAL [MOLES/VOL UME] IN SERUM OR PLASMA 23 meq/L 22 - 31 07/14 Specimen Type: PLASMA Comment: LDL calculation invalid when Triglycerid e exceeds 250 mg/dl Ordering Provider: SIMONE GATES Report Released Date/Time: Jul 08, 2024 02:33 PM Reporting Lab: [address] [address] Performing Lab: [address] [phone] [facility] [address] [facility] COMPREHE NSIVE METABOLI C PANEL CALCIUM [MASS/VOLU ME] IN SERUM OR PLASMA 9.5 mg/dL 8.4 - 10.4 07/14 Specimen Type: PLASMA Comment: LDL calculation invalid when Triglycerid e exceeds 250 mg/dl Ordering Provider: SIMONE GATES Report Released Date/Time: Jul 08, 2024 02:33 PM Reporting Lab: [facility] [address] [place] [phone] Performing Lab: [address] [address] [facility] COMPREHE NSIVE METABOLI C PANEL PROTEIN [MASS/VOLU ME] IN SERUM OR PLASMA 7.6 g/dL 6 - 8.6 07/14 Specimen Type: PLASMA Comment: LDL calculation invalid when Triglycerid e exceeds 250 mg/dl Ordering Provider: SIMONE GATES Report Released Date/Time: Jul 08, 2024 02:33 PM Reporting Lab: [facility] [address] [place] [phone] Performing Lab: [facility] [address] [place] [phone] [facility] COMPREHE NSIVE METABOLI C PANEL ALBUMIN [MASS/VOLU ME] IN SERUM OR PLASMA 4.1 g/dL 3.4 - 5 07/14 Specimen Type: PLASMA Comment: LDL calculation invalid when Triglycerid e exceeds 250 mg/dl Ordering Provider: SIMONE GATES Report Released Date/Time: Jul 08, 2024 02:33 PM Reporting Lab: [facility] [address] [facility] [address] Performing Lab: [place] [address] [facility] [phone] [place] [address] [facility] COMPREHE NSIVE METABOLI C PANEL BILIRUBIN. TOTAL [MASS/VOLU ME] IN SERUM OR PLASMA 0.4 mg/dL 0.2 - 1.2 07/14 Specimen Type: PLASMA Comment: LDL calculation invalid when Triglycerid e exceeds 250 mg/dl Ordering Provider: SIMONE GATES Report Released Date/Time: Jul 08, 2024 02:33 PM Reporting Lab: [address] [address] Performing Lab: [address] [address] [facility] COMPREHE NSIVE METABOLI C PANEL ALKALINE PHOSPHATAS E [ENZYMATIC ACTIVITY/V OLUME] IN SERUM OR PLASMA 90 U/L 40 - 150 07/14 Specimen Type: PLASMA Comment: LDL calculation invalid when Triglycerid e exceeds 250 mg/dl Ordering Provider: SIMONE GATES Report Released Date/Time: Jul 08, 2024 02:33 PM Reporting Lab: [place] [address] [facility] [address] Performing Lab: [place] [address] [facility] [address] [facility] COMPREHE NSIVE METABOLI C PANEL ASPARTATE AMINOTRANS FERASE [ENZYMATIC ACTIVITY/V OLUME] IN SERUM OR PLASMA 35 U/L 5 - 34 07/14 H Specimen Type: PLASMA Comment: LDL calculation invalid when Triglycerid e exceeds 250 mg/dl Ordering Provider: SIMONE GATES Report Released Date/Time: Jul 08, 2024 02:33 PM Reporting Lab: [place] [address] [facility] [id number] Performing Lab: [place] [address] [facility] [id number] [facility] COMPREHE NSIVE METABOLI C PANEL ALANINE AMINOTRANS FERASE [ENZYMATIC ACTIVITY/V OLUME] IN SERUM OR PLASMA 62 U/L 8 - 40 07/14 H Specimen Type: PLASMA Comment: LDL calculation invalid when Triglycerid e exceeds 250 mg/dl Ordering Provider: SIMONE GATES Report Released Date/Time: Jul 08, 2024 02:33 PM Reporting Lab: [place] [address] [facility] [id number] Performing Lab: [place] [address] [place] [id number] [facility] COMPREHE NSIVE METABOLI C PANEL GLOMERULAR FILTRATION RATE/1.73 SQ M.PREDICTE D [VOLUME RATE/AREA] IN SERUM, PLASMA OR BLOOD BY CREATININE -BASED FORMULA (CKD-EPI 2020) 109.4 60 07/14 Specimen Type: PLASMA Comment: LDL calculation invalid when Triglycerid e exceeds 250 mg/dl Ordering Provider: SIMONE GATES Report Released Date/Time: Jul 08, 2024 02:33 PM Reporting Lab: [place] [address] [facility] [address] Performing Lab: [place] [address] [facility] [phone] [facility] CBC LEUKOCYTES [#/VOLUME] IN BLOOD BY AUTOMATED COUNT 9.5 10*3/uL 3.6 - 11.2 07/14 Specimen Type: BLOOD No comment entered. Ordering Provider: SIMONE GATES Report Released Date/Time: Jul 08, 2024 02:33 PM Reporting Lab: [place] [address] [facility] [address] Performing Lab: [place] [address] [facility] [address] [place] [address] [facility] CBC ERYTHROCYT ES [#/VOLUME] IN BLOOD BY AUTOMATED COUNT 4.97 10*6/uL 4.10 - 5.70 07/14 Specimen Type: BLOOD No comment entered. Ordering Provider: SIMONE GATES Report Released Date/Time: Jul 08, 2024 02:33 PM Reporting Lab: [place] [address] [facility] [address] Performing Lab: [facility] [address] [facility] [address] [facility] CBC HEMOGLOBIN [MASS/VOLU ME] IN BLOOD 15.9 g/dL 13.1 - 16.8 07/14 Specimen Type: BLOOD No comment entered. Ordering Provider: SIMONE GATES Report Released Date/Time: Jul 08, 2024 02:33 PM Reporting Lab: [address] [address] Performing Lab: [address] [address] [facility] CBC HEMATOCRIT [VOLUME FRACTION] OF BLOOD 46.1 38.2 - 48.4 07/14 Specimen Type: BLOOD No comment entered. Ordering Provider: SIMONE GATES Report Released Date/Time: Jul 08, 2024 02:33 PM Reporting Lab: [address] [address] Performing Lab: [address] [address] [facility] CBC MCV [ENTITIC VOLUME] BY AUTOMATED COUNT 92.8 fL 80.0 - 100.0 07/14 Specimen Type: BLOOD No comment entered. Ordering Provider: SIMONE GATES Report Released Date/Time: Jul 08, 2024 02:33 PM Reporting Lab: [address] [address] Performing Lab: [address] [address] [facility] CBC MCH [ENTITIC MASS] BY AUTOMATED COUNT 32.0 pg 27.0 - 34.0 07/14 Specimen Type: BLOOD No comment entered. Ordering Provider: SIMONE GATES Report Released Date/Time: Jul 08, 2024 02:33 PM Reporting Lab: [address] [address] Performing Lab: [address] [address] [facility] CBC MCHC [MASS/VOLU ME] BY AUTOMATED COUNT 34.5 g/dL 33.0 - 36.0 07/14 Specimen Type: BLOOD No comment entered. Ordering Provider: SIMONE GATES Report Released Date/Time: Jul 08, 2024 02:33 PM Reporting Lab: [address] [address] Performing Lab: [address] [phone] [place] [address] [facility]OC CBC PLATELETS [#/VOLUME] IN BLOOD BY AUTOMATED COUNT 291 10*3/uL 150 - 400 07/14 Specimen Type: BLOOD No comment entered. Ordering Provider: SIMONE GATES Report Released Date/Time: Jul 08, 2024 02:33 PM Reporting Lab: [address] [address] Performing Lab: [address] [phone] [place] [address] [facility]OC CBC PLATELET MEAN VOLUME [ENTITIC VOLUME] IN BLOOD BY AUTOMATED COUNT 11.1 fL 7.5 - 11.2 07/14 Specimen Type: BLOOD No comment entered. Ordering Provider: SIMONE GATES Report Released Date/Time: Jul 08, 2024 02:33 PM Reporting Lab: [address] [address] Performing Lab: [address] [address] [facility] CBC ERYTHROCYT E DISTRIBUTI ON WIDTH [RATIO] BY AUTOMATED COUNT 11.9 11.8 - 15.1 07/14 Specimen Type: BLOOD No comment entered. Ordering Provider: SIMONE GATES Report Released Date/Time: Jul 08, 2024 02:33 PM Reporting Lab: [address] [address] Performing Lab: [address] [phone] [place] [address] [facility]OC CBC LYMPHOCYTE S/100 LEUKOCYTES IN BLOOD BY AUTOMATED COUNT 23 07/14 Specimen Type: BLOOD No comment entered. Ordering Provider: SIMONE GATES Report Released Date/Time: Jul 08, 2024 02:33 PM Reporting Lab: [facility] [address] [facility] [address] Performing Lab: [facility] [address] [facility] [address] [facility] CBC MONOCYTES/ 100 LEUKOCYTES IN BLOOD BY AUTOMATED COUNT 9 07/14 Specimen Type: BLOOD No comment entered. Ordering Provider: SIMONE GATES Report Released Date/Time: Jul 08, 2024 02:33 PM Reporting Lab: [facility] [address] [facility] [address] Performing Lab: [facility] [address] [facility] [address] [facility] CBC NEUTROPHIL S/100 LEUKOCYTES IN BLOOD BY AUTOMATED COUNT 66 07/14 Specimen Type: BLOOD No comment entered. Ordering Provider: SIMONE GATES Report Released Date/Time: Jul 08, 2024 02:33 PM Reporting Lab: [facility] [address] [facility] [address] Performing Lab: [facility] [address] [facility] [address] [facility] CBC EOSINOPHIL S/100 LEUKOCYTES IN BLOOD BY AUTOMATED COUNT 1 07/14 Specimen Type: BLOOD No comment entered. Ordering Provider: SIMONE GATES Report Released Date/Time: Jul 08, 2024 02:33 PM Reporting Lab: [facility] [address] [facility] [address] Performing Lab: [facility] [address] [facility] [address] [facility] CBC BASOPHILS/ 100 LEUKOCYTES IN BLOOD BY AUTOMATED COUNT 0 07/14 Specimen Type: BLOOD No comment entered. Ordering Provider: SIMONE GATES Report Released Date/Time: Jul 08, 2024 02:33 PM Reporting Lab: [facility] [address] [place] [address] Performing Lab: [facility] [address] [place] [address] [facility] CBC LYMPHOCYTE S [#/VOLUME] IN BLOOD BY AUTOMATED COUNT 2.18 10*3/uL 0.77 - 4.50 07/14 Specimen Type: BLOOD No comment entered. Ordering Provider: SIMONE GATES Report Released Date/Time: Jul 08, 2024 02:33 PM Reporting Lab: [place] [phone] Performing Lab: [place] [phone] [facility] CBC MONOCYTES [#/VOLUME] IN BLOOD BY AUTOMATED COUNT 0.86 10*3/uL 0.19 - 0.80 07/14 H Specimen Type: BLOOD No comment entered. Ordering Provider: SIMONE GATES Report Released Date/Time: Jul 08, 2024 02:33 PM Reporting Lab: [address] [address] Performing Lab: [place] [phone] [facility] CBC NEUTROPHIL S [#/VOLUME] IN BLOOD BY AUTOMATED COUNT 6.27 10*3/uL 2.10 - 8.00 07/14 Specimen Type: BLOOD No comment entered. Ordering Provider: SIMONE GATES Report Released Date/Time: Jul 08, 2024 02:33 PM Reporting Lab: [facility] [address] [place] [phone] Performing Lab: [address] [address] [facility] CBC EOSINOPHIL S [#/VOLUME] IN BLOOD BY AUTOMATED COUNT 0.13 10*3/uL 0.00 - 0.60 07/14 Specimen Type: BLOOD No comment entered. Ordering Provider: SIMONE GATES Report Released Date/Time: Jul 08, 2024 02:33 PM Reporting Lab: [facility] [address] [place] [phone] Performing Lab: [address] [address] [facility] CBC BASOPHILS [#/VOLUME] IN BLOOD BY AUTOMATED COUNT 0.03 10*3/uL 0.00 - 0.20 07/14 Specimen Type: BLOOD No comment entered. Ordering Provider: SIMONE GATES Report Released Date/Time: Jul 08, 2024 02:33 PM Reporting Lab: [address] [address] Performing Lab: [phone] [facility] HGA1C HEMOGLOBIN A1C/HEMOGL OBIN.TOTAL IN BLOOD 5.9 4.0 - 6.0 07/14 Specimen Type: BLOOD No comment entered. Ordering Provider: SIMONE GATES Report Released Date/Time: Jul 08, 2024 02:33 PM Reporting Lab: [address] [address] Performing Lab: [address] [address] [facility] LIPID PANEL (STL) CHOLESTERO L [MASS/VOLU ME] IN SERUM OR PLASMA 146 mg/dL 0 - 200 07/14 Specimen Type: PLASMA Comment: LDL calculation invalid when Triglycerid e exceeds 250 mg/dl Ordering Provider: SIMONE GATES Report Released Date/Time: Jul 08, 2024 02:33 PM Reporting Lab: [facility] [address] [place] [phone] Performing Lab: [address] [address] [facility] LIPID PANEL (STL) TRIGLYCERI DE [MASS/VOLU ME] IN SERUM OR PLASMA 279 mg/dL 0 - 150 07/14 H Specimen Type: PLASMA Comment: LDL calculation invalid when Triglycerid e exceeds 250 mg/dl Ordering Provider: SIMONE GATES Report Released Date/Time: Jul 08, 2024 02:33 PM Reporting Lab: [facility] [address] [facility] [address] Performing Lab: [facility] [address] [place] [phone] [facility] LIPID PANEL (STL) CHOLESTERO L IN LDL [MASS/VOLU ME] IN SERUM OR PLASMA BY DIRECT ASSAY 82 mg/dL 100 07/14 L Specimen Type: PLASMA Comment: LDL calculation invalid when Triglycerid e exceeds 250 mg/dl Ordering Provider: SIMONE GATES Report Released Date/Time: Jul 08, 2024 02:33 PM Reporting Lab: [address] [address] Performing Lab: [address] [address] [facility] LIPID PANEL (STL) CHOLESTERO L IN LDL [MASS/VOLU ME] IN SERUM OR PLASMA BY CALCULATIO N commentm g/dL 07/14 Specimen Type: PLASMA Comment: LDL calculation invalid when Triglycerid e exceeds 250 mg/dl Ordering Provider: SIMONE GATES Report Released Date/Time: Jul 08, 2024 02:33 PM Reporting Lab: [facility] [address] [place] [phone] Performing Lab: [place] [address] [facility] [address] [facility] LIPID PANEL (STL) CHOLESTERO L IN HDL [MASS/VOLU ME] IN SERUM OR PLASMA 25 mg/dL 40 07/14 L Specimen Type: PLASMA Comment: LDL calculation invalid when Triglycerid e exceeds 250 mg/dl Ordering Provider: SIMONE GATES Report Released Date/Time: Jul 08, 2024 02:33 PM Reporting Lab: [facility] [address] [place] [phone] Performing Lab: [facility] [address] [facility] [address] [facility] Vital Signs Combined list of inpatient and outpatient Vital Signs from Department of Defense and Veterans Affairs, ranging from 12 months to all on record, depending upon the facility. Vital Sign Value Date Comments Source WEIGHT 253.5 12/31/2024 14:45:35 [facility] BMI 33 kg/m2 12/31/2024 14:45:35 [facility] SYSTOLIC BLOOD PRESSURE 111 10/21/2024 08:25:37 [facility] DIASTOLIC BLOOD PRESSURE 69 10/21/2024 08:25:37 [facility] PULSE OXIMETRY 96 10/21/2024 08:25:37 [facility] [place] [facility] WEIGHT 285.5 10/21/2024 08:25:37 [facility] BMI 37 kg/m2 10/21/2024 08:25:37 [facility] PAIN 8 10/21/2024 08:25:37 [facility] TEMPERATURE 96.8 10/21/2024 08:25:37 [facility] PULSE 73 10/21/2024 08:25:37 [facility] RESPIRATION 18 10/21/2024 08:25:37 [facility] SYSTOLIC BLOOD PRESSURE 118 10/15/2024 14:01:48 [facility] DIASTOLIC BLOOD PRESSURE 72 10/15/2024 14:01:48 [facility] PULSE OXIMETRY 73 10/15/2024 14:01:48 [place] [facility] WEIGHT 300.2 10/15/2024 14:01:48 [facility] BMI 39 kg/m2 10/15/2024 14:01:48 [facility] PAIN 4 10/15/2024 14:01:48 [facility] TEMPERATURE 98 10/15/2024 14:01:48 [facility] PULSE 73 10/15/2024 14:01:48 [facility] RESPIRATION 18 10/15/2024 14:01:48 . [facility] WEIGHT 293.6 10/14/2024 16:25:09 [facility] BMI 38 kg/m2 10/14/2024 16:25:09 [facility] SYSTOLIC BLOOD PRESSURE 129 07/08/2024 14:13:04 . [facility] DIASTOLIC BLOOD PRESSURE 82 07/08/2024 14:13:04 . [facility] PULSE OXIMETRY 94 07/08/2024 14:13:04 S . [facility] WEIGHT 348 07/08/2024 14:13:04 [facility] BMI 45 kg/m2 07/08/2024 14:13:04 [facility] PAIN 5 07/08/2024 14:13:04 Merlin Wheat [facility] TEMPERATURE 97.9 07/08/2024 14:13:04 . [facility] PULSE 87 07/08/2024 14:13:04 [facility] RESPIRATION 20 07/08/2024 14:13:04 [facility] Encounters Combined list of: 1) Encounters from Department of Veterans Affairs facilities going backup to the last 18 months, not all VA inpatient encounters are included; 2) Encounters from the Department of Defense facilities going backup to 280 months. Location Location Details Encounter Type Encounter Number Reason For Visit Attending Provider ADM Date DC Date Status Disposition Source Theater Facility OUTPATIENT [id number] 07/10 Released w/o Limitations [facility] OUTPATIENT [id number] 07/14 Released w/o Limitations [facility] OUTPATIENT [id number] 11/27 Released with Work/Duty Limitations [facility] OUTPATIENT [id number] 01/08 Released w/o Limitations Theater Facilit y [facility] Outpatient Encounter [id number] 08/09 [facility] Outpatient Encounter [id number] 08/09 [facility] Outpatient Encounter [id number] 08/12 [facility] Encounter [id number] ARIA BLOUNT 08/12 [facility] Outpatient Encounter [id number] Leanne HOANG 08/12 [facility] EGD BIOPSY SINGLE/MUL TIPLE [id number] Diagnos is: ICD-10- CM K21.9 Gastro- esophag eal reflux disease without esophag itis JANEL ANDERSON 08/12 [facility] Outpatient Encounter [id number] 08/12 [facility] OFFICE O/P EST LOW 20 MIN [id number] Diagnos is: ICD-10- CM Z01.818 Encount er for other preproc edural examina Leanne Singleton 08/12 [facility] Outpatient Encounter [id number] NADER TYLER 08/12 [facility] Outpatient Encounter [id number] EDITH KNOX 08/14 [facility] Outpatient Encounter [id number] 08/15 [facility] Outpatient Encounter [id number] 10/14 [facility] OFFICE O/P EST LOW 20 MIN [id number] Diagnos is: ICD-10- CM I10 Essenti al (primar y) hyperte Caty Cruz 10/16 [facility] OFFICE O/P EST LOW 20 MIN [id number] Diagnos is: ICD-10- CM K21.9 Gastro- esophag eal reflux disease without esophag itis WILBERLATRICE KEY Girma 10/22 [facility] SELF-MGMT EDUC & TRA[place] 1 [place] [id number] Diagnos is: ICD-10- CM G47.33 Obstruc tive sleep apnea (adult) ([facility]) JESSICA ROCHA 02/04 [facility] SELF-MGMT EDUC & TRA[place] 1 [place] [id number] Diagnos is: ICD-10- CM G47.33 Obstruc tive sleep apnea (adult) ([facility]) JESSICA ROCHA 02/09 [facility] OFFICE O/P EST MOD 30 MIN [id number] Diagnos is: ICD-10- CM K21.9 Gastro- esophag eal reflux disease without esophag itis MONICA PENALOZA 04/22 [facility] Outpatient Encounter [id number] YUMIKO BHANDARI 07/06 [facility] OFFICE O/P EST MOD 30 MIN [id number] Diagnos is: ICD-10- CM I10 Essenti al (primar y) mariane Caty Cruz 07/08 [facility] Outpatient Encounter [id number] 07/13 [facility] N [facility] Outpatient Encounter [id number] 07/14 [facility] Outpatient Encounter [id number] 07/23 [facility] N [facility] Outpatient Encounter [id number] YUMIKO BHANDARI KELSIN 09/14 [facility] Outpatient Encounter [id number] ELISABETJOHNAlysia MYESHAOLYN 09/14 [facility] Outpatient Encounter [id number] ROLANDA BROWN 10/12 [facility] Outpatient Encounter [id number] YUMIKO BHANDARI NDOLYN 10/12 [facility] Outpatient Encounter [id number] YUMIKO BHANDARI MYESHAOLYRenetta 10/12 [facility] PSYTX W PT 30 MINUTES [id number] Diagnos is: ICD-10- CM Z63.0 Problem s in relatio nship with spouse or partner Renato HOANG 10/15 [facility] OFFICE O/P EST LOW 20 MIN [id number] Diagnos is: ICD-10- CM I10 Essenti al (primar y) hyperte nsion Caty [facility] 10/15 [facility] PSYTX W PT 30 MINUTES [id number] Diagnos is: ICD-10- CM F41.1 General ized anxiety disordRenato Sanders 10/19 [facility] Outpatient Encounter [id number] 10/21 [facility] OFFICE O/P EST LOW 20 MIN [id number] Diagnos is: ICD-10- CM K21.9 Gastro- esophag eal reflux disease without esophag melissais MONICA PENALOZA 10/21 [facility] [place] [id number] Diagnos is: ICD-10- CM E66.812 Obesity , class 2 SAULSBERYROLANDA D 10/21 [facility] Outpatient Encounter [id number] YUMIKO BHANDARI 10/22 [facility] Outpatient Encounter [id number] 10/27 [facility] Outpatient Encounter [id number] 10/27 [facility] PSYTX W PT 30 MINUTES [id number] Diagnos is: ICD-10- CM F41.1 General ized anxiety Renato Hilton 10/29 [facility] Outpatient Encounter [id number] 10/29 [facility] Outpatient Encounter [id number] 11/03 [facility] PSYTX W PT 30 MINUTES [id number] Diagnos is: ICD-10- CM F41.1 General ized anxiety disorde Renato Cope 11/17 [facility] Outpatient Encounter [id number] YUMIKO BHANDARI 11/24 [facility] Outpatient Encounter [id number] Renato HOANG 11/25 [facility] Outpatient Encounter [id number] Renato HOANG 11/25 [facility] Outpatient Encounter [id number] YUMIKO BHANDARI 11/26 [facility] Outpatient Encounter [id number] YUMIKO BHANDARI 11/27 [facility] Outpatient Encounter [id number] TESSIE JADE 12/03 [facility] Outpatient Encounter [id number] [id number] 12/04 [facility] SYNCH AUDIO-ONLY EST SF 10 [id number] Diagnos is: ICD-10- CM M25.511 Pain in right shoulde r KIM GAITAN 12/08 [facility] Outpatient Encounter [id number] 12/09 [facility] Outpatient Encounter [id number] YUMIKO BHANDARI NDOLYN 12/11 [facility] ASS[facility]&MGMT NQHP 5-10 [id number] Diagnos is: ICD-10- CM I10 Essenti al (primar y) hyperte nsion YUMIKO BHANDARI NDOLYN 12/11 [facility] NUTRITION INDIV SUBSEQ [id number] Diagnos is: ICD-10- CM E66.811 Obesity , class 1 ASHLEE BROWNA D 12/31 [facility] Outpatient Encounter [id number] SACOLEEN ROLANDA D 01/04 [facility] Outpatient Encounter [id number] 01/04 [facility] N Procedures Combined list of: 1) Procedures from Department of [facility] Affairs facilities going back up to thelast 18 months, not all VA non-surgical procedures are included; 2) All procedures from the Department of Defense facilities. Procedure Procedure Type Code Date Perfomer Comments Sourc e PURE TONE AUDIOMETRY (THRESHOLD); AIR ONLY 10/24/2000 [facility] VISUAL FIELD EXAMINATION, UN I OR BILATERAL, WITH MEDICAL DIAGNOSTIC EVAL; LIMITED EXAM (EG, TANGENT SCREEN, AUTOPLOT, ARC PERIMETER, OR SINGLE STIMULUS LEVEL AUTO TEST, EG OCTOPUS 3 OR 7 EQUIVALENT) 10/23/2000 DoD GONIOSCOPY (SEPARATE PROCEDURE) 07/17/2000 DoD GONIOSCOPY (SEPARATE PROCEDURE) 07/03/2000 DoD FITTING OF SPECTACLES, EXCEP T FOR APHAKIA; BIFOCAL 06/28/2000 DoD GONIOSCOPY (SEPARATE PROCEDURE) 06/27/2000 DoD Social History Combined list of available smoking, tobacco, and other social history from Department of Defense and Veterans Affairs facilities. Social History Type Response Date Comment Sourc e Tobacco smoking status NHIS VA-TOBACCO USE FORMER CIGARETTES 10/15/2024 [facility] History of tobacco use VA-TOBACCO NEVER USED OTHER TYPE 10/15/2024 [facility] History of tobacco use VA-TOBACCO NEVER USED 10/17/2023 [facility] History of tobacco use VA-TOBACCO USER EVERY DAY [facility] This section is an empty social history section. DoD Plan of Care List of future care activities from Department of Veterans Affairs facilities. Additional future care activities may be listed in the Assessment and Plan section. Date/Time Care Activity Care Activity Detail Facili ty 02/02/2025 AMBULATORY - NONE AMBULATORY - NONE [facility]
--- OUTSIDE RECORDS SUMMARY | 2025-01-31 15:29 | XMS_ITS | Encounter Summary ---
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 Date/Time Encounter Type Encounter Description Reason Provider Source Oct 19, 2024 03:00 PM PSYTX W PT 30 MINUTES PCMHI INDIV ICD-10-CM F41.1 Generalized anxiety disorder TAYLOR HOANG Alysia Encounter Template Text not used by [facility] Assessments - Encounter Diagnoses This section includes the primary and secondary diagnoses documented for the Encounter. Date/Time Primary/Secondary Diagnosis Diagnosis Name Provider Source November 25, 2024 06:42 PM PRIMARY Generalized anxiety disorder TAYLOR HOANG [facility] Plan of Treatment: Future Appointments (+ 6 months) and Future Tests (+/- 45 days) The Plan of Treatment section includes future care activities for the patient from all [place] [facility] This section includes future appointments and future orders which are active, pending or scheduled. Future Appointments This section includes appointments that were scheduled to occur 6 months from the date of the Encounter, up to a maximum of 20 appointments. The data comes from all [place] treatment [facility]. Appointment Date/Time Appointment Type Appointme nt Facility Name Oct 21, 2024 08:40 AM AMBULATORY - MEDICINE [facility] Oct 21, 2024 02:00 PM AMBULATORY - NONE [facility] October 29, 2024 09:30 AM AMBULATORY - MEDICINE [facility] November 17, 2024 11:00 AM AMBULATORY MEDICINE [facility] Dec 04, 2024 07:30 AM AMBULATORY [facility] Dec 11, 2024 10:00 AM AMBULATORY - MEDICINE [facility] Dec 31, 2024 02:00 PM AMBULATORY - NONE [facility] Apr 14, 2025 03:00 PM AMBULATORY - MEDICINE [facility] Active, Pending, and Scheduled Orders This section includes a listing of several types of active, pending, and scheduled orders, including clinic medications orders, diagnostic test orders, procedure orders and consult orders; where the start date of the order is 45 days before the date of the Encounter or 45 days after the date of theEncounter. The data comes from all [facility]. Test Date/Time Test Type Test Details Facility Name Oct 16, 2024 11:54 AM Consult Order [facility] Cons Administrative Volunteer's Choice [facility] Lab Results: +/- 30 days of the encounter This section includes the Chemistry and Hematology Lab Results on record with [place] for the patient. Radiology Reports and Pathology Reports are provided separately, in subsequent sections. Lab Results This section contains the Chemistry/Hematology Results that were resulted 30 days before or 30 daysafter the date of the Encounter. Date/Time Source Result Type Result - Unit Interpretation Reference Range Specimen Type Comment Oct 21, 2024 09:19 AM [facility] HGA1C BLOOD Specimen Type: BLOOD No comment entered. Ordering Provider: CONOR GATES Report Released Date/Time: Oct 15, 2024 02:41 PM Reporting Lab: [facility] [address] [address] Performing Lab: [facility] [address] [place] [id number] HGA1C 5.1 4.0-6.0 Oct 21, 2024 09:19 AM [facility] HIV COMBO FOURTH GENERATION (STL) SERUM Speci men Type: SERUM No comment entered. Ordering Provider: CONOR GATES Report Released Date/Time: Oct 15, 2024 04:23 PM Reporting Lab: [facility] [address] [place] [phone] Performing Lab: [address] [address] HIV COMBO FOURTH GENERATION (STL) Nonreactive Nonreactive Oct 21, 2024 09:19 AM [facility] HEP C Ab HCV Ab (STL) SERUM Specime n Type: SERUM No comment entered. Ordering Provider: CONOR GATES Report Released Date/Time: Oct 15, 2024 04:23 PM Reporting Lab: [address] [address] Performing Lab: [address] [address] HEP C Ab HCV Ab (STL) Nonreactive Nonrea ctive Oct 21, 2024 09:18 AM [facility] HEPATIC FUNTION PANEL (STL) PLASMA Specimen Ty pe: PLASMA No comment entered. Ordering Provider: EVETTE PENALOZA Report Released Date/Time: Oct 21, 2024 08:53 AM Reporting Lab: [place] [address] [address] Performing Lab: [address] [address] PROTEIN 7.3 g/dL 6-8.6 ALBUMIN 4.3 g/dL 3.4-5 TOTAL BILIRUBIN 1.2 mg/dL 0.2-1.2 ALKALINE PHOSPHATASE 98 U/L 40-150 AST/SGOT 34 U/L 5-34 ALT/SGPT 36 U/L 8-40 CONJ. BILIRUBIN 0.5 mg/dL 0-0.5 Social History: Smoking Status (Most current) and Tobacco Use (All prior to encounter date) This section includes the most current, and the historical, smoking and tobacco- related health factors from the [place] facility where the Encounter took place. Current Smoking Status This section includes the most current smoking, or tobacco-related health factor, from the [place] facility where the Encounter took place. Date/Time Current Smoking Status Comment Facil ity Oct 15, 2024 02:00 PM VA-TOBACCO USE FORMER CIGARETTES [facility] Tobacco Use History This section includes a history of the smoking, or tobacco-related health factors, that were collected on or before the date of the Encounter. The data comes from the [place] facility where the Encounter took place. Date/Time Smoking Status/Tobacco Use Comment F acility Oct 15, 2024 02:00 PM VA-TOBACCO USE FOR SUKUMAR CIGARETTES [facility] Oct 17, 2023 01:30 PM VA-TOBACCO NEVER USED [facility] Oct 18, 2022 01:00 PM VA-TOBACCO USE > 1 5 LESS THAN 30 YEARS [facility] Oct 18, 2022 01:00 PM VA-TOBACCO USE ADVICE [facility] Oct 18, 2022 01:00 PM VA-TOBACCO USE GUEST EXPERIENCE SPECIALIST NO [facility] Oct 18, 2022 01:00 PM VA-TOBACCO USE MED NOTIFY PROVIDER CONOR NARVAEZ [facility] Oct 18, 2022 01:00 PM VA-TOBACCO USE WI 30 MIN OF WAKEUP [facility] Oct 18, 2022 01:00 PM VA-TOBACCO USER EVERY DAY [facility] Radiology Reports: +/- 30 days of the [...] the Encounter. The data comes from all [place] treatment facilities. Date/Time Radiology Report Provider Source Oct 21, 2024 09:03 AM SHOULDER,RIGHT,2 O R MORE VIEWS: DONOVAN ALEXANDER [id number] -1975 M Exm Date: OCT 21, 2024@09:03 Req Phys: CONOR GATES Pat Loc: [facility] 7 PCP (Req'g Loc[place] [facility] [place] Loc: [facility] RADIOLOGY SUITE Service: Unknown [address] [address] (Case [id number] COMPLETE) SHOULDER,RIGHT,2 OR MORE VIEWS (RAD Detailed) CPT:10151 Proc Modifiers : RIGHT Reason for Study: acute right shoulder pain Clinical History: Report Status: Verified Date Reported: OCT 21, 2024 Date Verified: OCT 21, 2024 Director Medical Science E-Sig:/ES/DARIUS SANCHEZ Report: EXAMINATION: SHOULDER,RIGHT,2 OR MORE [...] symptoms. Primary Interpreting Staff: DARIUS SANCHEZ, RADIOLOGIST (Director Medical Science) /DARIUS LYNN [facility] Oct 21, 2024 09:03 AM ELBOW,RIGHT,3+VIEW S: DONOVAN ALEXANDER [id number] -1975 M Exm Date: OCT 21, 2024@09:03 Req Phys: CONOR GATES Loc: [facility] PACT 7 PCP (Req'g Loc) Im Loc: [facility] RADIOLOGY SUITE Service: Unknown [address] [address] (Case [id number] COMPLETE) ELBOW,RIGHT,3+VIEWS (RAD Detailed) CPT:77268 Proc Modifiers : RIGHT Reason for Study: chronic elbow pain Clinical History: Report Status: Verified Date Reported: OCT 22, 2024 Date Verified: OCT 22, 2024 Director Medical Science E-Sig:/ES/AUDIE JENNINGS Report: Case [id number]. ELBOW,RIGHT,3+VIEWS. Comparison: None Findings: There is no evidence of fracture or dislocation. No bone destruction is present. 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 Small elbow joint effusion is noted. Impression: No acute fracture or dislocation. Osteoarthritic changes with small elbow joint effusion. Primary Interpreting Staff: AUDIE JENNINGS MD (Director Medical Science) /AUDIE SOLANO [facility] Oct 21, 2024 09:03 AM ELBOW,LEFT, 3+VIEW S: DONOVAN ALEXANDERI [id number] -1975 M Exm Date: OCT 21, 2024@09:03 Req Phys: CONOR GATES Loc: -[place] PACT 7 PCP (Req'g Loc) [facility] [place] Loc: [facility] RADIOLOGY SUITE Service: Unknown [address] [address] (Case [id number] COMPLETE) ELBOW,LEFT, 3+VIEWS (RAD Detailed) CPT:04492 Proc Modifiers : LEFT Reason for Study: chronic elbow pain Clinical History: Report Status: Verified Date Reported: OCT 22, 2024 Date Verified: OCT 22, 2024 Director Medical Science E-Sig:/ES/AUDIE JENNINGS Report: Case [id number]. ELBOW,LEFT, 3+VIEWS. Comparison: None Findings: There is no evidence of fracture or dislocation. No bone destruction is present. Osteoarthritic changes are noted with osteophyte formation between the capitellum and the trochlea. Small elbow joint effusion is noted. Impression: Mild osteoarthritic changes with small joint effusion. Primary Interpreting Staff: AUDIE JENNINGS MD (Director Medical Science) /AUDIE SOLANO [facility] Oct 21, 2024 09:02 AM CHEST X-RAY, 2 VIE WS: DONOVAN ALEXANDER MITA [id number] -1975 M Exm Date: OCT 21, 2024@09:02 Req Phys: EVETTE PENALOZA Loc: [facility] (Req'g Loc) Im Loc: [facility] RADIOLOGY SUITE Service: Unknown [address] [address] (Case [id number] COMPLETE) CHEST X-RAY, 2 VIEWS (RAD Detailed) CPT:06953 Proc Modifiers : Insp / Exp Reason for Study: chest pain Clinical History: xiphoialgia Report Status: Verified Date Reported: OCT 21, 2024 Date Verified: OCT 21, 2024 Director Medical Science E-Sig:/ES/DARIUS SANCHEZ Report: EXAMINATION: CHEST X-RAY, 2 VIEWS DATE: 10/21/2024 9:02 AM HISTORY: chest pain. COMPARISON: None. VIEWS: PA and lateral FINDINGS: Heart size is normal. Lungs are clear. No pleural effusion. Impression: No active disease. Primary Interpreting Staff: DARIUS SANCHEZ, RADIOLOGIST ([place]) /[facility] Encounter Notes: All associated encounter notes This section contains the clinical notes associated to the Encounter. Date/Time Encounter Note(s) Provider Source Oct 19, 2024 09:35 AM PSYCHOLOGY INITIAL EVALUATION NOTE: LOCAL TITLE: PRIMARY CARE PSYCHOLOGY INITIAL NOTE [facility] STANDARD TITLE: PSYCHOLOGY INITIAL EVALUATION NOTE DATE OF NOTE: OCT 19, 2024@09:35 ENTRY DATE: OCT 19, 2024@09:35:08 AUTHOR: TAYLOR HOANG EXP COSIGNER: URGENCY: STATUS: COMPLETED NAME: DONOVAN ALEXANDER SSN: [id number] DATE OF : Dec TIME SPENT WITH PATIENT: 30 minutes DIAGNOSIS TREATED: Generalized Anxiety Disorder CPT Code: 56836 SERVICE CONNECTION: Service Connected: 70% Rated Disabilities: TINNITUS (10% SC) IMPAIRED HEARING (0% SC) FLAT FOOT CONDITION (50% SC) LIMITED MOTION OF ANKLE (10% SC) LUMBOSACRAL OR CERVICAL STRAIN (10% SC) NATURE OF ENCOUNTER: Scheduled Intake REASON FOR REFERRAL: The was referred to Primary Care Psychology for a brief behavioral health assessment to address issues related to: Service Connected: 70% Rated Disabilities: TINNITUS (10% SC) IMPAIRED HEARING (0% SC) FLAT FOOT CONDITION (50% SC) LIMITED MOTION OF ANKLE (10% SC) LUMBOSACRAL OR CERVICAL STRAIN (10% SC) PROCEDURES: Brief Clinical Interview. was informed of the limits of confidentiality, as well as the potential risk, benefits, and complications of participating in treatment. The /guardian expressed understanding and consented to participate in services. RELEVANT HISTORY/PRESENTING CONCERN: Patient is a 49 y/o . - CC: Ananda expressed extreme anxiety in the context of significant lifestyle changes. - psychosocial: Ananda lives with his and 2 daughters (12 and 8) and 1 dog. 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 Mental Health History: Denies prior inpatient hospitalizations. Denies any current psychotropic tx. Reports therapy as a child but doesn't recall why. Would assume it could have been related to ADHD, I was high strung dude but doesn't recall taking meds at all. Denies any previous counseling or psychotherapy. Family mental health history: daughter with ADHH, maternal grandfather completed suicide ([employer]); family history of Dementia but unsure of who. Relevant Medical History: ananda has had both ankles rebuilt x2; REINALDO; hypertension; Cultural Dynamics: Ananda reported he is Methodist. Ananda is attracted to women only. Ananda describes his childhood intense. SYMPTOMS [rated on a scale from 1-10 with 10=perfect/1= extreme impairment]: Sleep: (uses CPAP machine, but as of recently it's not working as well). 8, but the past 2 weeks he hasn't been able to sleep. Interest: 5/4 bc I now avoid people bc I'm on edge all the time and raging. Energy: 10 Concentration: 4 Appetite: 5/6- while dieting Psychomotor: wnl Mood: raging, just going, going, and going. and Needy Guilt: Endorsed HEALTH FACTORS: - ETOH use: stopped 6 weeks ago. - Substance use: denied - Tobacco use: stopped smoking in Aug, will rarely on occasion have a cigar. - Caffeine use: coffee in the a.m. - BMI: 38.6 - Most Recent HGA1C 5.9 % 07/14/2024 09:20 BEHAVIORAL OBSERVATIONS/MENTAL STATUS: - Affect: intense - Thought: logical & linear - Hallucination: none reported or observed - Delusions: none reported or observed - Judgment/Insight: good, good - Orientation: x 3 Risk Assessment- Vet denied any homicidal ideations, urges, or intent. Suicidal ideation present? No. This provider asked more questions about his positive #9. does have thoughts that people would be better off without him, bc of his pissing people off but does not want to kill himself. History of suicide attempts? (include description and year if known) No Family history of suicide? Yes- grandfather (maternal) OEF/OIF ? Yes, 2004 Has reported any significant clinical or psychosocial changes in the past 90 days? None reported. ACUTE RISK FACTORS: None identified. FIREARMS AVAILABILITY: yes, they are locked and secured. They have gun safes and locks. MEDICATIONS: Date: Oct 19, 2024 PATIENT MEDICATION INFORMATION Page: 1 PRINTED BY THE [facility] AT: [facility] FOR PRESCRIPTION REFILLS CALL Name: DONOVAN ALEXANDER - [facility] ([facility]) MORNING NOON EVENING BEDTIME COMMENTS ~~~~~~~~~~~~~~~~~~~~~~~~~~~~~~~ ~~~~~~~~~~~~~~~~~~~~~~~~~~~~~~~~ ~~~~~~~~~~ ATORVASTATIN CALCIUM 40MG TAB TAKE ONE-HALF TABLET BY MOUTH EVERY EVENING FOR HIGH CHOLESTEROL 3 refill(s) remaining prior to Oct 16, 2025 (Rx #[id number]) UNITS PER DOSE: ~~~~~~~~~~~~~~~~~~~~~~~~~~~~~~~ ~~~~~~~~~~~~~~~~~~~~~~~~~~~~~~~~ ~~~~~~~~~~ CALCIUM POLYCARBOPHIL 625MG TAB TAKE TWO TABLETS BY MOUTH ONCE A DAY 0 refill(s) remaining prior to Apr 23, 2025 (Rx #[id number]) UNITS PER DOSE: ~~~~~~~~~~~~~~~~~~~~~~~~~~~~~~~ ~~~~~~~~~~~~~~~~~~~~~~~~~~~~~~~~ ~~~~~~~~~~ EPI(EQV-ADRENACLICK)0.3MG/0.3ML INJCTR INJECT 1 PEN (0.3MG/0.3ML) INTRAMUSCULARLY ONE-TIME 0 refill(s) remaining prior to Dec 15, 2024 (Rx #[id number]) UNITS PER DOSE: ~~~~~~~~~~~~~~~~~~~~~~~~~~~~~~~ ~~~~~~~~~~~~~~~~~~~~~~~~~~~~~~~~ ~~~~~~~~~~ IRBESARTAN 75MG TAB TAKE ONE TABLET BY MOUTH ONCE A DAY FOR HIGH BLOOD PRESSURE 3 refill(s) remaining prior to Oct 16, 2025 (Rx #[id number]) UNITS PER DOSE: ~~~~~~~~~~~~~~~~~~~~~~~~~~~~~~~ ~~~~~~~~~~~~~~~~~~~~~~~~~~~~~~~~ ~~~~~~~~~~ LOPERAMIDE HCL 2MG CAP TAKE TWO CAPSULES BY MOUTH ONCE A DAY NEEDED FOR DIARRHEA 0 refill(s) remaining prior to Jul 10, 2025 (Rx #[id number]) UNITS PER DOSE: ~~~~~~~~~~~~~~~~~~~~~~~~~~~~~~~ ~~~~~~~~~~~~~~~~~~~~~~~~~~~~~~~~ ~~~~~~~~~~ NICOTINE 4MG GUM CHEW 1 PIECE OF GUM BY MOUTH EVERY 4 HOURS NEEDED FOR TOBACCO CESSATION CHEW GUM UNTIL TINGLING SENSATION, THEN PARK THE GUM BETWEEN CHEEK AND GUM AREA. REPEAT (RE-CHEW) WHEN TINGLING STOPS. 3 refill(s) remaining prior to Oct 16, 2025 (Rx #[id number]) UNITS PER DOSE: ~~~~~~~~~~~~~~~~~~~~~~~~~~~~~~~ ~~~~~~~~~~~~~~~~~~~~~~~~~~~~~~~~ ~~~~~~~~~~ NON-VA ASCORBIC ACID TAB TAKE BY MOUTH ONCE A DAY UNITS PER DOSE: ~~~~~~~~~~~~~~~~~~~~~~~~~~~~~~~ ~~~~~~~~~~~~~~~~~~~~~~~~~~~~~~~~ ~~~~~~~~~~ Date: Oct 19, 2024 PATIENT MEDICATION INFORMATION Page: 2 PRINTED BY THE [facility] AT: [facility] FOR PRESCRIPTION REFILLS CALL Name: DONOVAN ALEXANDER - [facility] ([facility]) MORNING NOON EVENING BEDTIME COMMENTS ~~~~~~~~~~~~~~~~~~~~~~~~~~~~~~~ ~~~~~~~~~~~~~~~~~~~~~~~~~~~~~~~~ ~~~~~~~~~~ NON-VA MELATONIN CAP/TAB TAKE BY MOUTH AT BEDTIME NEEDED UNITS PER DOSE: ~~~~~~~~~~~~~~~~~~~~~~~~~~~~~~~ ~~~~~~~~~~~~~~~~~~~~~~~~~~~~~~~~ ~~~~~~~~~~ NON-VA MULTIVITAMIN CAP/TAB TAKE ONE TABLET BY MOUTH ONCE A DAY UNITS PER DOSE: Any medication items listed as pending are those that have just been written by your provider(s). These medication orders will be reviewed by your pharmacist, prior to the prescription(s) being dispensed. When you receive your new prescription(s), by mail or from the pharmacy window, be sure to follow the instructions on the prescription label. If you have any question about your medication, please call your provider or your pharmacist. Any medication items listed as NON-VA are Medications you do not get from a VA pharmacy that your provider recorded in your medical record. This includes medication prescribed by VA or non-VA providers, over the counter medications, herbals, samples or other medications you take. MITIGATING FACTORS: Ethical, evangelical beliefs Hopes and plans for future Beliefs for continued living Explicit reasons for living ESTIMATED RISK LEVEL: Low/minimal evidence of imminent risk: has no history of SI/HI and does not appear to be in eminent danger to self or others. INITIAL INTERVENTION: Worked on building trust and rapport, assessment and treatment planning. Discussed mental health treatment options at this [facility]. Identified treatment goals: decrease anxiety and the feelings of raging and being clingy with my . IMPRESSIONS: [place] is a /single 49-year old MALE, who presents with symptoms of feeling high strung and intense anxiety. Vet further added I'm clingy, can't get away from her [], I'm an emotional train wreck. I walk 5 miles a day, and jutizu to wear myself out bc I wake up 0430 and I go to bed at midnight. I'm raging all day long, I feel like I'm 22 years old and going buzurk- my is a Saint. Used motivational interviewing to discuss readiness for change. Provided psychoeducation about the impact of depression upon thoughts and behaviors. Introduced behavioral activation. SAFETY/CARE PLAN: Discussed/Reviewed medication compliance Identification and management of stressors/triggers discussed Suicide Prevention Hotline card provided ( ) Discussed availability of 911 and 24 hour Emergency Room (at [place] or elsewhere) Engaged [place] in shared decision making when creating the following initial treatment plan: - Pt will begin time-limited individual therapy with this provider. Pt scheduled for follow-up in 2-4 wks. Vet is to reach out to his sleep provider to inquire if his settings need to be decreased? or have them to review his current data. Vet is also to ask for a 30 day report for this provider. Vet to start diaphragmatic breathing before bed and when he awakens. Vet to schedule a phone appt to discuss with provider questions around testosterone and medication to address high anxiety. - Will introduce CBT and collaboratively identify treatment goals. - Pt expressed interest in psychotropic tx options. Will discuss management of these sx in PC setting with PCP. - Discussed referral for psychopharmacotherapy intervention. - Provided with quality analyst/technical writer's contact information and Veterans Crisis Number. Also informed about the services provided by Primary Care Psychology. is aware more specific treatment goals/recommendations for care with this provider will be discussed collaboratively with [place] at follow-up session, scheduled for this providers next available. /stacy/ Taylor Hoang Psy.D. Staff Psychologist Signed: 10/25/2024 16:39 [facility]
--- OUTSIDE RECORDS SUMMARY | 2025-01-31 15:29 | XMS_ITS | Encounter Summary ---
Author Name [facility] Organization [facility] Address [address] [place] [address] Care Team Providers Care Surfboard Maker Name Role Phone CONOR GATES Primary Care Provider Unavail le Insurance Providers: All historical and current [...] NAL I.A.M . BENE Jul 01, 2022 [id number] [phone] SAMY OLIVIER PATIENT [employer] MENTAL HE[facility] NATIO NAL I.A.M . BENE Jul 01, 2022 [id number] MOLLSAMY LAMBERT NJAL PATIENT Selected Encounter This section includes the information on record at [place] for the Encounter. Date/Time Encounter Type Encounter Description Reason Pro vider Source Apr 22, 2024 08:00 AM OFFICE O/P EST MOD 30 MIN GASTROENTEROLOGY ICD-10-CM K21.9 Gastro-esophagea l reflux disease without esophagitis RUFINO TAN Alysia Encounter Template Text not used by [place] Assessments - Encounter Diagnoses This section includes the primary and secondary diagnoses documented for the Encounter. Date/Time Primary/Secondary Diagnosis Diagnosis Name Provider Source Apr 30, 2024 09:24 AM PRIMARY Gastro-esophageal reflux disease without esophagitis SINGH TAN [facility] Apr 30, 2024 09:24 AM SECONDARY Diarrhea, unspecified [facility]INGH TAN [facility] Apr 30, 2024 09:24 AM SECONDARY Fatty (change of) liver, not elsewhere classified SINGH TAN [facility] Plan of Treatment: Future Appointments (+ 6 months) and Future Tests (+/- 45 days) The Plan of Treatment section includes future care activities for the [facility] [place] [facility] This section includes future appointments and future orders which are active, pending or scheduled. Future Appointments This section includes appointments that were scheduled to occur 6 months from the date of the Encounter, up to a maximum of 20 appointments. The data comes from all [facility] facilities. Appointment Date/Time Appointment Type Appointme nt Facility Name Jul 08, 2024 02:30 PM AMBULATORY - MEDICINE [facility] Jul 17, 2024 09:00 AM AMBULATORY - NONE [facility] Oct 21, 2024 08:40 AM AMBULATORY - MEDICINE [facility] Oct 21, 2024 02:00 PM AMBULATORY - NONE [facility] Vital Signs: All taken on the encounter date This section contains inpatient and outpatient Vital Signs collected on the date of the Encounter. Date/Time Temperature Pulse Blood Pressure Respiratory Rate SP02 Pain Height Weight Body Mass Index Source Apr 22, 2024 08:21 AM 96.9 76 125/86 [address] [facility] Encounter Notes: All associated encounter notes This section contains the clinical notes associated to the Encounter. Date/Time Encounter Note(s) Provider Source Jul 09, 2024 02:47 PM ADDENDUM: LOCAL TITLE: Addendum STANDARD TITLE: ADDENDUM DATE OF NOTE: JUL 09, 2024@14:47:18 ENTRY DATE: JUL 09, 2024@14:47:19 AUTHOR: SINGH TAN EXP COSIGNER: URGENCY: STATUS: COMPLETED I called to discuss with Mr. Olivier, we discussed several domains including calorie load and quality of food intake. he denies steatorrhea and does not have unintentional weight loss. he does not know if his diarrhea persists because he has not fasted. he did not trial imodium. I also discussed antispasmotics and bile acid sequestrants. he prefers an rx for imodium for now as needed for work/travel and would like to visit with PACT RD to discuss how diet can impact bowel frequency. he has FODMAP diet information. /stacy/ Singh Tan PA-C Physician [facility] Signed: 07/09/2024 14:52 Receipt Acknowledged By: 07/13/2024 10:15 /stacy/ ROLANDA BROWN Clinical Dietitian --- Original Document --- 04/22/24 GASTROENTEROLOGY OUTPATIENT FOLLOW UP STL: S: Mr. Limon is a 49 y/o male that presents for follow up regartding GERD, NAFLD and diarrhea. he presents today for six month follow up. today he reports longstanding (decades) diarrhea described as three semiformed stools daily, at times explosive, no nocturnal stools. reports occassional rectal bleeding and defecatory anal pain (hemorrhoids noted on prior colonoscopy as below). he is compliant with 1 tbsp of metamucil daily which reduces urgency. he takes 81mg aspirin due to h/o Afib. only supplement is Centrum MVI. he has no active GERD sx and is not currently taking pantoprazole. Workup summary: EGD 08/12/23 with Grade B esophagitis, gastritis (negative for metaplasia, dysplasia, or malignancy), erythematous duodenapathy, and no esophageal varices. EGD 04/28/19 showed evidence of LA grade B reflux,normal stomach, non-bleeding small <5mm esophageal varices, normal duodenum. Colon: Impression: - One 3 mm polyp in the sigmoid colon, removed with a jumbo cold forceps. Resected and retrieved. - Diverticulosis in the sigmoid colon. - External and internal hemorrhoids. CPRS labs reveal mild continued hepatocellular dysfunction. US 10/08/16: fatty liver, patent vessels, no focal lesions. FIbroscan 08/24/19 CAP 321, LSM 3.8 kPa. US 02/01/21: normal-appearing liver, no ascites 04/22/2024 Fibrosis-4 Score 0.72 FAMILY MEDICAL HISTORY: DM: mother and father CAD/IHD: mother and father-HTN CA: none no known family history of crohn's disease or ulcerative colitis SOCIAL HISTORY: Nicotine: smokes 1 PPD Alcohol: consumes 4 drinks per week Illicit Drugs: none O: General: WDWN MALE (BMI:43.5) in no acute distress, AAO x 3 Vitals: 96.9 F [36.1 C] (04/22/2024 08:21) 76 (04/22/2024 08:21) 16 (04/22/2024 08:21) 125/86 (04/22/2024 08:21) 94% (04/22/2024 08:21) 337.9 lb [153.27 kg] (04/22/2024 08:21) HEENT: Moist MM, tongue appears normal Neck: Appears normal, no palpable masses CVS: RRR on auscultation, No pedal edema Respiratory: Breathing appears normal, Chest is clear to auscultate Abd: Soft, BS+, No abdominal tenderness, No hepatosplenomegaly Musculoskeletal: No clubbing, No cyanosis, normal range of motion Skin: w/o rash, bruise, petechiae or angioma DATA REVIEW: The medication list was reviewed with the patient, discrepancies were resolved, and the patient was offered an updated list. Refills ordered as needed. Labs: Catherine Class [ ]: HGB/MCV: HGB 15.9 g/dL 10/23/2023 09:11 / 91.1 fL (10/23/23 09:11) FE STUDIES: No IRON & TIBC EO data found / No FERRITIN EO data found CHEMISTRY: CREATININE 0.84 mg/dL 10/23/2023 09:11 / 11.7 mg/dL (10/23/23 09:11) / POTASSIUM 4.3 mEq/L 10/23/2023 09:11 / SODIUM 139 mEq/L 10/23/2023 09:11 COAG: No INR EO data found / ____ No HEP C Ab HCV Ab (STL);HEPATITIS C AB (PB);HEP C AB (MA);HCV AB PB(Effective [id number]) data found No HEPATITIS C (10Y) EO data found IMAGING REVIEW: US- No Impressions found CT Abd- No Impressions found A&P: Mr. Limon is a 49 y/o male that presents for follow up regartding GERD, NAFLD and diarrhea. GERD - will use pantoprazole as needed, no warning signs regarding mild diarrhea, I recommended he moderate caloric intake, hold metamucil and start fibercon 1.2g daily, titrate to effect, and use imodium as needed. he can use SM to update us on his bowels. weight reduction via PACT RD, patient will check out whole health, is engaged in care, desiring to stay healthy. follow up in six months /stacy/ Singh Tan PA-C Physician [facility] Signed: 04/23/2024 14:58 07/08/2024 ADDENDUM STATUS: COMPLETED 49-year-old male was seen in PCP clinic for routine follow-up. Continues to report complaints of diarrhea throughout the course of the day. He trialed FiberCon as stated above plan of care. He reports mild improvement in consistency of stool but diarrhea episodes persist. He reports bright red blood in stool at least weekly. Denies complaints of abdominal pain, nausea, or vomiting. Follow-up C-scope due March 2026. Please advise that the can be seen for sooner appointment. He is currently scheduled to be seen with a visual arts teacher in September 2024. /stacy/ CONOR GATES, АНДРЕЙ, AGNP-C NURSE PRACTITIONER Signed: 07/08/2024 15:01 Receipt Acknowledged By: 07/09/2024 10:40 /stacy/ Singh Tan PA-C Physician [facility] 07/09/2024 ADDENDUM STATUS: COMPLETED received note regarding diarrhea and rectal bleeding from PCP, with mention of partial response to fibercon, with no mention of trial of imodium as previously recommended. I called and left VM for callback to discuss current state and other therapeutic options if indicated (e.g. bile acid sequestrants). /stacy/ Singh Tan PA-C Physician [facility] Signed: 07/09/2024 09:43 Receipt Acknowledged By: 07/09/2024 11:20 /es/ CONOR GATES, MSN, AGNP-C NURSE PRACTITIONER 07/09/2024 ADDENDUM STATUS: COMPLETED VM received from stating he was given my # to contact Dax. Alerted [facility] via TEAMS, will tag to this addendum as well. /es/ STEFAN Page, RN GI Signed: 07/09/2024 14:21 Receipt Acknowledged By: 07/09/2024 14:33 /stacy/ Singh Tan PA-C Physician [facility] Jul 09, 2024 02:20 PM ADDENDUM: LOCAL TITLE: Addendum STANDARD TITLE: ADDENDUM DATE OF NOTE: JUL 09, 2024@14:20:53 ENTRY DATE: JUL 09, 2024@14:20:54 AUTHOR: PHILL FOOTE COSIGNER: URGENCY: STATUS: COMPLETED VM received from stating he was given my # to contact Dax. Alerted [facility] via TEAMS, will tag to this addendum as well. /es/ STEFAN Page, RN GI Signed: 07/09/2024 14:21 Receipt Acknowledged By: 07/09/2024 14:33 /stacy/ Singh Tan PA-C Physician [facility]astro[facility] --- Original Document --- 04/22/24 GASTROENTEROLOGY OUTPATIENT FOLLOW UP STL: S: Mr. Limon is a 49 y/o male that presents for follow up regartding GERD, NAFLD and diarrhea. he presents today for six month follow up. today he reports longstanding (decades) diarrhea described as three semiformed stools daily, at times explosive, no nocturnal stools. reports occassional rectal bleeding and defecatory anal pain (hemorrhoids noted on prior colonoscopy as below). he is compliant with 1 tbsp of metamucil daily which reduces urgency. he takes 81mg aspirin due to h/o Afib. only supplement is Centrum MVI. he has no active GERD sx and is not currently taking pantoprazole. Workup summary: EGD 08/12/23 with Grade B esophagitis, gastritis (negative for metaplasia, dysplasia, or malignancy), erythematous duodenapathy, and no esophageal varices. EGD 04/28/19 showed evidence of LA grade B reflux,normal stomach, non-bleeding small <5mm esophageal varices, normal duodenum. Colon: Impression: - One 3 mm polyp in the sigmoid colon, removed with a jumbo cold forceps. Resected and retrieved. - Diverticulosis in the sigmoid colon. - External and internal hemorrhoids. CPRS labs reveal mild continued hepatocellular dysfunction. US 10/08/16: fatty liver, patent vessels, no focal lesions. FIbroscan 08/24/19 CAP 321, LSM 3.8 kPa. US 02/01/21: normal-appearing liver, no ascites 04/22/2024 Fibrosis-4 Score 0.72 FAMILY MEDICAL HISTORY: DM: mother and father CAD/IHD: mother and father-HTN CA: none no known family history of crohn's disease or ulcerative colitis SOCIAL HISTORY: Nicotine: smokes 1 PPD Alcohol: consumes 4 drinks per week Illicit Drugs: none O: General: WDWN MALE (BMI:43.5) in no acute distress, AAO x 3 Vitals: 96.9 F [36.1 C] (04/22/2024 08:21) 76 (04/22/2024 08:21) 16 (04/22/2024 08:21) 125/86 (04/22/2024 08:21) 94% (04/22/2024 08:21) 337.9 lb [153.27 kg] (04/22/2024 08:21) HEENT: Moist MM, tongue appears normal Neck: Appears normal, no palpable masses CVS: RRR on auscultation, No pedal edema Respiratory: Breathing appears normal, Chest is clear to auscultate Abd: Soft, BS+, No abdominal tenderness, No hepatosplenomegaly Musculoskeletal: No clubbing, No cyanosis, normal range of motion Skin: w/o rash, bruise, petechiae or angioma DATA REVIEW: The medication list was reviewed with the patient, discrepancies were resolved, and the patient was offered an updated list. Refills ordered as needed. Labs: Catherine Class [ ]: HGB/MCV: HGB 15.9 g/dL 10/23/2023 09:11 / 91.1 fL (10/23/23 09:11) FE STUDIES: No IRON & TIBC EO data found / No FERRITIN EO data found CHEMISTRY: CREATININE 0.84 mg/dL 10/23/2023 09:11 / 11.7 mg/dL (10/23/23 09:11) / POTASSIUM 4.3 mEq/L 10/23/2023 09:11 / SODIUM 139 mEq/L 10/23/2023 09:11 COAG: No INR EO data found / ____ No HEP C Ab HCV Ab (STL);HEPATITIS C AB (PB);HEP C AB (MA);HCV AB PB(Effective [id number]) data found No HEPATITIS C (10Y) EO data found IMAGING REVIEW: US- No Impressions found CT Abd- No Impressions found A&P: Mr. Limon is a 49 y/o male that presents for follow up regartding GERD, NAFLD and diarrhea. GERD - will use pantoprazole as needed, no warning signs regarding mild diarrhea, I recommended he moderate caloric intake, hold metamucil and start fibercon 1.2g daily, titrate to effect, and use imodium as needed. he can use SM to update us on his bowels. weight reduction via PACT RD, patient will check out whole health, is engaged in care, desiring to stay healthy. follow up in six months /es/ Singh Tan PA-C Physician [facility]astro[facility] Signed: 04/23/2024 14:58 07/08/2024 ADDENDUM STATUS: COMPLETED 49-year-old male was seen in PCP clinic for routine follow-up. Continues to report complaints of diarrhea throughout the course of the day. He trialed FiberCon as stated above plan of care. He reports mild improvement in consistency of stool but diarrhea episodes persist. He reports bright red blood in stool at least weekly. Denies complaints of abdominal pain, nausea, or vomiting. Follow-up C-scope due March 2026. Please advise that the can be seen for sooner appointment. He is currently scheduled to be seen with a visual arts teacher in September 2024. /stacy/ CONOR GATES, MSN, AGNP-C NURSE PRACTITIONER Signed: 07/08/2024 15:01 Receipt Acknowledged By: 07/09/2024 10:40 /stacy/ Singh Tan PA-C Physician [facility] 07/09/2024 ADDENDUM STATUS: COMPLETED received note regarding diarrhea and rectal bleeding from PCP, with mention of partial response to fibercon, with no mention of trial of imodium as previously recommended. I called and left VM for callback to discuss current state and other therapeutic options if indicated (e.g. bile acid sequestrants). /stacy/ Singh Tan PA-C Physician [facility]astro[facility] Signed: 07/09/2024 09:43 Receipt Acknowledged By: 07/09/2024 11:20 /stacy/ АНДРЕЙ PRINGLE, ARAM NURSE PRACTITIONER PHILL FOOTE [facility] Jul 09, 2024 09:41 AM ADDENDUM: LOCAL TITLE: Addendum STANDARD TITLE: ADDENDUM DATE OF NOTE: JUL 09, 2024@09:41:16 ENTRY DATE: JUL 09, 2024@09:41:17 AUTHOR: SINGH TAN COSIGNER: URGENCY: STATUS: COMPLETED received note regarding diarrhea and rectal bleeding from PCP, with mention of partial response to fibercon, with no mention of trial of imodium as previously recommended. I called and left VM for callback to discuss current state and other therapeutic options if indicated (e.g. bile acid sequestrants). /stuart Tan PA-C Physician [facility] Gastroenter[facility] Signed: 07/09/2024 09:43 Receipt Acknowledged By: 07/09/2024 11:20 /stuart GATES MSN, TRIPP-C NURSE PRACTITIONER --- Original Document --- 04/22/24 GASTROENTEROLOGY OUTPATIENT FOLLOW UP STL: S: Mr. Limon is a 49 y/o male that presents for follow up regartding GERD, NAFLD and diarrhea. he presents today for six month follow up. today he reports longstanding (decades) diarrhea described as three semiformed stools daily, at times explosive, no nocturnal stools. reports occassional rectal bleeding and defecatory anal pain (hemorrhoids noted on prior colonoscopy as below). he is compliant with 1 tbsp of metamucil daily which reduces urgency. he takes 81mg aspirin due to h/o Afib. only supplement is Centrum MVI. he has no active GERD sx and is not currently taking pantoprazole. Workup summary: EGD 08/12/23 with Grade B esophagitis, gastritis (negative for metaplasia, dysplasia, or malignancy), erythematous duodenapathy, and no esophageal varices. EGD 04/28/19 showed evidence of LA grade B reflux,normal stomach, non-bleeding small <5mm esophageal varices, normal duodenum. Colon: Impression: - One 3 mm polyp in the sigmoid colon, removed with a jumbo cold forceps. Resected and retrieved. - Diverticulosis in the sigmoid colon. - External and internal hemorrhoids. CPRS labs reveal mild continued hepatocellular dysfunction. US 10/08/16: fatty liver, patent vessels, no focal lesions. FIbroscan 08/24/19 CAP 321, LSM 3.8 kPa. US 02/01/21: normal-appearing liver, no ascites 04/22/2024 Fibrosis-4 Score 0.72 FAMILY MEDICAL HISTORY: DM: mother and father CAD/IHD: mother and father-HTN CA: none no known family history of crohn's disease or ulcerative colitis SOCIAL HISTORY: Nicotine: smokes 1 PPD Alcohol: consumes 4 drinks per week Illicit Drugs: none O: General: WDWN MALE (BMI:43.5) in no acute distress, AAO x 3 Vitals: 96.9 F [36.1 C] (04/22/2024 08:21) 76 (04/22/2024 08:21) 16 (04/22/2024 08:21) 125/86 (04/22/2024 08:21) 94% (04/22/2024 08:21) 337.9 lb [153.27 kg] (04/22/2024 08:21) HEENT: Moist MM, tongue appears normal Neck: Appears normal, no palpable masses CVS: RRR on auscultation, No pedal edema Respiratory: Breathing appears normal, Chest is clear to auscultate Abd: Soft, BS+, No abdominal tenderness, No hepatosplenomegaly Musculoskeletal: No clubbing, No cyanosis, normal range of motion Skin: w/o rash, bruise, petechiae or angioma DATA REVIEW: The medication list was reviewed with the patient, discrepancies were resolved, and the patient was offered an updated list. Refills ordered as needed. Labs: Catherine Class [ ]: HGB/MCV: HGB 15.9 g/dL 10/23/2023 09:11 / 91.1 fL (10/23/23 09:11) FE STUDIES: No IRON & TIBC EO data found / No FERRITIN EO data found CHEMISTRY: CREATININE 0.84 mg/dL 10/23/2023 09:11 / 11.7 mg/dL (10/23/23 09:11) / POTASSIUM 4.3 mEq/L 10/23/2023 09:11 / SODIUM 139 mEq/L 10/23/2023 09:11 COAG: No INR EO data found / ____ No HEP C Ab HCV Ab (STL);HEPATITIS C AB (PB);HEP C AB (MA);HCV AB PB(Effective [id number]) data found No HEPATITIS C (10Y) EO data found IMAGING REVIEW: US- No Impressions found CT Abd- No Impressions found A&P: Mr. Limon is a 49 y/o male that presents for follow up regartding GERD, NAFLD and diarrhea. GERD - will use pantoprazole as needed, no warning signs regarding mild diarrhea, I recommended he moderate caloric intake, hold metamucil and start fibercon 1.2g daily, titrate to effect, and use imodium as needed. he can use SM to update us on his bowels. weight reduction via PACT RD, patient will check out whole health, is engaged in care, desiring to stay healthy. follow up in six months /stacy/ Singh Tan PA-C Physician Air Bag Stripper Gastroenterology Signed: 04/23/2024 14:58 07/08/2024 ADDENDUM STATUS: COMPLETED 49-year-old male was seen in PCP clinic for routine follow-up. Continues to report complaints of diarrhea throughout the course of the day. He trialed FiberCon as stated above plan of care. He reports mild improvement in consistency of stool but diarrhea episodes persist. He reports bright red blood in stool at least weekly. Denies complaints of abdominal pain, nausea, or vomiting. Follow-up C-scope due March 2026. Please advise that the can be seen for sooner appointment. He is currently scheduled to be seen with a visual arts teacher in September 2024. /АНДРЕЙ Camacho, ARAM NURSE PRACTITIONER Signed: 07/08/2024 15:01 Receipt Acknowledged By: 07/09/2024 10:40 /stuart Tan PA-C Physician Air Bag Stripper Gastroenterology SINGH TAN [facility] Jul 08, 2024 03:00 PM ADDENDUM: LOCAL TITLE: Addendum STANDARD TITLE: ADDENDUM DATE OF NOTE: JUL 08, 2024@15:00:03 ENTRY DATE: JUL 08, 2024@15:00:04 AUTHOR: CONOR GATES COSIGNER: URGENCY: STATUS: COMPLETED 49-year-old male was seen in PCP clinic for routine follow-up. Continues to report complaints of diarrhea throughout the course of the day. He trialed FiberCon as stated above plan of care. He reports mild improvement in consistency of stool but diarrhea episodes persist. He reports bright red blood in stool at least weekly. Denies complaints of abdominal pain, nausea, or vomiting. Follow-up C-scope due March 2026. Please advise that the can be seen for sooner appointment. He is currently scheduled to be seen with a visual arts teacher in September 2024. /АНДРЕЙ Camacho, ARAM NURSE PRACTITIONER Signed: 07/08/2024 15:01 Receipt Acknowledged By: 07/09/2024 10:40 /stacy/ Singh Tan PA-C Physician Air Bag Stripper Gastroenterology --- Original Document --- 04/22/24 GASTROENTEROLOGY OUTPATIENT FOLLOW UP STL: S: Mr. Limon is a 49 y/o male that presents for follow up regartding GERD, NAFLD and diarrhea. he presents today for six month follow up. today he reports longstanding (decades) diarrhea described as three semiformed stools daily, at times explosive, no nocturnal stools. reports occassional rectal bleeding and defecatory anal pain (hemorrhoids noted on prior colonoscopy as below). he is compliant with 1 tbsp of metamucil daily which reduces urgency. he takes 81mg aspirin due to h/o Afib. only supplement is Centrum MVI. he has no active GERD sx and is not currently taking pantoprazole. Workup summary: EGD 08/12/23 with Grade B esophagitis, gastritis (negative for metaplasia, dysplasia, or malignancy), erythematous duodenapathy, and no esophageal varices. EGD 04/28/19 showed evidence of LA grade B reflux,normal stomach, non-bleeding small <5mm esophageal varices, normal duodenum. Colon: Impression: - One 3 mm polyp in the sigmoid colon, removed with a jumbo cold forceps. Resected and retrieved. - Diverticulosis in the sigmoid colon. - External and internal hemorrhoids. CPRS labs reveal mild continued hepatocellular dysfunction. US 10/08/16: fatty liver, patent vessels, no focal lesions. FIbroscan 08/24/19 CAP 321, LSM 3.8 kPa. US 02/01/21: normal-appearing liver, no ascites 04/22/2024 Fibrosis-4 Score 0.72 FAMILY MEDICAL HISTORY: DM: mother and father CAD/IHD: mother and father-HTN CA: none no known family history of crohn's disease or ulcerative colitis SOCIAL HISTORY: Nicotine: smokes 1 PPD Alcohol: consumes 4 drinks per week Illicit Drugs: none O: General: WDWN MALE (BMI:43.5) in no acute distress, AAO x 3 Vitals: 96.9 F [36.1 C] (04/22/2024 08:21) 76 (04/22/2024 08:21) 16 (04/22/2024 08:21) 125/86 (04/22/2024 08:21) 94% (04/22/2024 08:21) 337.9 lb [153.27 kg] (04/22/2024 08:21) HEENT: Moist MM, tongue appears normal Neck: Appears normal, no palpable masses CVS: RRR on auscultation, No pedal edema Respiratory: Breathing appears normal, Chest is clear to auscultate Abd: Soft, BS+, No abdominal tenderness, No hepatosplenomegaly Musculoskeletal: No clubbing, No cyanosis, normal range of motion Skin: w/o rash, bruise, petechiae or angioma DATA REVIEW: The medication list was reviewed with the patient, discrepancies were resolved, and the patient was offered an updated list. Refills ordered as needed. Labs: Catherine Class [ ]: HGB/MCV: HGB 15.9 g/dL 10/23/2023 09:11 / 91.1 fL (10/23/23 09:11) FE STUDIES: No IRON & TIBC EO data found / No FERRITIN EO data found CHEMISTRY: CREATININE 0.84 mg/dL 10/23/2023 09:11 / 11.7 mg/dL (10/23/23 09:11) / POTASSIUM 4.3 mEq/L 10/23/2023 09:11 / SODIUM 139 mEq/L 10/23/2023 09:11 COAG: No INR EO data found / ____ No HEP C Ab HCV Ab (STL);HEPATITIS C AB (PB);HEP C AB (MA);HCV AB PB(Effective [id number]) data found No HEPATITIS C (10Y) EO data found IMAGING REVIEW: US- No Impressions found CT Abd- No Impressions found A&P: Mr. Limon is a 49 y/o male that presents for follow up regartding GERD, NAFLD and diarrhea. GERD - will use pantoprazole as needed, no warning signs regarding mild diarrhea, I recommended he moderate caloric intake, hold metamucil and start fibercon 1.2g daily, titrate to effect, and use imodium as needed. he can use SM to update us on his bowels. weight reduction via PACT RD, patient will check out whole health, is engaged in care, desiring to stay healthy. follow up in six months /stacy/ Singh Tan PA-C Physician Air Bag Stripper Gastroenterology Signed: 04/23/2024 14:58 07/09/2024 ADDENDUM STATUS: COMPLETED received note regarding diarrhea and rectal bleeding from PCP, with mention of partial response to fibercon, with no mention of trial of imodium as previously recommended. I called and left for callback to discuss current state and other therapeutic options if indicated (e.g. bile acid sequestrants). /stacy/ Singh Tan PA-C Physician Air Bag Stripper Gastroenterology Signed: 07/09/2024 09:43 Receipt Acknowledged By: * AWAITING SIGNATURE * CONOR GATES [facility] Apr 22, 2024 08:27 AM GASTROENTEROLOGY OUTPATIENT NOTE: LOCAL TITLE: GASTROENTEROLOGY OUTPATIENT FOLLOW UP [facility] STANDARD TITLE: GASTROENTEROLOGY OUTPATIENT NOTE DATE OF NOTE: APR 22, 2024@08:27 ENTRY DATE: APR 22, 2024@08:27:33 AUTHOR: SINGH TAN EXP COSIGNER: URGENCY: STATUS: COMPLETED GASTROENTEROLOGY OUTPATIENT FOLLOW UP [facility] Has ADDENDA S: Mr. Limon is a 49 y/o male that presents for follow up regartding GERD, NAFLD and diarrhea. he presents today for six month follow up. today he reports longstanding (decades) diarrhea described as three semiformed stools daily, at times explosive, no nocturnal stools. reports occassional rectal bleeding and defecatory anal pain (hemorrhoids noted on prior colonoscopy as below). he is compliant with 1 tbsp of metamucil daily which reduces urgency. he takes 81mg aspirin due to h/o Afib. only supplement is Centrum MVI. he has no active GERD sx and is not currently taking pantoprazole. Workup summary: EGD 08/12/23 with Grade B esophagitis, gastritis (negative for metaplasia, dysplasia, or malignancy), erythematous duodenapathy, and no esophageal varices. EGD 04/28/19 showed evidence of LA grade B reflux,normal stomach, non-bleeding small <5mm esophageal varices, normal duodenum. Colon: Impression: - One 3 mm polyp in the sigmoid colon, removed with a jumbo cold forceps. Resected and retrieved. - Diverticulosis in the sigmoid colon. - External and internal hemorrhoids. CPRS labs reveal mild continued hepatocellular dysfunction. US 10/08/16: fatty liver, patent vessels, no focal lesions. FIbroscan 08/24/19 CAP 321, LSM 3.8 kPa. US 02/01/21: normal-appearing liver, no ascites 04/22/2024 Fibrosis-4 Score 0.72 FAMILY MEDICAL HISTORY: DM: mother and father CAD/IHD: mother and father-HTN CA: none no known family history of crohn's disease or ulcerative colitis SOCIAL HISTORY: Nicotine: smokes 1 PPD Alcohol: consumes 4 drinks per week Illicit Drugs: none O: General: WDWN MALE (BMI:43.5) in no acute distress, AAO x 3 Vitals: 96.9 F [36.1 C] (04/22/2024 08:21) 76 (04/22/2024 08:21) 16 (04/22/2024 08:21) 125/86 (04/22/2024 08:21) 94% (04/22/2024 08:21) 337.9 lb [153.27 kg] (04/22/2024 08:21) HEENT: Moist MM, tongue appears normal Neck: Appears normal, no palpable masses CVS: RRR on auscultation, No pedal edema Respiratory: Breathing appears normal, Chest is clear to auscultate Abd: Soft, BS+, No abdominal tenderness, No hepatosplenomegaly Musculoskeletal: No clubbing, No cyanosis, normal range of motion Skin: w/o rash, bruise, petechiae or angioma DATA REVIEW: The medication list was reviewed with the patient, discrepancies were resolved, and the patient was offered an updated list. Refills ordered as needed. Labs: Catherine Class [ ]: HGB/MCV: HGB 15.9 g/dL 10/23/2023 09:11 / 91.1 fL (10/23/23 09:11) FE STUDIES: No IRON & TIBC EO data found / No FERRITIN EO data found CHEMISTRY: CREATININE 0.84 mg/dL 10/23/2023 09:11 / 11.7 mg/dL (10/23/23 09:11) / POTASSIUM 4.3 mEq/L 10/23/2023 09:11 / SODIUM 139 mEq/L 10/23/2023 09:11 COAG: No INR EO data found / ____ No HEP C Ab HCV Ab (STL);HEPATITIS C AB (PB);HEP C AB (MA);HCV AB PB(Effective [id number]) data found No HEPATITIS C (10Y) EO data found IMAGING REVIEW: US- No Impressions found CT Abd- No Impressions found A&P: Mr. Limon is a 49 y/o male that presents for follow up regartding GERD, NAFLD and diarrhea. GERD - will use pantoprazole as needed, no warning signs regarding mild diarrhea, I recommended he moderate caloric intake, hold metamucil and start fibercon 1.2g daily, titrate to effect, and use imodium as needed. he can use SM to update us on his bowels. weight reduction via PACT RD, patient will check out [facility], is engaged in care, desiring to stay healthy. follow up in six months /stacy/ Singh Tan PA-C Physician Air Bag Stripper Gastroenterology Signed: 04/23/2024 14:58 07/08/2024 ADDENDUM STATUS: COMPLETED 49-year-old male was seen in PCP clinic for routine follow-up. Continues to report complaints of diarrhea throughout the course of the day. He trialed FiberCon as stated above plan of care. He reports mild improvement in consistency of stool but diarrhea episodes persist. He reports bright red blood in stool at least weekly. Denies complaints of abdominal pain, nausea, or vomiting. Follow-up C-scope due March 2026. Please advise that the can be seen for sooner appointment. He is currently scheduled to be seen with a visual arts teacher in September 2024. /stacy/ CONOR GATES MSN, NOBLEP-C NURSE PRACTITIONER Signed: 07/08/2024 15:01 Receipt Acknowledged By: 07/09/2024 10:40 /stacy/ Singh Tan PA-C Physician Air Bag Stripper Gastroenterology 07/09/2024 ADDENDUM STATUS: COMPLETED received note regarding diarrhea and rectal bleeding from PCP, with mention of partial response to fibercon, with no mention of trial of imodium as previously recommended. I called and left VM for callback to discuss current state and other therapeutic options if indicated (e.g. bile acid sequestrants). /stacy/ Singh Tan PA-C Physician Air Bag Stripper Gastroenterology Signed: 07/09/2024 09:43 Receipt Acknowledged By: 07/09/2024 11:20 /stuart GATES MSN, NOBLEP-C NURSE PRACTITIONER 07/09/2024 ADDENDUM STATUS: COMPLETED VM received from stating he was given my # to contact Dax. Alerted [facility] via TEAMS, will tag to this addendum as well. /stacy/ STEFAN Page, RN GI Signed: 07/09/2024 14:21 Receipt Acknowledged By: 07/09/2024 14:33 /stacy/ Singh Tan PA-C Physician Air Bag Stripper Gastroenterology 07/09/2024 ADDENDUM STATUS: COMPLETED I called to discuss with Mr. Olivier, we discussed several domains including calorie load and quality of food intake. he denies steatorrhea and does not have unintentional weight loss. he does not know if his diarrhea persists because he has not fasted. he did not trial imodium. I also discussed antispasmotics and bile acid sequestrants. he prefers an rx for imodium for now as needed for work/travel and would like to visit with PACT RD to discuss how diet can impact bowel frequency. he has FODMAP diet information. /stacy/ Singh Tan PA-C Physician Air Bag Stripper Gastroenterology Signed: 07/09/2024 14:52 Receipt Acknowledged By: * AWAITING SIGNATURE * ROLANDA BROWN [facility]
--- OUTSIDE RECORDS SUMMARY | 2025-01-31 15:29 | XMS_ITS | Encounter Summary ---
Author Organization [facility] Address [facility] [place] [address] Care Team Providers Care Want Ad Receiver Name Role Phone Miguel A Coleman MD Primary Care Provider [phone] Amadeo Cole MD Unavailable [phone] Encounter Details Date Type Department Care Team (Late st Contact Info) Description 07/15/2017 Abstract [facility] at [address] [address] Irene Noonan MA Social History Tobacco Use Types Packs/Day Years Used Date Smoking Tobacco: Former Smokeless Tobacco: Former Chew Quit: 05/2017 Comments:05/2017 Alcohol Use Standard Drinks/Week Comments Yes 0 (1 standard drink = 0.6 oz pur e alcohol) scotch 2/week Sex and Gender Information Value Date Recorded Sex Assigned at Not on file Legal Sex Male 7:27 PM CDT Gender Identity Not on file Sexual Orientation Not on file documented as of this encounter Plan of Treatment Not on file documented as of this encounter Procedures Procedure Name Priority Date/Time Associated Diagnosis Comments CBC (OUTSIDE LAB) Routine 06/23/2017 BASIC METABOLIC PANEL Routine 06/23/2017 THYROID STIM HORMONE TSH Routine 06/22/2017 CK (CPK) Routine 06/22/2017 documented in this encounter Results * BASIC METABOLIC PANEL (06/23/2017) SODIUM S/P/B 141 POTASSIUM S/P/B 3.5 CO2 26 CHLORIDE S/P/B 108 GLUCOSE 98 mg/dL CALCIUM S/P/B 8.6 BUN 14 CREATININE S/P/B 0.81 0.7 - 1.3 EGFR NON-AFR. AMER. >60 <=90 06/23/2017 us Doc [facility] Abstract LABORATORY Final Result * CBC (OUTSIDE LAB) (06/23/2017) WBC 7.5 HGB 14.2 HCT 40.1 PLT 214 06/23/2017 us Doc [facility] Abstract LAB-OUTSIDE/ABSTRACTED Final Result * CK (CPK) (06/22/2017) CPK 517 06/22/2017 us Doc [facility] Abstract LABORATORY Final Result * THYROID STIM HORMONE, TSH (06/22/2017) TSH 0.80 06/22/2017 us Doc [facility] Abstract LABORATORY Final Result documented in this encounter Visit Diagnoses Not on filedocumented in this encounter Care Teams Want Ad Receiver Relationship Specialty Start Date End Date Miguel A Coleman MD [address] [place] [address] [place] [address] PCP - General FAMILY PRACTICE 05/31/17 11/26/18 Amadeo Cole MD [address] [place] [address] Kirstin Paint Supervisor CARDIOVASCULAR DISEASE 07/02/17 documented as of this encounter
--- OUTSIDE RECORDS SUMMARY | 2025-01-31 15:29 | XMS_ITS ---
[place] NUTRITION INDIV SUBSEQ [facility] Encounter Summary Created on: January 04, 2025 DONOVAN ALEXANDER : 1975 Sex: Male Author Name [facility] Organization [facility] Address [address] [place] [address] Care Team Providers Care It Administrator Name Role Phone CONOR GATES Primary Care [...] TRANS [facility] Jul 01, [id number] [phone] SAMY ALEXANDER PATIENT Selected Encounter This section includes the information on record at [place] for the Encounter. Date/Time Encounter Type Encounter Description Reason Provider Source Dec 31, 2024 02:00 PM MED NUTRITION INDIV SUBSEQ PRIMARY CARE/MEDICINE ICD-10-CM E66.811 Obesity, class 1 ASHLEE BROWN IHAlysia Encounter Template Text not used by [facility] Assessments - Encounter Diagnoses This section includes the primary and secondary diagnoses documented for the Encounter. Date/Time Primary/Secondary Diagnosis Diagnosis Name Provider Source Dec 31, 2024 02:46 PM PRIMARY Obesity, class 1 KARTHIK BROWN [facility] Dec 31, 2024 02:46 PM SECONDARY Dietary counseling and surveillance KARTHIK BROWN [facility] Plan of Treatment: Future Appointments (+ 6 months) and Future Tests (+/- 45 days) The Plan of Treatment section includes future care activities for the patient from all [place] treatmentfacilities. This section includes future appointments and future orders which are active, pending or scheduled. Future Appointments This section includes appointments that were scheduled to occur 6 months from the date of the Encounter, up to a maximum of 20 appointments. The data comes from all [facility]. Appointment Date/Time Appointment Type Appointme nt Facility Name Feb 02, 2025 08:00 AM AMBULATORY - NONE [facility] Apr 14, 2025 03:00 PM AMBULATORY - MEDICINE [facility] Active, Pending, and Scheduled Orders This section [...] Date/Time Test Type Test Details Facility Name Feb 02, 2025 12:00 AM Imaging - Magnetic Resonance Imaging (MRI) Order MRI SHOULDER RIGHT RIGHT [facility] Vital Signs: All taken on the encounter date This section contains inpatient and outpatient Vital Signs collected on the date of the Encounter. Date/Time Temperature Pulse Blood Pressure Respiratory Rate SP02 Pain Height Weight Body Mass Index Source Dec 31, 2024 02:45 PM 253.5 lb 33 [facility] Social History: Smoking Status (Most current) and Tobacco Use (All prior to encounter date) This section includes the most current, and the historical, smoking and tobacco- related health factors from the [place] facility where the Encounter took place. Current Smoking Status This section includes the most current smoking, or tobacco-related health factor, from the [place] facility where the Encounter took place. Date/Time Current Smoking Status Comment Mariana smith Oct 15, 2024 02:00 PM VA-TOBACCO NEVER USED OTHER TYPE [facility] Tobacco Use History This section includes a history of the smoking, or tobacco-related health factors, that were collected on or before the date of the Encounter. The data comes from the [place] facility where the Encounter took place. Date/Time Smoking Status/Tobacco Use Comment F milkaility Oct 15, 2024 02:00 PM VA-TOBACCO USE FOR SUKUMAR CIGARETTES [facility] Oct 17, 2023 01:30 PM VA-TOBACCO NEVER USED [facility] Oct 18, 2022 01:00 PM VA-TOBACCO USE > 1 5 LESS THAN 30 YEARS [facility] Oct 18, 2022 01:00 PM VA-TOBACCO USE ADVICE [facility] Oct 18, 2022 01:00 PM VA-TOBACCO USE ASSISTANT WOMEN'S ROWING COACH NO [facility] Oct 18, 2022 01:00 PM VA-TOBACCO USE MED NOTIFY PROVIDER LABORER [employer] CONOR GATES [facility] Oct 18, 2022 01:00 PM VA-TOBACCO USE WI 30 MIN OF WAKEUP [facility] Oct 18, 2022 01:00 PM VA-TOBACCO USER EVERY DAY [facility] Radiology Reports: +/- 30 days [...] the Encounter. The data comes from all [place] treatment facilities. Date/Time Radiology Report Provider Source Dec 04, 2024 08:44 AM MRI SHOULDER RIGHT : DONOVAN ALEXANDER [id number] -1975 M Exm Date: DEC 04, 2024@08:44 Req Phys: CONOR GATES Pat Loc: [facility] 7 PCP (Req'g Loc) Img Loc: [facility] Service: Unknown [facility] [address] [place] [address] (Case [id number] COMPLETE) MRI SHOULDER RIGHT (MRI Detailed) CPT:27215 Proc Modifiers : RIGHT CPT Modifiers : RT RIGHT SIDE Reason for Study: right shoulder pain Clinical History: was lifting weights and notice immediate pain after bench pressing weight and later performing dumb bells flies. ROM significantly impaired. r/o rotator cuff involvement Has this patient had a plain film x-ray of this body part within the past 6 months? No If no, please order a plain film x-ray. After the results of the x-ray, you may then proceed to order an MRI if necessary. Otherwise, this MRI order will be cancelled. Date of plain film x-ray performed? Sep Responsible Attending: Conor Gates Attending Contact Number: [facility] Resident Contact Number: n/a Does your patient have an implanted device or hardware? (Any prosthesis, implant, shrapnel or bullet fragments) No Does your patient have any of the following (Please check all that apply) No PACEMAKER No AICD No ANEURYSM CLIP No ARTIFICIAL HEART VALVE No BONE GROWTH SIMULATOR No COCHLEAR IMPLANT No INSULIN PUMP No NEURO-STIMULATOR No OCULAR IMPLANT No PAIN PUMP No PENILE IMPLANT No VASCULAR CLIP Any other type of implant, please explain Were any of the following intravascular implanted devices inserted less than 6 weeks ago: Stent No IVC Filter No Embolization Coils No Does your patient have Renal Failure, Chronic or Acute Renal Disease? No NOTE: Incorrectly answering these questions may result in a delay in the procedure. A patient with a device or implant does not automatically mean the patient cannot receive an MRI. If your patient will have difficulty with a confined space, the provider will be responsible for ordering a sedative prior to the procedure, or ordering an alternative imaging study. I hereby affirm that I have thoroughly reviewed the patient's chart and/or spoke to the patient to ensure accuracy of this information. I am fully aware of the potential morbidity issues that may arise from including incorrect information in this order. No I fully comprehend that any submission of incorrect information in this order will result in its return, with the expectation that a new, accurate order will be placed No Full Name and title:Conor Gates NP ------- In the event this patient needs referred to Community Care: Does this patient have mobility issues that will require additional assistance at the imaging center? No If yes, please provide specifics: Does this patient require an open bore MRI due to claustrophobia? No Has a close bore MRI with oral sedation been tried? No This order requests: Without Contrast Report Status: Verified Date Reported: DEC 04, 2024 Date Verified: DEC 04, 2024 Impregnator And Drier E-Sig:/ES/USHA SHIPLEY Report: Case [id number]. MRI SHOULDER RIGHT History: Right shoulder pain. Post lifting weights and noticed immediate pain after bench pressing. COMPARISON: Shoulder radiographs 10/21/2024 FINDINGS: Because of pain the patient was [...] is able to better tolerate the study. Primary Interpreting Staff: USHA SHIPLEY, RADIOLOGIST ([place]elsey) /USHA STRAUSS [facility] Encounter Notes: All associated encounter notes This section contains the clinical notes associated to the Encounter. Date/Time Encounter Note(s) Provider Source Dec 31, 2024 01:59 PM NUTRITION DIETETIC S NOTE: LOCAL TITLE: NUTRITION FOLLOW UP [facility] STANDARD TITLE: NUTRITION DIETETICS NOTE DATE OF NOTE: DEC 31, 2024@13:59 ENTRY DATE: DEC 31, 2024@13:59:58 AUTHOR: ROLANDA BROWN COSIGNER: URGENCY: STATUS: COMPLETED Modality of Care: Clinical Video Telehealth Visit conducted by Clinical Video Telehealth. Patient/surrogate provided verbal consent for video telehealth. Patient location confirmed. Emergency number confirmed. Patient Contact Details: Best contact number for backup communication with patient: # listed NUTRITION REASSESSMENT Diagnosis: Obesity Time spent with [place]: ~ 30 minutes Last appointment date: 10/21/24 Id by: name, CLIENT HISTORY Patient Medical History: HTN - Hypertension Tobacco User Current drinker Obstructive Sleep Apnea of Adult Alcoholic fatty liver GERD - Gastro-Esophageal Reflux Disease Hyperlipidemia Exposure to potentially hazardous substance Social history: 49 YOM, with kids FOOD AND NUTRITION RELATED HISTORY Since last appointment: --reintroduced carbs, but stays away from carbs finding he was having low energy levels --recognized keto was hard to sustain --continues to cut out processed foods, fast foods --continues to do meal prep and tracking intake --protein shakes: KaChava Fluid/Beverage intake: *at last appt: - water 64 fl oz, fizzy water - cut out sodas, sweet tea - 1 cup chicken bouillon water - pineapple juice 4 oz Food intake: 3 meals + snacks B: fruit: oranges, peaches, apples, Citizen Of [place] yogurt OR whole wheat toast with preserves, eggs, sausage L: low carb wrap D: asparagus wrapped w/rasmussen, steak OR tuna OR salmon, rice Snacks: handful of almonds through the day OUTPATIENT MEDICATIONS ATORVASTATIN CALCIUM 40MG TAB TAKE ONE-HALF TABLET BY MOUTH ACTIVE (S) EVERY EVENING Indication: FOR HIGH CHOLESTEROL CALCIUM POLYCARBOPHIL 625MG TAB TAKE TWO TABLETS BY MOUTH ACTIVE ONCE A DAY Indication: FOR FIBER SUPPLEMENTATION IRBESARTAN 75MG TAB TAKE ONE TABLET BY MOUTH ONCE A DAY HOLD Indication: FOR HIGH BLOOD PRESSURE LOPERAMIDE HCL 2MG CAP TAKE TWO CAPSULES BY MOUTH ONCE A DAY ACTIVE NEEDED Indication: FOR DIARRHEA Non-VA ASCORBIC ACID TAB BY MOUTH ACTIVE Indication: FOR VITAMIN C SUPPLEMENTATION Non-VA MULTIVITAMIN CAP/TAB 1 TABLET BY MOUTH ONCE A DAY ACTIVE Indication: FOR NUTRITION/DIETARY SUPPLEMENTATION ACTIVE Indication: FOR VITAMIN C SUPPLEMENTATION Non-VA MELATONIN CAP/TAB BY MOUTH ACTIVE Indication: FOR SLEEP Non-VA MULTIVITAMIN CAP/TAB 1 TABLET BY MOUTH ONCE A DAY ACTIVE Indication: FOR NUTRITION/DIETARY SUPPLEMENTATION KNOWLEDGE BELIEFS AND ATTITUDES - Motivated to lose weight by his birthday in a few months - At a weight plateau for the last 3 weeks BEHAVIOR - Has made significant dietary changes. Tracking vitals, kcal, body fat % with home scale - Has reduced kcal from 1000 to 400-500 kcal deficit a day; feeling this is more sustainable PHYSICAL ACTIVITY AND FUNCTION Nutrition related ADLs: Eating separate meals from family. Completes his own cooking, shopping. Physical activity: 2 miles a day (1 in morning, 1 in evening) and have been taking a [employer] class 3 nights a week (2 hour class) 1 hour of low intensity, 1 hour of high intensity. [employer] at lunch - treadmill walking 6 miles one hour lifting ANTHROPOMETRIC MEASUREMENTS Ht: 74 in [188.0 cm] (10/17/2023 13:24) Wt: 253.5 lb [114.99 kg] (12/31/2024 14:45) Weight History/Significant changes: *significant wt loss; intentional -32 lbs/11% in ~2.5 months -94.5 lbs/27% in ~5.5 months Patient Weight History - Last Four 1. 253.5 lbs. / 115.0 kg. on DEC 31, 2024@14:45:35 2. 285.5 lbs. / 129.5 kg. on OCT 21, 2024@08:25:37 3. 300.2 lbs. / 136.2 kg. on OCT 15, 2024@14:01:48 4. 293.6 lbs. / 133.2 kg. on OCT 14, 2024@16:25:09 3. 293.6 lbs. / 133.2 kg. on OCT 14, 2024@16:25:09 4. 348.0 lbs. / 157.9 kg. on JUL 08, 2024@14:13:04 BMI: 32.6 [COMPARATIVE STANDARD: Goal: 225 lbs] BIOCHEMICAL DATA/MEDICAL TESTS AND PROCEDURES - no updated labs since last appt TRIGLYCERIDE 210 H mg/dL 07/23/2024 08:40 CHOLESTEROL 136 mg/dL 07/23/2024 08:40 HDL(New) 26 L mg/dL 07/23/2024 08:40 DIRECT LDL 82 L mg/dL 07/14/2024 09:20 CALCULATED LDL 68 mg/dL 07/23/2024 08:40 NUTRITION FOCUSED PHYSICAL FINDINGS Ample fat and muscle stores within camera view No GI concerns - improved with diet changes; occ fluctuations with loose stools and constipation. Reports long lived loose stools over several years. + 5 hours sleep CPAP Improved energy levels Wt loss significant and intentional No malnutrition indicated NUTRITION PRESCRIPTION Estimated energy needs: 0334-0107 calories per day (REE x AF 1.3-1.4 - 500 kcal for Wt loss) Estimated protein needs: 115 grams of protein per day (1 g/kg BW) Nutrition prescription specifics: General healthful diet, decreased energy needs NUTRITION DIAGNOSIS ACTIVE/updated Obesity related to decreased energy needs as evidenced by BMI more than normative standard for age/sex: Class I, hx large portions of food, hx estimated excessive energy intake. [Category: behavior etiology] NUTRITION INTERVENTIONS Nutrition counseling based on motivational interviewing strategy Content related nutrition education: -- Discussed safe weight loss trajectory; significant amount of weight lost since diet changes and normalized plateau. --Applauded flexibility with diet and reintroduction of additional carbohydrates to support physical activity levels. --Provided updated kcal, protein goals. --Discussed fiber, protein sources and small ways to include into diet: valdemar seeds, flaxseeds, nutritional yeast. Education material: verbal, [facility] Barriers to learning: none Comprehension: good NUTRITION MONITORING AND EVALUATION Measured weight: trending towards 225 lbs. goal by follow up -GOAL ACHIEVED, continue- Meal and snack pattern: - increase protein intake through f/u ( > 15 g per meal) -GOAL ACHIEVED- - increase flexibility with meals to include complex carbs through the day -GOAL ACHIEVED, continue- NEW: Food variety intake: trial nutritional yeast, valdemar seeds, and/or flaxseeds by f/u Return to clinic: 3 months /stacy/ ROLANDA BROWN Clinical Dietitian Signed: 01/04/2025 08:33 ROLANDA BROWN [facility]
--- OUTSIDE RECORDS SUMMARY | 2025-01-31 15:29 | XMS_ITS | Encounter Summary ---
Author Name [facility] [place] [facility] [place] Address [address] [place] [address] Care Team Providers Care Softball Core Molder Name Role Phone CONOR GATES Primary Care [...] NAL I.A.M . BENE Jul 01, 2022 [id number] [phone] SAMY ALEXANDER PATIENT [facility] NATIO NAL I.A.M . BENE Jul 01, 2022 [id number] SAMY ALEXANDER PATIENT Selected Encounter This section includes the information on record at [place] for the Encounter. Date/Time Encounter Type Encounter Description Reason Provider Source November 17, 2024 11:00 AM PSYTX W PT 30 MINUTES PCMHI INDIV ICD-10-CM F41.1 Generalized anxiety disorder TAYLOR HOANG Encounter Template Text not used by [facility] Assessments - Encounter Diagnoses This section includes the primary and secondary diagnoses documented for the Encounter. Date/Time Primary/Secondary Diagnosis Diagnosis Name Provider Source November 17, 2024 12:08 PM PRIMARY Generalized anxiety disorder TAYLOR HOANG [facility] Plan of Treatment: Future Appointments (+ 6 months) and Future Tests (+/- 45 days) The Plan of Treatment section includes future care activities for the patient from all [place] [facility]. This section includes future appointments and future orders which are active, pending or scheduled. Future Appointments This section includes appointments that were scheduled to occur 6 months from the date of the Encounter, up to a maximum of 20 appointments. The data comes from all [place] treatment facilities. Appointment Date/Time Appointment Type Appointme nt Facility Name Dec 04, 2024 07:30 AM AMBULATORY - NONE [facility] Dec 31, 2024 02:00 PM AMBULATORY - NONE [facility] Apr 14, 2025 03:00 PM AMBULATORY - MEDICINE [facility] Active, Pending, and Scheduled Orders This section includes a listing of several types of active, pending, and scheduled orders, including clinic medications orders, diagnostic test orders, procedure orders and consult orders; where the start date of the order is 45 days before the date of the Encounter or 45 days after the date of theEncounter. The data comes from all [facility]. Test Date/Time Test Type Test Details Facility Name Oct 16, 2024 11:54 AM Consult Order [facility] Before [employer] Dec 04, 2024 12:00 AM Imaging - Magnetic Resonance Imaging (MRI) Order MRI SHOULDER RIGHT RIGHT [facility] Lab Results: +/- 30 days of the encounter This section includes the Chemistry and Hematology Lab Results on record with [place] for the patient. Radiology Reports and Pathology Reports are provided separately, in subsequent sections. Lab Results This section contains the Chemistry/Hematology Results that were resulted 30 days before or 30 daysafter the date of the Encounter. Date/Time Source Result Type Result - Unit Interpretation Reference Range Specimen Type Comment Oct 21, 2024 09:19 AM [facility] HGA1C BLOOD Specimen Type: BLOOD No comment entered. Ordering Provider: CONOR GATES Report Released Date/Time: Oct 15, 2024 02:41 PM Reporting Lab: [facility] [address] [facility] [address] Performing Lab: [address] [address] HGA1C 5.1 4.0-6.0 Oct 21, 2024 09:19 AM [facility] HIV COMBO FOURTH GENERATION (STL) SERUM Speci men Type: SERUM No comment entered. Ordering Provider: CONOR GATES Report Released Date/Time: Oct 15, 2024 04:23 PM Reporting Lab: [address] [address] Performing Lab: [address] [address] HIV COMBO FOURTH GENERATION (STL) Nonreactive Nonreactive Oct 21, 2024 09:19 AM [facility] HEP C Ab HCV Ab (L) SERUM Specime n Type: SERUM No comment entered. Ordering Provider: CONOR GATES Report Released Date/Time: Oct 15, 2024 04:23 PM Reporting Lab: [address] [address] Performing Lab: [address] [address] HEP C Ab HCV Ab (L) Nonreactive Nonrea ctive Oct 21, 2024 09:18 AM [facility] HEPATIC FUNTION PANEL (STL) PLASMA Specimen Ty pe: PLASMA No comment entered. Ordering Provider: EVETTE PENALOZA Report Released Date/Time: Oct 21, 2024 08:53 AM Reporting Lab: [address] [address] Performing Lab: [address] [address] PROTEIN 7.3 g/dL 6-8.6 ALBUMIN 4.3 g/dL 3.4-5 TOTAL BILIRUBIN 1.2 mg/dL 0.2-1.2 ALKALINE PHOSPHATASE 98 U/L 40-150 AST/SGOT 34 U/L 5-34 ALT/SGPT 36 U/L 8-40 CONJ. BILIRUBIN 0.5 mg/dL 0-0.5 Social History: Smoking Status (Most current) and Tobacco Use (All prior to encounter date) This section includes the most current, and the historical, smoking and tobacco- related health factors from the [place] facility where the Encounter took place. Current Smoking Status This section includes the most current smoking, or tobacco-related health factor, from the [place] facility where the Encounter took place. Date/Time Current Smoking Status Comment Facil ity Oct 15, 2024 02:00 PM VA-TOBACCO USE FORMER CIGARETTES [facility] Tobacco Use History This section includes a history of the smoking, or tobacco-related health factors, that were collected on or before the date of the Encounter. The data comes from the [place] facility where the Encounter took place. 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 The data comes from all [place] treatment facilities. Date/Time Radiology Report Provider Source Oct 21, 2024 09:03 AM SHOULDER,RIGHT,2 O R MORE VIEWS: DONOVAN ALEXANDER [id number] -1975 M Exm Date: OCT 21, 2024@09:03 Req Phys: CONOR GATES Pat Loc: [facility] PACT 7 PCP (Req'g Loc) Im Loc: [facility] RADIOLOGY SUITE Service: Unknown [address] [address] (Case [id number] COMPLETE) SHOULDER,RIGHT,2 OR MORE VIEWS (RAD Detailed) CPT:72063 Proc Modifiers : RIGHT Reason for Study: acute right shoulder pain Clinical History: Report Status: Verified Date Reported: OCT 21, 2024 Date Verified: OCT 21, 2024 Electronic Coils Supervisor E-Sig:/ES/DARIUS SANCHEZ Report: EXAMINATION: SHOULDER,RIGHT,2 OR MORE [...] symptoms. Primary Interpreting Staff: DARIUS SANCHEZ, RADIOLOGIST (Electronic Coils Supervisor) /DARIUS LYNN [facility] Oct 21, 2024 09:03 AM ELBOW,RIGHT,3+VIEW S: DONOVAN ALEXANDER MITA [id number] -1975 M Exm Date: OCT 21, 2024@09:03 Req Phys: CONOR GATES [facility] (Req'g Loc) Img Loc: [facility] RADI[facility] SUITE Service: Unknown [address] [address] (Case [id number] COMPLETE) ELBOW,RIGHT,3+VIEWS (RAD Detailed) CPT:26192 Proc Modifiers : RIGHT Reason for Study: chronic elbow pain Clinical History: Report Status: Verified Date Reported: OCT 22, 2024 Date Verified: OCT 22, 2024 Electronic Coils Supervisor E-Sig:/ES/AUDIE JENNINGS Report: Case [id number]. ELBOW,RIGHT,3+VIEWS. Comparison: None Findings: There is no evidence of fracture or dislocation. No bone destruction is present. 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 Small elbow joint effusion is noted. Impression: No acute fracture or dislocation. Osteoarthritic changes with small elbow joint effusion. Primary Interpreting Staff: AUDIE JENNINGS MD (Electronic Coils Supervisor) /AUDIE SOLANO [facility] Oct 21, 2024 09:03 AM ELBOW,LEFT, 3+VIEW S: DONOVAN ALEXANDER [id number] -1975 M Exm Date: OCT 21, 2024@09:03 Req Phys: CONOR GATES Loc: [place] 7 [place]CP ([place]g [place] [facility] [place] [facility] RADI[facility] SUITE Service: [address] [address] (Case [id number] COMPLETE) ELBOW,LEFT, 3+VIEWS (RAD Detailed) CPT:15225 Proc Modifiers : LEFT Reason for Study: chronic elbow pain Clinical History: Report Status: Verified Date Reported: OCT 22, 2024 Date Verified: OCT 22, 2024 Electronic Coils Supervisor E-Sig:/ES/AUDIE JENNINGS Report: Case [id number]. ELBOW,LEFT, 3+VIEWS. Comparison: None Findings: There is no evidence of fracture or dislocation. No bone destruction is present. Osteoarthritic changes are noted with osteophyte formation between the capitellum and the trochlea. Small elbow joint effusion is noted. Impression: Mild osteoarthritic changes with small joint effusion. Primary Interpreting Staff: AUDIE JENNINGS MD (Electronic Coils Supervisor) /AUDIE SOLANO [facility] Oct 21, 2024 09:02 AM CHEST X-RAY, 2 VIE WS: DONOVAN ALEXANDER [id number] -1975 M Exm Date: OCT 21, 2024@09:02 Req Phys: EVETTE PENALOZA Loc: [facility] (Req[place]g [place] [facility] [place] [facility] RADI[facility] SUITE Service: Unknown [address] [address] (Case [id number] COMPLETE) CHEST X-RAY, 2 VIEWS (RAD Detailed) CPT:65657 Proc Modifiers : Insp / Exp Reason for Study: chest pain Clinical History: xiphoialgia Report Status: Verified Date Reported: OCT 21, 2024 Date Verified: OCT 21, 2024 Electronic Coils Supervisor E-Sig:/ES/DARIUS SANCHEZ Report: EXAMINATION: CHEST X-RAY, 2 VIEWS DATE: 10/21/2024 9:02 AM HISTORY: chest pain. COMPARISON: None. VIEWS: PA and lateral FINDINGS: Heart size is normal. Lungs are clear. No pleural effusion. Impression: No active disease. Primary Interpreting Staff: DARIUS SANCHEZ, RADIOLOGIST (Electronic Coils Supervisor) /[facility] Encounter Notes: All associated encounter notes This section contains the clinical notes associated to the Encounter. Date/Time Encounter Note(s) Provider Source November 17, 2024 11:09 AM PSYCHOLOGY OUTPATI ENT NOTE: LOCAL TITLE: PRIMARY CARE PSYCHOLOGY NOTE ST STANDARD TITLE: PSYCHOLOGY OUTPATIENT NOTE DATE OF NOTE: NOVEMBER 17, 2024@11:09 ENTRY DATE: NOVEMBER 17, 2024@11:09:42 AUTHOR: TAYLOR HOANG EXP COSIGNER: URGENCY: STATUS: COMPLETED Follow-up Template NAME: DONOVAN ALEXANDER DATE OF : Dec TIME SPENT WITH PATIENT: 30 minutes DIAGNOSIS BEING TREATED: IRVING CPT Code: 37283 NATURE OF ENCOUNTER: follow up visit SESSION FORMAT: [ ] [id number] [ x] Video Telehealth [[[although 's encounter is listed as a phone appointment [place] was seen via VVC. On this day this provider does not have a bookable VVC grid] [ ]Phone Confirmed 's location and phone number for virtual appointment. [x ]Yes [ ]N/A NOTE: Use separate CVT template, if appropriate SESSION NUMBER: 4 INTERVENTION/TREATMENT PROVIDED [ x] Rapport Building [asked open ended questions] [ x] Shared decision-making regarding goals of care [ensure listed goal still applicable] [x ] Supportive Psychotherapy [x ] Solution-Focused Psychotherapy [ ] Insight Oriented Psychotherapy [ ] Cognitive Behavioral Therapy Skills [ ] Acceptance and Commitment Therapy Skills [ ] Interpersonal Therapy Skills [ ] Motivational Interviewing [discussed readiness for change in the context of stated goal progress] [ ] Culture-based Interventions [ ] Health Psychology Interventions [ ] Evidence Based Psychotherapy: [ ] Psychosocial Interventions [ ] Other: Description of Interventions Provided by Therapist: Covered Problem Solving Skills- externalizing, simplifying and visualizing RELEVANT HISTORICAL DEVELOPMENTS SINCE LAST CONTACT: NOTE: Describe relevant historical developments below Ananda reported he has yet to follow up with pcp regarding concerns of raging and testostrone. He will follow up via secure messenger, but was informed calling the front line supervisor, might be more beneficial. But indicated he does not feel as if anything has changed. However this provider pointed out his report of no longer raging at home and in the classroom, and his ability to feel better rested and less stress due to adjusting his workout schedule and implementing diaphragmatic breathingwere all indications that he is making positive changes which have had positive impact. [place] indicated he felt as if he is just better at adjusting to the changes. This provider worked on increasing skill usage to include toolkit 1 from the problems are moving forward protocol. Discussed in detail the skills of externalizing, simplifying, and visualizing. Mitzi was receptive to skills being taught and examples of how they can best be applied. Mitzi was able to give examples of how he uses each of these in some capacity currently, and ways in which they can be beneficial moving forward. In follow-up to the homework of setting a daily intention, ananda reported his intention has just centered around diet and exercising which he has already been doing anyway. Discussed following up with community care to select a provider that offers evening and weekend hours so that he and his are able to start marriage and family counseling. Lalit indicated he plans to do so. This provider was able to identify the most recent therapist also called community care to explain what Mitzi's needs are at this time. This provider requested a 30-day CPAP report which of late has indicated an increase in AHI. This provider will tag the sleep physician to inquire if any adjustments should be made at this time, or if the current settings are sufficient. [It should be noted whenever does travel away from home, he uses his old CPAP to ensure he does not accidentally damage his new CPAP or dirty it in any way. Hence 5 day's of usage not documented.] ASSESSMENT MEASURES USED: [ ] Measure in Mental Health Canvas Shrinker. See accompanying Mental Health Diagnostic Study for details. [ x] Measure(s) sent via [facility], electronically following visit. [place] agrees to asynchronous electronic administration; when returned, measure results will be included in a note or addendum in CPRS [ ] Other Measures: Measure: Score: Measure: Score: [ ] N/A: Not administered this session Date/Score of last administration: [ ]Functional/Symptom Assessment: Symptom(s)/Function(s) tracked by Changes in frequency, intensity or duration since last visit: Collaboratively discussed outcomes related to assessment and treatment progress and measures will continue to be monitored. MEASURABLE TREATMENT GOALS FOR THIS EPISODE OF CARE: 1. GOAL/OBJECTIVES: i don't' want to be an emotional train wreck anymore, and needy with my . The goal would be to increase 's coping skills for his emotional dysregulation. PROGRESS TOWARDS GOAL: Vet noted in today's session having progress with this goal as stated above. 2. GOAL/OBJECTIVES: PROGRESS TOWARDS GOAL: 3. GOAL/OBJECTIVES: PROGRESS TOWARDS GOAL: RESPONSE TO INTERVENTIONS: Veterans participation/engagement: [x ]The participated actively in the current interventions. [ ]Other: The continues to consent to the current plan of care: Yes Comments: RISK ASSESSMENT: [x ] NO CHANGE IN RISK FACTORS Related to Suicide or Homicide. did not report any current suicidal/homicidal ideation, plan, or intent. did not appear to be at imminent risk for suicide or homicide at this time and is considered sustainable at the current level of care. [ ] NEW/UPDATED RISK ASSESSMENT: -RELEVANT RISK AND PROTECTIVE FACTORS: -IDEATION: [ ] [place] denied current suicidal or homicidal ideation, plan, or intent. [ ] Suicidal or homicidal ideation/behavior WAS identified: -CLINICAL JUDGMENT AND DISPOSITION: [ ] In consideration of relevant risk and protective factors, the [place] did NOT appear to be at imminent risk for suicide or homicide at this time and IS sustainable at the current level of care. [ ] IS considered to be at INCREASED RISK for suicide or homicide based upon: -Actions/interventions taken to address risk and prevent harm include: -Emergency protocols initiated were: ASSIGNED WORK: This provider to send link for problem-solving moving forward online course. This provider to alert sleep physician to review most recent 30-day CPAP report. RTC submitted for follow-up. to follow-up with community care regarding new marriage and family counselor. COLLABORATIVE RECOMMENDATIONS/PLAN: Collaboratively discussed outcomes related to assessment and treatment progress. Based on this discussion: [x ] No changes to plan of care. [place] expressed agreement with therapy tasks and byrlfz-kz-vbdjvw plan. [ ] Using shared decision making, [place] and provider agreed to the following change in plan: Educated on the risks, benefits, and possible complications related to changes to treatment plan. agreed to proceed with the change. [ ]YES [ ]NO It should be noted, this note was typed using a dictation software and there may be misspellings by mistake, as a result. [facility] Video [facility] (VVC)/Video to home template v1.5 Visit conducted by synchronous telehealth. [place] Location/emergency number confirmed. Environment surveyed and all participants identified. Virtual conference room locked. VVC/Video to home appointment information: The following items were reviewed: - The nature of telehealth, its benefits, and risks. - Confidentiality and its limits. - The importance of having a confidential location for the service. - The emergency plan. - The appointment should be treated like an in person appointment (no smoking or driving during session, showing up fully dressed, etc.) *The Virtual Medical Room was locked for this encounter. *A survey of the environment was conducted and it is appropriate to conduct a VVC appointment. *Confirmed 's Non-VA location for this appointment: 's Home [address] [place], [place] [id number] Address and phone number verified with [place]. Address: Phone: [place] does not have an emergency contact. * was notified of right to decline Telehealth services and eligibility for other options. [place] consented to be seen via VVC. EMERGENCY PLAN In the event of an emergency, the [place] or family will call emergency services, if capable. The Teleprovider will remain in the virtual medical room until emergency response arrives and handoff to emergency services is complete. If is unable to make emergency call, the Teleprovider is to call the national E911 service at [phone] and ask to be connected to emergency services for the [place]'s location. [place]'s Crisis Line: Dial 988 then press 1, or text [phone] Office of Connected Care Helpdesk ([facility]): [phone] or [phone] Laterality (patient's right and/or left side) confirmed prior to intervention during video visit. Verified Provider's location and contact information for this appointment: [address] [phone] It should be noted, this note was typed using a dictation software and there may be misspellings by mistake, as a result. /stacy/ Taylro Hoang Psy.D. Staff Psychologist Signed: 11/17/2024 12:08 TAYLOR HOANG [facility]
--- OUTSIDE RECORDS SUMMARY | 2025-01-31 15:29 | XMS_ITS | Encounter Summary ---
Author Name [facility] [place] [place] Organization [place] Address [address] [place] [address] Care Team Providers Care Blast Furnace Auxiliaries Supervisor Name Role Phone CONOR GATES Primary [...] NAL I.A.M . BENE Jul 01, 2022 [id number] [phone] MAGANSAMY LAMBERT ANTAL PATIENT [facility] NATIO NAL I.A.M . BENE Jul 01, 2022 [id number] [phone] SAMY ALEXANDER ANTAL PATIENT Selected Encounter This section includes the information on record at [place] for the Encounter. Date/Time Encounter Type Encounter Description Reason Pro vider Source IHE Encounter Template Text not used by [facility]
--- OUTSIDE RECORDS SUMMARY | 2025-01-31 15:29 | XMS_ITS | Clinical Summary ---
Author Organization [facility] Address [address] [place] [address] Care Team Providers Care Manager In Training Name Role Phone Vimal Soler MD Primary Care Provider [phone] Source Comments [facility],non-owned Affiliates and Associated Physician Practices is amultiple site organization consisting of ambulatory clinics and hospital sitesin [place], [place], [place] and [place]. This disclosure is being madepursuant to the Care Everywhere program and may not contain all information available regarding this patient. Last updated 18.[facility] Allergies Active Allergy Reactions Criticality Noted Date Comments Fire Ant Anaphylaxis High 12/18/2018 Medications * Be aware that medications may not be up to date on this document. Alwaysverify current medications with the patient. aspirin EC (ECOTRIN) 81 MG tablet Take 81 mg by mouth 8 Active omeprazole (PRILOSEC) 20 MG capsule Take 1 capsule by mouth 7 Active NA-K-MG sulfates (SUPREP) 17.5-3.13-1.6 GM/177ML solution Drink 1 bottle of prep followed by 32oz liquid at 5pm on 04/07/19. 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 02/15/2019 Overview (06/12/2021): SCHULER risks and prior heavy alcohol use 10/08/16 US: fatty liver, patent vessels, no focal lesions 08/24/19 Fibroscan CAP 321, LSM 3.8 kPa 02/01/21 US: normal-appearing liver, no ascites Obesity 08/31/2014 Gonzáles esophagus Overview (08/27/2019): 04/08/19 EGD: LA class B GERD changes, no appearance of Gonzáles's Esophageal reflux Immunizations Immunization Administration Dates Next Due Covid Moderna primary monovalent 12+ yr 0.5mL ,08/29/2020 Social History Tobacco Use Types Packs/Day Years Used Date Smoking Tobacco: Former Smokeless Tobacco: Current Chew Alcohol Use Standard Drinks/Week Comments Yes 0 (1 standard drink = 0.6 oz pure alcohol) 2-3 drinks/week. prior heavy use. Sex and Gender Information Value Date Recorded Sex Assigned at Not on file Legal Sex Male 11:01 AM CDT Gender Identity Not on file Sexual Orientation Not on file Last Filed Vital Signs Vital Sign Reading Time Taken Comments Blood Pressure 143/97 06/12/2021 11:13 AM LION TAMER Pulse 91 06/12/2021 11:13 AM LION TAMER Temperature 37 C (98.6 F) 08/24/2019 7:54 AM LION TAMER Respiratory Rate 14 06/12/2021 11:13 AM LION TAMER Oxygen Saturation 97% 06/12/2021 11:13 AM LION TAMER Inhaled Oxygen Concentration - - Weight 140.6 kg (310 lb) 06/12/2021 11:13 AM LION TAMER Height 188 cm (6' 2) 06/12/2021 11:13 AM LION TAMER Body Mass Index 39.8 06/12/2021 11:13 AM LION TAMER Plan of Treatment Health Maintenance Due Date Last Done Comments COLOGUARD (AGES 45-75) - COLON CA SCREENING 1977 CT COLONOGRAPHY - COLON CA SCREENING 1975 FIT - COLON CA SCREENING 1975 FLEX SIG - COLON CA SCREENING 1975 LIPID TESTING 1975 HIV SCREENING 01/17/1992 HEPATITIS C SCREENING 01/12/1995 DTAP/TDAP/TD VACCINES (1 - Tdap) 01/17/1996 HEPATITIS B VACCINE (1 of 3 - 19+ 3-dose series) 01/17/1996 PNEUMOCOCCAL VACCINE (1 of 2 - PCV) 01/17/1996 SCREENING FOR DIABETES 01/31/2024 , 06/23/2017, 06/23/2017, Additional history exists COVID-19 VACCINE (3 - season) 2024 09/26/2020, 08/29/2020 DEPRESSION SCREENING 07/01/2024 INFLUENZA VACCINE (#1) 2025 ZOSTER VACCINE (1 of 2) 2027 COLON MONITORING 04/08/2029 04/08/2019, 04/08/2019 COLONOSCOPY - COLON CA SCREENING 04/08/2029 04/08/2019, 04/08/2019 Colorectal Cancer Screening 04/08/2029 HIB VACCINE Aged Out No longer eligi ble based on patient's age to complete this topic HPV VACCINE Aged Out No longer eligi ble based on patient's age to complete this topic MENINGOCOCCAL (Group B) VACCINE SHARED DECISION-MAKING Aged Out No longer eligible based on patient's age to complete this topic MENINGOCOCCAL GROUPS A/C/Y/W VACCINE Aged Out No longer eligible based on patient's age to complete this topic Goals Goal Patient Goal Type Associated Problems Recent Progress Patient-Stated? 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 BUN 15 7 - 25 mg/dL [facility] Creatinine 0.90 0.60 - 1.35 mg/dL [facility] eGFR by MDRD 104 > OR = 60 mL/min/1. 73m2 [facility] eGFR by MDRD 120 > OR = 60 mL/min/1. 73m2 [facility] BUN/Creatinine Ratio NOT APPLICABLE 6 - 22 (calc) [facility] Sodium 139 135 - 146 mmol/L [facility] Potassium 4.3 3.5 - 5.3 mmol/L [facility] Chloride 107 98 - 110 mmol/L [facility] CO2 26 20 - 32 mmol/L [facility] Calcium 9.1 8.6 - 10.3 mg/dL [facility] Protein Total 6.6 6.1 - 8.1 g/dL [facility] Albumin 4.1 3.6 - 5.1 g/dL [facility] Globulin Total 2.5 1.9 - 3.7 g/dL (calc) [facility] Albumin/Globuli n Ratio 1.6 1.0 - 2.5 (calc) [facility] Bilirubin Total 0.7 0.2 - 1.2 mg/dL [facility] Alkaline Phosphatase 64 36 - 130 U/L [facility] AST 27 10 - 40 U/L [facility] ALT 42 9 - 46 U/L [facility] Comment: Test Performed at: [facility] [address] [id number] BRUCE MARIE DO,MPH Blood BLOOD SPECIMEN / Unknown 01/30/2021 8:06 AM CDT 01/30/2021 8:07 AM CDT us Kermit Polanco MD LAB - CHEMISTRY OR DERABLES Final Result [facility] [address] [place] [address] * ENDOSCOPY, COLON, DIAGNOSTIC (04/08/2019 12:53 PM CDT) Report Endoscopy POC Endoscopy Department Report __ _ Patient Name: Mohan Olivier Procedure Date: 04/08/2019 12:53 PM Date of : 1975 Classification: Outpatient Gender: Male Ethnicity: Not or Race: White __ _ Providers: Monik Curiel MD, Jeremy Espinosa (Fellow) Referring MD: Procedure: Upper GI endoscopy Indications: Suspected Gonzáles's esophagus, Cirrhosis with suspected esophageal varices Medications: Monitored Anesthesia Care Description of Procedure: Pre-Anesthesia Assessment: - Prior to the procedure, a History and Physical was performed, and patient medications and allergies were reviewed. The patient's tolerance of previous anesthesia was also reviewed. The risks and benefits of the procedure and the sedation options and risks were discussed with the patient. All questions were answered, and informed consent was obtained. Prior Anticoagulants: The patient has taken no previous anticoagulant or antiplatelet agents. ASA Grade Assessment: III - A patient with severe systemic disease. After reviewing the risks and benefits, the patient was deemed in satisfactory condition to undergo the procedure. After obtaining informed consent, the endoscope was passed under direct vision. Throughout the procedure, the patient's blood pressure, pulse, and oxygen saturations were monitored continuously. The GIF-H190 was introduced through the mouth, and advanced to the second part of duodenum. The upper GI endoscopy was accomplished without difficulty. The patient tolerated the procedure well. Findings: Esophagogastric landmarks were identified: the Z-line was found at 41 cm, the gastroesophageal junction was found at 41 cm and the site of hiatal narrowing was found at 42 cm from the incisors. Two columns of non-bleeding small (< 5 mm) varices were found in the lower third of the esophagus. They were 3 mm in largest diameter. No stigmata of recent bleeding were evident and no red lalita signs were present. LA Grade B (one or more mucosal breaks greater than 5 mm, not extending between the tops of two mucosal folds) esophagitis with no bleeding was found. There were two thin linear erosions extending up from the GE junction. No clear evidence of Gonzáles's esophagus. The stomach was normal. No gastric varices. The examined duodenum was normal. Estimated Blood Loss: Estimated blood loss: none. Complications: No immediate complications. Impression: - Esophagogastric landmarks identified. - Non-bleeding small (< 5 mm) esophageal varices. - LA Grade B reflux esophagitis. - Normal stomach. - Normal examined duodenum. - No specimens collected. Recommendation: - Patient has a contact number available for emergencies. The signs and symptoms of potential delayed complications were discussed with the patient. Return to normal activities tomorrow. Written discharge instructions were provided to the patient. - Resume previous diet. - Continue present medications. Proton pump inhibitor daily. - Repeat upper endoscopy as per pulpit operator for surveillance. - Return to GI clinic as previously scheduled. Attending Participation: I was present and participated during the entire procedure, including non-ellison portions. Procedure Code(s): --- Professional --- 10372, Esophagogastroduode noscopy, flexible, transoral; diagnostic, including collection of specimen(s) by brushing or washing, when performed (separate procedure) Diagnosis Code(s): --- Professional --- K74.60, Unspecified cirrhosis of liver I85.10, Secondary esophageal varices without bleeding K21.0, Gastro-esophageal reflux disease with esophagitis CPT copyright 2016 [employer]. All rights reserved. The codes documented in this report are preliminary and upon hospital coder review may be revised to meet current compliance requirements. ___ Monik Curiel MD 04/08/2019 2:01:09 PM This report has been signed electronically. Note Initiated On: 04/08/2019 12:53 PM Number of Addenda: 0 [facility] [address] [place] [address] [facility] 04/08/2019 12:5 3 PM CDT Monik Curiel MD GI PROCEDURE ORDERABLES Ed ited Result - Final [facility] [employer] from Last 3 Months or Most Recently Relevant to Health Maintenance Insurance [facility] Care Teams Manager In Training Relationship Specialty Start Date End Date Vimal Soler MD PCP - General Family Medicine 12/04/18
--- OUTSIDE RECORDS SUMMARY | 2025-01-31 15:29 | XMS_ITS | Encounter Summary ---
Author Organization [facility] Address [facility] [place] [address] Care Team Providers Care Concrete Vault Maker Name Role Phone Miguel A Coleman MD Primary Care Provider [phone] Amadeo Cole MD Unavailable [phone] Encounter Details Date Type Department Care Team (Late st Contact Info) Description 10/13/2012 Abstract [facility] CONVERSION [address] [place] [address] , Lori Pete MD Social History Tobacco Use Types Packs/Day Years [...] on filedocumented in this encounter Care Teams Concrete Vault Maker Relationship Specialty Start Date End Date Miguel A Coleman MD [address] [place] [address] [place] [address] PCP - General FAMILY PRACTICE 05/31/17 11/26/18 Amadeo Cole MD [address] [address] [place] Graduate Student Instructor CARDIOVASCULAR DISEASE 07/02/17 documented as of this encounter
[2025-01-31 15:30] VITALS: BP 151/91; PULSE 71; RESP 18; TEMP 36.6; O2SAT 97
--- NOTE | 2025-01-31 15:46 | ED.WOUNDLAC ---
HPI - Wound/Laceration General Chief Complaint: Wound/Laceration Stated Complaint: left thumb lac Time Seen by Provider: 01/31/25 15:38 History of Present Illness HPI narrative: Patient is a 50-year-old male who presents to the ER after sustaining a laceration to his left thumb. He reports he was using a knife and it slipped. Patient reports the knife ?sliced deep. He reports the bleeding has continued even though he has been putting pressure on it. Patient reports his last tetanus shot was approximately 3 years ago. He denies any pain in the thumb this time. Patient denies any pertinent medical history relevant to this ER visit. He denies any decreased range of motion, trauma to his hand, or snuffbox tenderness. Related Data Home Medications ?Medication ?Instructions ?Recorded ?Confirmed ?Last Taken ?Type amoxicillin 875 mg tablet 875 mg PO Q12H 02/13/22 02/27/22 Unknown History sulfamethoxazole 800 1 tablet PO Q12H 02/13/22 02/27/22 Unknown History mg-trimethoprim 160 mg tablet (Bactrim DS) Allergies Allergy/AdvReac Type Severity Reaction Status Date / Time No Known Allergies Allergy Verified 01/31/25 15:29 Review of Systems Review of Systems: All systems reviewed & are unremarkable except as noted in HPI and below PMFSH Past Medical History Medical History Hx of blood clots 10 years ago Surgical History Surgical History H/O wisdom tooth extraction History of ankle surgery Family History Family History Father Diabetes mellitus Mother Hypertension Social History Social History Smoking packs per day: 0.5 Smoking cigarettes per day: 10.0 Years smoked: 27 Smoking pack-years: 13.50 Smoking status: Current every day smoker Tobacco type: cigarettes Alcohol intake: current Living arrangements: with family Occupation/Education: occupation 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 HEAD: Normocephalic, atraumatic. NECK: Supple. No adenopathy, no masses. RESPIRATORY: Airway patent, respirations nonlabored. Clear to auscultation bilaterally, no rales, rhonchi, wheezing. CARDIOVASCULAR: Regular rate and rhythm without murmurs, rubs, or gallops. Peripheral pulses 2+ and equal bilaterally. ABDOMINAL: Soft, nontender, nondistended, no hepatosplenomegaly. Normoactive BS. MUSCULOSKELETAL: Moves all extremities. Strength/ROM intact without gross deformities. SKIN: Warm, dry, normal color. No rashes. Left thumb laceration, linear, 1.5 cm, continued oozing from site NEURO: A&O X3. Speech clear. Cranial nerves II-XII intact. No ataxic movements. PSYCHIATRIC: Appropriate mood and affect. Normal interaction. Course Vital Signs Vital signs: Vital Signs Temperature 36.6 C 01/31/25 15:30 Pulse Rate 71 01/31/25 15:30 Respiratory Rate 18 01/31/25 15:30 Blood Pressure 151/91 H 01/31/25 15:30 Pulse Oximetry 97 01/31/25 15:30 Temperature 36.6 C 01/31/25 15:30 Pulse Rate 71 01/31/25 15:30 Respiratory Rate 18 01/31/25 15:30 Blood Pressure 151/91 H 01/31/25 15:30 Pulse Oximetry 97 01/31/25 15:30 Procedures Laceration Laceration 1: Date: 01/31/25 Time: 16:54 Site: hand Side (If applicable): left Size (cm): 1.5 Description: linear Depth: simple, single layer Local Anesthetic: lidocaine 1% Amount of anesthesia used (mL): 3 Pre-repair: irrigated extensively ====== Skin Level ====== Skin layer closed with: nylon Size (cm): 5-0 Number of sutures: 3 Technique: simple, interrupted ====== Subcutaneous Layer ====== ====== Muscle Layer ====== ====== Tendon Layer ====== MDM - Wound/Laceration MDM Narrative Medical decision making narrative: Patient is a 50-year-old male who presents to the ER after sustaining a laceration to his left thumb. He reports he was using a knife and it slipped. Patient reports the knife ?sliced deep. He reports the bleeding has continued even though he has been putting pressure on it. Patient reports his last tetanus shot was approximately 3 years ago. He denies any pain in the thumb this time. Patient denies any pertinent medical history relevant to this ER visit. He denies any decreased range of motion, trauma to his hand, or snuffbox tenderness. Labs Ordered: None necessary Imaging Ordered: Left hand x-ray Medications Ordered: Lidocaine 1% Results: Patient's left hand x-ray shows no acute abnormalities Diagnosis: Left thumb laceration Patient Education/Shared MDM: Results of imaging shared with patient. Three 5.0 Ethilon sutures were placed in patient's left bone. Patient tolerated procedure well. He was advised to follow-up with their PCP in 10-14 days for suture removal. He will not be discharged home with any new prescriptions. Strict return precautions provided. Patient verbalized understanding and is in agreement with plan. Vital signs stable at time of discharge. All questions answered.: Differential Diagnosis Differential diagnosis: Likely laceration, abrasion and avulsion of skin Imaging Data Attestation: I personally reviewed and interpreted this imaging study as follows: Radiologist's impression: Impressions Hand X-Ray 01/31/25 16:24 IMPRESSION: No acute osseous finding in the left hand. Discharge Plan Discharge Clinical Impression: Laceration, Injury of hand, left Patient Disposition: Home Condition: Stable Instructions: Antibiotic Form, Care For Your Stitches (ED), Laceration (ED) Additional Instructions: Please return to the ER with any worsening symptoms. Follow-up with primary care provider in 10-14 days for suture removal. Try to keep the area clean and dry. Patient Language: South Korean Prescriptions: No Action amoxicillin 875 mg tablet 875 mg PO Q12H sulfamethoxazole-trimethoprim [Bactrim DS] 800-160 mg tablet 1 tablet PO Q12H Follow-up/Referrals: Kayleigh Girard DO [Physician] - Time of Disposition: 16:53
[2025-01-31] MEDS: LIDOCAINE 1% LOCAL INJ 10 ML VIAL INFILTRATE (16:27)
--- OUTSIDE RECORDS SUMMARY | 2025-01-31 16:30 | XMS_ITS | Continuity of Care Document ---
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 It does not include entries that were removed or entered in error. Problem Status Onset Date Problem Type Date of Resolution Comments Source Brace Inactive Condition Brace DoD PLANTAR FASCIITIS Inactive Condition PL ESMER FASCIITIS DoD CLOSED FRACTURE OF NAVICULAR BONE (FOOT) Active Condition CLOSED FRACTURE OF NAVICULAR BONE (FOOT) DoD UPPER RESPIRATORY INFECTION Inactive Condition UPPER RESPIRATORY INFECTION [facility] Alcoholic fatty liver Active Condition [facility] Current drinker Active Condition [facility] Exposure to potentially hazardous substance Active Condition [facility] Foot pain Active Condition [facility] [place] - Generalised anxiety disorder Active Condition [facility] GERD - Gastro-Esophageal Reflux Disease ([facility] [id number]) Active Condition [facility] HTN - Hypertension ([facility] [id number]) Active Condition [facility] Hyperlipidemia ([facility] [id number]) Active Condition [facility] Obstructive Sleep Apnea of Adult ([facility] [id number]) Active Condition [facility] Tobacco User ([facility] [id number]) Active Condition [facility] Diagnosis: ICD-10-CM E66.811 Obesity, class 1 Active Diagnosis [facility] Diagnosis: ICD-10-CM I10 Essential (primary) hypertension Active Diagnosis [facility] Diagnosis: ICD-10-CM M25.511 Pain in right shoulder Active Diagnosis [facility] Diagnosis: ICD-10-CM F41.1 Generalized anxiety disorder Active Diagnosis [facility] Diagnosis: ICD-10-CM E66.812 Obesity, class 2 Active Diagnosis [facility] Diagnosis: ICD-10-CM K21.9 Gastro-esophageal reflux disease without esophagitis Active Diagnosis [facility] Diagnosis: ICD-10-CM Z63.0 Problems in relationship with spouse or partner Active Diagnosis [facility] Diagnosis: ICD-10-CM G47.33 Obstructive sleep apnea (adult) (pediatric) Active Diagnosis [facility] Diagnosis: ICD-10-CM Z01.818 Encounter for other preprocedural examination Active Diagnosis [facility] Medications Combined list of outpatient medications from Department of Defense and Veterans Affairs facilities.Medications provided include 1) outpatient medications from the last 15 months, and 2) patient-reported medications. Medication Details Route Status Patient Instructions Prescription Expires Prescription Number Last Dispense Date Ordering Provider Order Date Order Qty Source ASCORBIC ACID TAB TAKE BY MOUTH ONCE A DAY ORAL ACTIVE CONOR GATES 2024 [facility] ATORVASTATI N [place] 40MG TAB TAKE ONE-HALF TABLET BY MOUTH EVERY EVENING FOR HIGH CHOLESTE ROL ORAL ACTIVE 10/16/2025 [id number] 5 CONOR GATES 2024 45 [facility] ATORVASTATI N CA 40MG TAB TAKE ONE-HALF TABLET BY MOUTH EVERY EVENING FOR HIGH CHOLESTE ROL ORAL DISCONT INUED 08/04/2025 [id number] 5 CONOR GATES 2024 45 [facility] ATORVASTATI N CA 40MG TAB TAKE ONE-HALF TABLET BY MOUTH EVERY EVENING FOR HIGH CHOLESTE ROL ORAL DISCONT INUED 08/12/2024 [id number] 4 CONOR GATES 2023 45 [facility] CALCIUM POLYCARBOPH [place] 625MG TAB TAKE TWO TABLETS BY MOUTH ONCE A DAY ORAL ACTIVE 04/23/2025 [id number] Pelon PENALOZA A 2023 180 [facility] DICLOFENAC NA 1% GEL,TOP APPLY 2 GM TO AFFECTED AREA(S) FOUR TIMES A DAY NEEDED NO MORE THAN 16 GM/DAY TO ANY LOWER EXTREMIT Y JOINT. NO MORE THAN 8 GM/DAY TO ANY UPPER EXTREMIT Y JOINT. MAX 32GM/DAY OVER ALL JOINTS.( MEASURE DOSE WITH RULER INSIDE BOX) STEPHANIE Wheat ACTIVE 12/09/2025 [id number] ABDULKADIR GAITAN A 2024 300 [facility] EPINEPHRINE (EQV-ADRENA CLICK) 0.3MG/0.3ML INJECTOR INJECT 1 PEN (0.3MG/0 .3ML) INTRAMUS CULARLY ONE-TIME INTRAM USCULA R DISCONT INUED 12/15/2024 [id number] STACY GUILLEN 2024 2 [facility] EPINEPHRINE (EQV-ADRENA CLICK) 0.3MG/0.3ML INJECTOR INJECT 1 PEN (0.3MG/0 .3ML) INTRAMUS CULARLY ONE-TIME INTRAM USCULA R 12/15/2024 [id number] GEORGIA CADE 2024 2 [facility] IRBESARTAN 75MG TAB TAKE ONE TABLET BY MOUTH ONCE A DAY FOR HIGH BLOOD PRESSURE ORAL PROVIDE R HOLD 10/16/2025 [id number] CONOR GATES 2024 90 [facility] IRBESARTAN 75MG TAB TAKE ONE TABLET BY MOUTH ONCE A DAY FOR HIGH BLOOD PRESSURE ORAL DISCONT INUED 10/17/2024 [id number] 5 CONOR GATES 2023 90 [facility] LOPERAMIDE HCL 2MG CAP TAKE TWO CAPSULES BY MOUTH ONCE A DAY NEEDED FOR DIARRHEA ORAL ACTIVE 07/10/2025 [id number] Pelon PENALOZA 2024 30 [facility] MELATONIN CAP/TAB TAKE BY MOUTH AT BEDTIME NEEDED ORAL ACTIVE CONOR GATES 2024 [facility] MULTIVITAMI NS CAP/TAB TAKE ONE TABLET BY MOUTH ONCE A DAY ORAL ACTIVE CONOR GATES 2024 [facility] NICOTINE POLACRILEX 4MG TAB,CHEWG GUM CHEW 1 PIECE OF GUM BY MOUTH EVERY 4 HOURS NEEDED FOR TOBACCO CESSATIO N CHEW GUM UNTIL TINGLING SENSATIO N, THEN PARK THE GUM BETWEEN CHEEK AND GUM AREA. REPEAT (RE-CHEW ) WHEN TINGLING STOPS. ORAL ACTIVE 10/16/2025 [id number] CONOR GATES 2024 110 [facility] NICOTINE POLACRILEX 4MG TAB,CHEWG GUM CHEW 1 PIECE OF GUM BY MOUTH EVERY 4 HOURS NEEDED FOR TOBACCO CESSATIO N CHEW GUM UNTIL TINGLING SENSATIO N, THEN PARK THE GUM BETWEEN CHEEK AND GUM AREA. REPEAT (RE-CHEW ) WHEN TINGLING STOPS. ORAL DISCONT INUED 10/17/2024 [id number] 5 CONOR GATES 2023 110 [facility] PANTOPRAZOL E NA 40MG TAB,EC TAKE ONE TABLET BY MOUTH EVERY MORNING BEFORE A MEAL FOR GASTROES OPHAGEAL REFLUX DISEASE TAKE 30 MINUTES BEFORE MEAL(S) ORAL 08/12/2024 [id number] MARAL GAITAN RISTOPHER M 2023 90 [facility] Allergies, Adverse Reactions, Alerts Combined list of allergies from Department of Defense and Veterans Affairs facilities. It does not include entries that were removed or entered in error. Substance Category Reaction Severity Reaction type Status Date Reported Comments Source FIRE ANT VENOM Propensity to adverse reaction (finding) Anaphylaxis active 3 [facility] Immunizations Combined list of available immunizations from the Department of Defense and Veterans Affairs facilities. Immunization Series Date Given Administered By Site Reaction Lot Number CVX Code Drug Wet Roller Status Comments Source COVID-19 (PFIZER), MRNA, LNP-S, PF, PIPPA-SUCROSE, 30 MCG/0.3 ML (AGES 12+ YEARS) 2024 LISA CLARKE H R RIGHT DELTO ID [id number] 309 complet ed [facility] INFLUENZA, SPLIT VIRUS, TRIVALENT, PF 2024 ELOY CLARKEIT H R LEFT DELTO ID [id number] 140 complet ed [facility] PNEUMOCOCCAL POLYSACCHARID E PPV23 2024 VINCEEDIT H R LEFT DELTO ID [id number] 33 complet ed [facility] TDAP 2023 ANAT BHANDARI JAYCE RIGHT DELTO ID [id number] 115 complet ed Booster for Series, [facility] COVID-19 (MODERNA), MRNA, LNP-S, PF, 50 MCG/0.5 ML (AGES 12+ YEARS) 1 2022 TOM GARCIAPAWEL A L LEFT DELTO ID [id number] 312 complet ed [facility] INFLUENZA, INJECTABLE, QUADRIVALENT, PRESERVATIVE FREE 2022 TOM GARCIAIC A L RIGHT DELTO ID [id number] 150 complet ed [facility] INFLUENZA, UNSPECIFIED FORMULATION 2021 88 complet ed HISTORICA L INFORMATI ON - SOURCE UNSPECIFI ED, [facility] COVID-19 (MODERNA), MRNA, LNP-S, PF, 100 MCG/0.5ML DOSE OR 50 MCG/0.25ML DOSE 3 2021 207 complet ed HISTORICA L INFORMATI ON - FROM PATIENT'S WRITTEN RECORD, [facility] COVID-19 (MODERNA), MRNA, LNP-S, PF, 100 MCG/0.5ML DOSE OR 50 MCG/0.25ML DOSE 2 2020 207 complet ed HISTORICA L INFORMATI ON - FROM PATIENT'S WRITTEN RECORD, [facility] COVID-19 (MODERNA), MRNA, LNP-S, PF, 100 MCG/0.5ML DOSE OR 50 MCG/0.25ML DOSE 1 2020 207 complet ed HISTORICA L INFORMATI ON - FROM PATIENT'S WRITTEN RECORD, [facility] Results Combined list of recent chemistry, hematology and other laboratory results from Department of Defense and Veterans Affairs, ranging from 15 months to all on record, depending upon the facility. Order Name Results Value Reference Range Date Interpretation Specimen Comments Source HEP C Ab HCV Ab (STL) HEPATITIS C VIRUS AB [PRESENCE] IN SERUM Nonreact margarita 10/21 Specimen Type: SERUM No comment entered. Ordering Provider: SIMONE GATES Report Released Date/Time: Oct 15, 2024 04:23 PM Reporting Lab: [facility] [address] [facility] [address] Performing Lab: [address] [address] [facility] HGA1C HEMOGLOBIN A1C/HEMOGL OBIN.TOTAL IN BLOOD 5.1 4.0 - 6.0 10/21 Specimen Type: BLOOD No comment entered. Ordering Provider: SIMONE GATES Report Released Date/Time: Oct 15, 2024 02:41 PM Reporting Lab: [place] [address] [facility] [address] Performing Lab: [address] [phone] [facility] HIV COMBO FOURTH GENERATI ON (STL) HIV 1+2 AB+HIV1 P24 AG [PRESENCE] IN SERUM OR PLASMA BY IMMUNOASSA Y Nonreact margarita 10/21 Specimen Type: SERUM No comment entered. Ordering Provider: SIMONE GATES Report Released Date/Time: Oct 15, 2024 04:23 PM Reporting Lab: [place] [address] [facility] [address] Performing Lab: [address] [phone] [place] [address] [facility] HEPATIC FUNTION PANEL (STL) PROTEIN [MASS/VOLU ME] IN SERUM OR PLASMA 7.3 g/dL 6 - 8.6 10/21 Specimen Type: PLASMA No comment entered. Ordering Provider: SAMIR PENALOZA Report Released Date/Time: Oct 21, 2024 08:53 AM Reporting Lab: [place] [address] [facility] [address] Performing Lab: [address] [address] [facility] HEPATIC FUNTION PANEL (STL) ALBUMIN [MASS/VOLU ME] IN SERUM OR PLASMA 4.3 g/dL 3.4 - 5 10/21 Specimen Type: PLASMA No comment entered. Ordering Provider: BUSHONG,SAMIR EPH A Report Released Date/Time: Oct 21, 2024 08:53 AM Reporting Lab: [facility] [address] [facility] [address] Performing Lab: [facility] [address] [facility] [address] [facility] HEPATIC FUNTION PANEL (STL) BILIRUBIN. TOTAL [MASS/VOLU ME] IN SERUM OR PLASMA 1.2 mg/dL 0.2 - 1.2 10/21 Specimen Type: PLASMA No comment entered. Ordering Provider: SAMIR PENALOZA A Report Released Date/Time: Oct 21, 2024 08:53 AM Reporting Lab: [place] [address] [facility] [address] Performing Lab: [place] [address] [facility] [address] [facility] HEPATIC FUNTION PANEL (STL) ALKALINE PHOSPHATAS E [ENZYMATIC ACTIVITY/V OLUME] IN SERUM OR PLASMA 98 U/L 40 - 150 10/21 Specimen Type: PLASMA No comment entered. Ordering Provider: SAMIR PENALOZA A Report Released Date/Time: Oct 21, 2024 08:53 AM Reporting Lab: [place] [address] [facility] [address] Performing Lab: [place] [address] [address] [facility] [address] [facility] HEPATIC FUNTION PANEL (STL) ASPARTATE AMINOTRANS FERASE [ENZYMATIC ACTIVITY/V OLUME] IN SERUM OR PLASMA 34 U/L 5 - 34 10/21 Specimen Type: PLASMA No comment entered. Ordering Provider: SAMIR PENALOZA A Report Released Date/Time: Oct 21, 2024 08:53 AM Reporting Lab: [place] [address] [facility] [address] Performing Lab: [place] [address] [facility] [address] [facility] HEPATIC FUNTION PANEL (STL) ALANINE AMINOTRANS FERASE [ENZYMATIC ACTIVITY/V OLUME] IN SERUM OR PLASMA 36 U/L 8 - 40 10/21 Specimen Type: PLASMA No comment entered. Ordering Provider: SAMIR PENALOZA Report Released Date/Time: Oct 21, 2024 08:53 AM Reporting Lab: [place] [phone] Performing Lab: [place] [phone] HEPATIC FUNTION PANEL (STL) BILIRUBIN. CONJUGATED [MASS/VOLU ME] IN SERUM OR PLASMA 0.5 mg/dL 0 - 0.5 10/21 Specimen Type: PLASMA No comment entered. Ordering Provider: SAMIR PENALOZA Report Released Date/Time: Oct 21, 2024 08:53 AM Reporting Lab: [address] Performing Lab: [place] [address] [facility] [address] [facility] HEPATIC FUNTION PANEL (STL) PROTEIN [MASS/VOLU ME] IN SERUM OR PLASMA 7.2 g/dL 6 - 8.6 07/23 Specimen Type: PLASMA No comment entered. Ordering Provider: SIMONE GATES Report Released Date/Time: Jul 15, 2024 04:34 PM Reporting Lab: [place] [phone] Performing Lab: [place] [address] [facility] [address] [facility] HEPATIC FUNTION PANEL (STL) ALBUMIN [MASS/VOLU ME] IN SERUM OR PLASMA 4.0 g/dL 3.4 - 5 07/23 Specimen Type: PLASMA No comment entered. Ordering Provider: SIMONE GATES Report Released Date/Time: Jul 15, 2024 04:34 PM Reporting Lab: [place] [address] [facility] [address] Performing Lab: [address] [address] [place] [facility] HEPATIC FUNTION PANEL (STL) BILIRUBIN. TOTAL [MASS/VOLU ME] IN SERUM OR PLASMA 0.5 mg/dL 0.2 - 1.2 07/23 Specimen Type: PLASMA No comment entered. Ordering Provider: SIMONE GATES Report Released Date/Time: Jul 15, 2024 04:34 PM Reporting Lab: [place] [address] Performing Lab: [place] [phone] [facility] HEPATIC FUNTION PANEL (STL) ALKALINE PHOSPHATAS E [ENZYMATIC ACTIVITY/V OLUME] IN SERUM OR PLASMA 80 U/L 40 - 150 07/23 Specimen Type: PLASMA No comment entered. Ordering Provider: SIMONE GATES Report Released Date/Time: Jul 15, 2024 04:34 PM Reporting Lab: [place] [address] Performing Lab: [address] [facility] HEPATIC FUNTION PANEL (STL) ASPARTATE AMINOTRANS FERASE [ENZYMATIC ACTIVITY/V OLUME] IN SERUM OR PLASMA 35 U/L 5 - 34 07/23 H Specimen Type: PLASMA No comment entered. Ordering Provider: SIMONE GATES Report Released Date/Time: Jul 15, 2024 04:34 PM Reporting Lab: [place] [phone] Performing Lab: [place] [phone] [facility] HEPATIC FUNTION PANEL (STL) ALANINE AMINOTRANS FERASE [ENZYMATIC ACTIVITY/V OLUME] IN SERUM OR PLASMA 58 U/L 8 - 40 07/23 H Specimen Type: PLASMA No comment entered. Ordering Provider: SIMONE GATES Report Released Date/Time: Jul 15, 2024 04:34 PM Reporting Lab: [place] [address] Performing Lab: [address] [address] [facility] HEPATIC FUNTION PANEL (STL) BILIRUBIN. CONJUGATED [MASS/VOLU ME] IN SERUM OR PLASMA 0.2 mg/dL 0 - 0.5 07/23 Specimen Type: PLASMA No comment entered. Ordering Provider: SIMONE GATES Report Released Date/Time: Jul 15, 2024 04:34 PM Reporting Lab: [address] [phone] Performing Lab: [address] [address] [facility] LIPID PANEL (STL) CHOLESTERO L [MASS/VOLU ME] IN SERUM OR PLASMA 136 mg/dL 0 - 200 07/23 Specimen Type: PLASMA No comment entered. Ordering Provider: SIMONE GATES Report Released Date/Time: Jul 15, 2024 04:34 PM Reporting Lab: [address] [address] Performing Lab: [address] [address] [facility] LIPID PANEL (STL) TRIGLYCERI DE [MASS/VOLU ME] IN SERUM OR PLASMA 210 mg/dL 0 - 150 07/23 H Specimen Type: PLASMA No comment entered. Ordering Provider: SIMONE GATES Report Released Date/Time: Jul 15, 2024 04:34 PM Reporting Lab: [address] [address] Performing Lab: [address] [address] [facility] LIPID PANEL (STL) CHOLESTERO L IN LDL [MASS/VOLU ME] IN SERUM OR PLASMA BY CALCULATIO N 68 mg/dL 07/23 Specimen Type: PLASMA No comment entered. Ordering Provider: SIMONE GATES Report Released Date/Time: Jul 15, 2024 04:34 PM Reporting Lab: [address] [place] [address] Performing Lab: [address] [address] [facility] LIPID PANEL (STL) CHOLESTERO L IN HDL [MASS/VOLU ME] IN SERUM OR PLASMA 26 mg/dL 40 07/23 L Specimen Type: PLASMA No comment entered. Ordering Provider: SIMONE GATES Report Released Date/Time: Jul 15, 2024 04:34 PM Reporting Lab: [address] [address] Performing Lab: [address] [address] [facility] CBC LEUKOCYTES [#/VOLUME] IN BLOOD BY AUTOMATED COUNT 9.5 10*3/uL 3.6 - 11.2 07/14 Specimen Type: BLOOD No comment entered. Ordering Provider: SIMONE GATES Report Released Date/Time: Jul 08, 2024 02:33 PM Reporting Lab: [address] [address] Performing Lab: [address] [address] [facility] CBC ERYTHROCYT ES [#/VOLUME] IN BLOOD BY AUTOMATED COUNT 4.97 10*6/uL 4.10 - 5.70 07/14 Specimen Type: BLOOD No comment entered. Ordering Provider: SIMONE GATES Report Released Date/Time: Jul 08, 2024 02:33 PM Reporting Lab: [address] [address] Performing Lab: [address] [address] [facility] CBC HEMOGLOBIN [MASS/VOLU ME] IN BLOOD 15.9 g/dL 13.1 - 16.8 07/14 Specimen Type: BLOOD No comment entered. Ordering Provider: SIMONE GATES Report Released Date/Time: Jul 08, 2024 02:33 PM Reporting Lab: [place] [address] [address] Performing Lab: [address] [address] [facility] CBC HEMATOCRIT [VOLUME FRACTION] OF BLOOD 46.1 38.2 - 48.4 07/14 Specimen Type: BLOOD No comment entered. Ordering Provider: SIMONE GATES Report Released Date/Time: Jul 08, 2024 02:33 PM Reporting Lab: [address] [phone] Performing Lab: [address] [phone] [place] [address] [facility] CBC MCV [ENTITIC VOLUME] BY AUTOMATED COUNT 92.8 fL 80.0 - 100.0 07/14 Specimen Type: BLOOD No comment entered. Ordering Provider: SIMONE GATES Report Released Date/Time: Jul 08, 2024 02:33 PM Reporting Lab: [address] [address] Performing Lab: [address] [address] [facility] CBC MCH [ENTITIC MASS] BY AUTOMATED COUNT 32.0 pg 27.0 - 34.0 07/14 Specimen Type: BLOOD No comment entered. Ordering Provider: SIMONE GATES Report Released Date/Time: Jul 08, 2024 02:33 PM Reporting Lab: [address] [address] Performing Lab: [address] [address] [facility] CBC MCHC [MASS/VOLU ME] BY AUTOMATED COUNT 34.5 g/dL 33.0 - 36.0 07/14 Specimen Type: BLOOD No comment entered. Ordering Provider: SIMONE GATES Report Released Date/Time: Jul 08, 2024 02:33 PM Reporting Lab: [address] [address] Performing Lab: [address] [address] [facility] CBC PLATELETS [#/VOLUME] IN BLOOD BY AUTOMATED COUNT 291 10*3/uL 150 - 400 07/14 Specimen Type: BLOOD No comment entered. Ordering Provider: SIMONE GATES Report Released Date/Time: Jul 08, 2024 02:33 PM Reporting Lab: [address] [address] Performing Lab: [address] [address] [facility] CBC PLATELET MEAN VOLUME [ENTITIC VOLUME] IN BLOOD BY AUTOMATED COUNT 11.1 fL 7.5 - 11.2 07/14 Specimen Type: BLOOD No comment entered. Ordering Provider: SIMONE GATES Report Released Date/Time: Jul 08, 2024 02:33 PM Reporting Lab: [address] [address] Performing Lab: [address] [address] [facility] CBC ERYTHROCYT E DISTRIBUTI ON WIDTH [RATIO] BY AUTOMATED COUNT 11.9 11.8 - 15.1 07/14 Specimen Type: BLOOD No comment entered. Ordering Provider: SIMONE GATES Report Released Date/Time: Jul 08, 2024 02:33 PM Reporting Lab: [address] [address] Performing Lab: [address] [address] [facility] CBC LYMPHOCYTE S/100 LEUKOCYTES IN BLOOD BY AUTOMATED COUNT 23 07/14 Specimen Type: BLOOD No comment entered. Ordering Provider: SIMONE GATES Report Released Date/Time: Jul 08, 2024 02:33 PM Reporting Lab: [address] [address] Performing Lab: [address] [phone] [facility] CBC MONOCYTES/ 100 LEUKOCYTES IN BLOOD BY AUTOMATED COUNT 9 07/14 Specimen Type: BLOOD No comment entered. Ordering Provider: SIMONE GATES Report Released Date/Time: Jul 08, 2024 02:33 PM Reporting Lab: [facility] [address] [facility] [address] Performing Lab: [facility] [address] [facility] [address] [facility] CBC NEUTROPHIL S/100 LEUKOCYTES IN BLOOD BY AUTOMATED COUNT 66 07/14 Specimen Type: BLOOD No comment entered. Ordering Provider: SIMONE GATES Report Released Date/Time: Jul 08, 2024 02:33 PM Reporting Lab: [facility] [address] [place] [phone] Performing Lab: [facility] [address] [facility] CBC EOSINOPHIL S/100 LEUKOCYTES IN BLOOD BY AUTOMATED COUNT 1 07/14 Specimen Type: BLOOD No comment entered. Ordering Provider: SIMONE GATES Report Released Date/Time: Jul 08, 2024 02:33 PM Reporting Lab: [facility] [address] [place] [phone] Performing Lab: [facility] [address] [place] [address] [facility] CBC BASOPHILS/ 100 LEUKOCYTES IN BLOOD BY AUTOMATED COUNT 0 07/14 Specimen Type: BLOOD No comment entered. Ordering Provider: SIMONE GATES Report Released Date/Time: Jul 08, 2024 02:33 PM Reporting Lab: [facility] [address] [facility] [address] Performing Lab: [facility] [address] [place] [address] [phone] [facility] CBC LYMPHOCYTE S [#/VOLUME] IN BLOOD BY AUTOMATED COUNT 2.18 10*3/uL 0.77 - 4.50 07/14 Specimen Type: BLOOD No comment entered. Ordering Provider: SIMONE GATES Report Released Date/Time: Jul 08, 2024 02:33 PM Reporting Lab: [facility] [address] [place] [phone] Performing Lab: [facility] [address] [place] [phone] [facility] CBC MONOCYTES [#/VOLUME] IN BLOOD BY AUTOMATED COUNT 0.86 10*3/uL 0.19 - 0.80 07/14 H Specimen Type: BLOOD No comment entered. Ordering Provider: SIMONE GATES Report Released Date/Time: Jul 08, 2024 02:33 PM Reporting Lab: [place] [phone] Performing Lab: [place] [phone] [facility] CBC NEUTROPHIL S [#/VOLUME] IN BLOOD BY AUTOMATED COUNT 6.27 10*3/uL 2.10 - 8.00 07/14 Specimen Type: BLOOD No comment entered. Ordering Provider: SIMONE GATES Report Released Date/Time: Jul 08, 2024 02:33 PM Reporting Lab: [place] [phone] Performing Lab: [place] [phone] [facility] CBC EOSINOPHIL S [#/VOLUME] IN BLOOD BY AUTOMATED COUNT 0.13 10*3/uL 0.00 - 0.60 07/14 Specimen Type: BLOOD No comment entered. Ordering Provider: SIMONE GATES Report Released Date/Time: Jul 08, 2024 02:33 PM Reporting Lab: [facility] [address] [place] [phone] Performing Lab: [address] [id number] [facility] CBC BASOPHILS [#/VOLUME] IN BLOOD BY AUTOMATED COUNT 0.03 10*3/uL 0.00 - 0.20 07/14 Specimen Type: BLOOD No comment entered. Ordering Provider: SIMONE GATES Report Released Date/Time: Jul 08, 2024 02:33 PM Reporting Lab: [address] [id number] Performing Lab: [address] [id number] [facility] COMPREHE NSIVE METABOLI C PANEL CREATININE [MASS/VOLU ME] IN SERUM OR PLASMA 0.81 mg/dL 0.7 - 1.3 07/14 Specimen Type: PLASMA Comment: LDL calculation invalid when Triglycerid e exceeds 250 mg/dl Ordering Provider: SIMONE GATES Report Released Date/Time: Jul 08, 2024 02:33 PM Reporting Lab: [address] [address] Performing Lab: [address] [phone] [place] [address] [facility] COMPREHE NSIVE METABOLI C PANEL UREA NITROGEN [MASS/VOLU ME] IN SERUM OR PLASMA 15.2 mg/dL 9.0 - 25.0 07/14 Specimen Type: PLASMA Comment: LDL calculation invalid when Triglycerid e exceeds 250 mg/dl Ordering Provider: SIMONE GATES Report Released Date/Time: Jul 08, 2024 02:33 PM Reporting Lab: [address] [address] Performing Lab: [phone] [place] [address] [facility]OC COMPREHE NSIVE METABOLI C PANEL GLUCOSE [MASS/VOLU ME] IN SERUM OR PLASMA 120 mg/dL 72 - 99 07/14 H Specimen Type: PLASMA Comment: LDL calculation invalid when Triglycerid e exceeds 250 mg/dl Ordering Provider: SIMONE AGTES Report Released Date/Time: Jul 08, 2024 02:33 PM Reporting Lab: [address] [address] Performing Lab: [address] [address] [facility] COMPREHE NSIVE METABOLI C PANEL SODIUM [MOLES/VOL UME] IN SERUM OR PLASMA 141 meq/L 136 - 145 07/14 Specimen Type: PLASMA Comment: LDL calculation invalid when Triglycerid e exceeds 250 mg/dl Ordering Provider: SIMONE GATES Report Released Date/Time: Jul 08, 2024 02:33 PM Reporting Lab: [facility] [address] Performing Lab: [place] [address] [facility] [phone] [facility] COMPREHE NSIVE METABOLI C PANEL POTASSIUM [MOLES/VOL UME] IN SERUM OR PLASMA 4.9 meq/L 3.5 - 5 07/14 Specimen Type: PLASMA Comment: LDL calculation invalid when Triglycerid e exceeds 250 mg/dl Ordering Provider: SIMONE GATES Report Released Date/Time: Jul 08, 2024 02:33 PM Reporting Lab: [place] [address] [facility] [address] Performing Lab: [place] [address] [facility] [address] [facility] COMPREHE NSIVE METABOLI C PANEL CHLORIDE [MOLES/VOL UME] IN SERUM OR PLASMA 109 meq/L 98 - 107 07/14 H Specimen Type: PLASMA Comment: LDL calculation invalid when Triglycerid e exceeds 250 mg/dl Ordering Provider: SIMONE GATES Report Released Date/Time: Jul 08, 2024 02:33 PM Reporting Lab: [facility] [address] Performing Lab: [facility] [address] [facility] COMPREHE NSIVE METABOLI C PANEL CARBON DIOXIDE, TOTAL [MOLES/VOL UME] IN SERUM OR PLASMA 23 meq/L 22 - 31 07/14 Specimen Type: PLASMA Comment: LDL calculation invalid when Triglycerid e exceeds 250 mg/dl Ordering Provider: SIMONE GATES Report Released Date/Time: Jul 08, 2024 02:33 PM Reporting Lab: [facility] [phone] Performing Lab: [facility] [address] [facility] [address] [facility] COMPREHE NSIVE METABOLI C PANEL CALCIUM [MASS/VOLU ME] IN SERUM OR PLASMA 9.5 mg/dL 8.4 - 10.4 07/14 Specimen Type: PLASMA Comment: LDL calculation invalid when Triglycerid e exceeds 250 mg/dl Ordering Provider: SIMONE GATES Report Released Date/Time: Jul 08, 2024 02:33 PM Reporting Lab: [place] [address] [facility] [address] Performing Lab: [place] [address] [address] [facility] [address] [facility] COMPREHE NSIVE METABOLI C PANEL PROTEIN [MASS/VOLU ME] IN SERUM OR PLASMA 7.6 g/dL 6 - 8.6 07/14 Specimen Type: PLASMA Comment: LDL calculation invalid when Triglycerid e exceeds 250 mg/dl Ordering Provider: SIMONE GATES Report Released Date/Time: Jul 08, 2024 02:33 PM Reporting Lab: [facility] [address] [facility] [address] Performing Lab: [facility] [address] [facility] [address] [facility] COMPREHE NSIVE METABOLI C PANEL ALBUMIN [MASS/VOLU ME] IN SERUM OR PLASMA 4.1 g/dL 3.4 - 5 07/14 Specimen Type: PLASMA Comment: LDL calculation invalid when Triglycerid e exceeds 250 mg/dl Ordering Provider: SIMONE GATES Report Released Date/Time: Jul 08, 2024 02:33 PM Reporting Lab: [facility] [address] Performing Lab: [facility] [address] [facility] COMPREHE NSIVE METABOLI C PANEL BILIRUBIN. TOTAL [MASS/VOLU ME] IN SERUM OR PLASMA 0.4 mg/dL 0.2 - 1.2 07/14 Specimen Type: PLASMA Comment: LDL calculation invalid when Triglycerid e exceeds 250 mg/dl Ordering Provider: SIMONE GATES Report Released Date/Time: Jul 08, 2024 02:33 PM Reporting Lab: [address] [address] Performing Lab: [facility] [address] [facility] [address] [facility] COMPREHE NSIVE METABOLI C PANEL ALKALINE PHOSPHATAS E [ENZYMATIC ACTIVITY/V OLUME] IN SERUM OR PLASMA 90 U/L 40 - 150 07/14 Specimen Type: PLASMA Comment: LDL calculation invalid when Triglycerid e exceeds 250 mg/dl Ordering Provider: SIMONE GATES Report Released Date/Time: Jul 08, 2024 02:33 PM Reporting Lab: [address] [address] Performing Lab: [place] [address] [facility] [phone] [place] [address] [facility] COMPREHE NSIVE METABOLI C PANEL ASPARTATE AMINOTRANS FERASE [ENZYMATIC ACTIVITY/V OLUME] IN SERUM OR PLASMA 35 U/L 5 - 34 07/14 H Specimen Type: PLASMA Comment: LDL calculation invalid when Triglycerid e exceeds 250 mg/dl Ordering Provider: SIMONE GATES Report Released Date/Time: Jul 08, 2024 02:33 PM Reporting Lab: [address] [address] Performing Lab: [place] [address] [facility] [address] [facility] COMPREHE NSIVE METABOLI C PANEL ALANINE AMINOTRANS FERASE [ENZYMATIC ACTIVITY/V OLUME] IN SERUM OR PLASMA 62 U/L 8 - 40 07/14 H Specimen Type: PLASMA Comment: LDL calculation invalid when Triglycerid e exceeds 250 mg/dl Ordering Provider: SIMONE GATES Report Released Date/Time: Jul 08, 2024 02:33 PM Reporting Lab: [address] [address] Performing Lab: [facility] [address] [place] [phone] [facility] COMPREHE NSIVE METABOLI C PANEL GLOMERULAR FILTRATION RATE/1.73 SQ M.PREDICTE D [VOLUME RATE/AREA] IN SERUM, PLASMA OR BLOOD BY CREATININE -BASED FORMULA (CKD-EPI 2020) 109.4 60 07/14 Specimen Type: PLASMA Comment: LDL calculation invalid when Triglycerid e exceeds 250 mg/dl Ordering Provider: SIMONE GATES Report Released Date/Time: Jul 08, 2024 02:33 PM Reporting Lab: [facility] [address] [place] [phone] Performing Lab: [place] [id number] [facility] HGA1C HEMOGLOBIN A1C/HEMOGL OBIN.TOTAL IN BLOOD 5.9 4.0 - 6.0 07/14 Specimen Type: BLOOD No comment entered. Ordering Provider: SIMONE GATES Report Released Date/Time: Jul 08, 2024 02:33 PM Reporting Lab: [facility] [address] [place] [phone] Performing Lab: [address] [address] [facility] LIPID PANEL (STL) CHOLESTERO L [MASS/VOLU ME] IN SERUM OR PLASMA 146 mg/dL 0 - 200 07/14 Specimen Type: PLASMA Comment: LDL calculation invalid when Triglycerid e exceeds 250 mg/dl Ordering Provider: SIMONE GATES Report Released Date/Time: Jul 08, 2024 02:33 PM Reporting Lab: [facility] [address] [place] [phone] Performing Lab: [facility] [address] [place] [phone] [facility] LIPID PANEL (STL) TRIGLYCERI DE [MASS/VOLU ME] IN SERUM OR PLASMA 279 mg/dL 0 - 150 07/14 H Specimen Type: PLASMA Comment: LDL calculation invalid when Triglycerid e exceeds 250 mg/dl Ordering Provider: SIMONE GATES Report Released Date/Time: Jul 08, 2024 02:33 PM Reporting Lab: [facility] [address] [facility] [address] Performing Lab: [facility] [address] [place] [phone] [facility] LIPID PANEL (STL) CHOLESTERO L IN LDL [MASS/VOLU ME] IN SERUM OR PLASMA BY DIRECT ASSAY 82 mg/dL 100 07/14 L Specimen Type: PLASMA Comment: LDL calculation invalid when Triglycerid e exceeds 250 mg/dl Ordering Provider: SIMONE GATES Report Released Date/Time: Jul 08, 2024 02:33 PM Reporting Lab: [address] [address] Performing Lab: [address] [address] [facility] LIPID PANEL (STL) CHOLESTERO L IN LDL [MASS/VOLU ME] IN SERUM OR PLASMA BY CALCULATIO N commentm g/dL 07/14 Specimen Type: PLASMA Comment: LDL calculation invalid when Triglycerid e exceeds 250 mg/dl Ordering Provider: SIMONE GATES Report Released Date/Time: Jul 08, 2024 02:33 PM Reporting Lab: [facility] [address] [place] [phone] Performing Lab: [place] [address] [facility] [address] [facility] LIPID PANEL (STL) CHOLESTERO L IN HDL [MASS/VOLU ME] IN SERUM OR PLASMA 25 mg/dL 40 07/14 L Specimen Type: PLASMA Comment: LDL calculation invalid when Triglycerid e exceeds 250 mg/dl Ordering Provider: SIMONE GATES Report Released Date/Time: Jul 08, 2024 02:33 PM Reporting Lab: [facility] [address] [place] [phone] Performing Lab: [facility] [address] [facility] [address] [facility] Vital Signs Combined list of inpatient and outpatient Vital Signs from Department of Defense and Veterans Affairs, ranging from 12 months to all on record, depending upon the facility. Vital Sign Value Date Comments Source WEIGHT 253.5 12/31/2024 14:45:[facility] BMI 33 kg/m2 12/31/2024 14:45:35 [facility] SYSTOLIC BLOOD PRESSURE 111 10/21/2024 08:25:37 [facility] DIASTOLIC BLOOD PRESSURE 69 10/21/2024 08:25:37 [facility] PULSE OXIMETRY 96 10/21/2024 08:25:37 [facility] WEIGHT 285.5 10/21/2024 08:25:37 [facility] BMI 37 kg/m2 10/21/2024 08:25:37 [facility] PAIN 8 10/21/2024 08:25:37 [facility] TEMPERATURE 96.8 10/21/2024 08:25:37 [facility] PULSE 73 10/21/2024 08:25:37 [facility] RESPIRATION 18 10/21/2024 08:25:37 [facility] SYSTOLIC BLOOD PRESSURE 118 10/15/2024 14:01:48 [facility] DIASTOLIC BLOOD PRESSURE 72 10/15/2024 14:01:48 [facility] PULSE OXIMETRY 73 10/15/2024 14:01:48 [facility] WEIGHT 300.2 10/15/2024 14:01:48 [facility] BMI 39 kg/m2 10/15/2024 14:01:48 [facility] PAIN 4 10/15/2024 14:01:48 [facility] TEMPERATURE 98 10/15/2024 14:01:48 [facility] PULSE 73 10/15/2024 14:01:48 [facility] RESPIRATION 18 10/15/2024 14:01:48 . [facility] WEIGHT 293.6 10/14/2024 16:25:09 [facility] BMI 38 kg/m2 10/14/2024 16:25:09 [facility] SYSTOLIC BLOOD PRESSURE 129 07/08/2024 14:13:04 . [facility] DIASTOLIC BLOOD PRESSURE 82 07/08/2024 14:13:04 . [facility] PULSE OXIMETRY 94 07/08/2024 14:13:04 [facility] WEIGHT 348 07/08/2024 14:13:04 [facility] BMI 45 kg/m2 07/08/2024 14:13:04 [facility] PAIN 5 07/08/2024 14:13:04 Merlin Wheat [facility] TEMPERATURE 97.9 07/08/2024 14:13:04 . [facility] PULSE 87 07/08/2024 14:13:04 [facility] RESPIRATION 20 07/08/2024 14:13:04 [facility] Encounters Combined list of: 1) Encounters from Department of Veterans Affairs facilities going backup to the last 18 months, not all VA inpatient encounters are included; 2) Encounters from the Department of Defense facilities going backup to 280 months. Location Location Details Encounter Type Encounter Number Reason For Visit Attending Provider ADM Date DC Date Status Disposition Source Theater Facility OUTPATIENT [id number] 07/10 Released w/o Limitations [facility] OUTPATIENT [id number] 07/14 Released w/o Limitations [facility] OUTPATIENT [id number] 11/27 Released with Work/Duty Limitations [facility] OUTPATIENT [id number] 01/08 Released w/o Limitations Theater Facilit y [facility] Outpatient Encounter [id number] 08/09 [facility] Outpatient Encounter [id number] 08/09 [facility] Outpatient Encounter [id number] 08/12 [facility] Outpatient Encounter [id number] ARIA [place]OUNT 08/12 [facility] Outpatient Encounter [id number] Leanne HOANG 08/12 [facility] EGD BIOPSY SINGLE/MUL TIPLE [id number] Diagnos is: ICD-10- CM K21.9 Gastro- esophag eal reflux disease without esophag itis JANEL ANDERSON 08/12 [facility] Outpatient Encounter [id number] 08/12 [facility] OFFICE O/P EST LOW 20 MIN [id number] Diagnos is: ICD-10- CM Z01.818 Encount er for other preproc edural examina Leanne Singleton 08/12 [facility] Outpatient Encounter [id number] NADER TYLER 08/12 [facility] Outpatient Encounter [id number] EDITH KNOX 08/14 [facility] Outpatient Encounter [id number] 08/15 [facility] Outpatient Encounter [id number] 10/14 [facility] OFFICE O/P EST LOW 20 MIN [id number] Diagnos is: ICD-10- CM I10 Essenti al (primar y) hyperte Caty Cruz 10/16 [facility] OFFICE O/P EST LOW 20 MIN [id number] Diagnos is: ICD-10- CM K21.9 Gastro- esophag eal reflux disease without esophag itis [address] Girma 10/22 [facility] SELF-MGMT EDUC & TRAIN 1 [place] [id number] Diagnos is: ICD-10- CM G47.33 Obstruc tive sleep apnea (adult) ([facility]) JESSICA ROCHA 02/04 [facility] SELF-MGMT EDUC & TRAIN 1 [place] [id number] Diagnos is: ICD-10- CM G47.33 Obstruc tive sleep apnea (adult) ([facility]) JESSICA ROCHA 02/09 [facility] OFFICE O/P EST MOD 30 MIN [id number] Diagnos is: ICD-10- CM K21.9 Gastro- esophag eal reflux disease without esophag itis MONICA PENALOZA 04/22 [facility] Outpatient Encounter [id number] YUMIKO BHANDARI 07/06 [facility] OFFICE O/P EST MOD 30 MIN [id number] Diagnos is: ICD-10- CM I10 Essenti al (primar y) mariane Caty Cruz 07/08 [facility] Outpatient Encounter [id number] 07/13 [facility] N [facility] Outpatient Encounter [id number] 07/14 [facility] Outpatient Encounter [id number] 07/23 [facility] N [facility] Outpatient Encounter [id number] YUMIKO BHANDARI KELSIN 09/14 [facility] Outpatient Encounter [id number] ELISABETJOHNAlysia MYESHAOLYN 09/14 [facility] Outpatient Encounter [id number] ROLANDA BROWN 10/12 [facility] Outpatient Encounter [id number] YUMIKO BHANDARI NDOLYN 10/12 [facility] Outpatient Encounter [id number] YUMIKO BHANDARI MYESHAOLYRenetta 10/12 [facility] PSYTX W PT 30 MINUTES [id number] Diagnos is: ICD-10- CM Z63.0 Problem s in relatio nship with spouse or partner Renato HOANG 10/15 [facility] OFFICE O/P EST LOW 20 MIN [id number] Diagnos is: ICD-10- CM I10 Essenti al (primar y) hyperte nsion Caty GATES 10/15 [facility] PSYTX W PT 30 MINUTES [id number] Diagnos is: ICD-10- CM F41.1 General ized anxiety disordRenato Sanders 10/19 [facility] Outpatient Encounter [id number] 10/21 [facility] OFFICE O/P EST LOW 20 MIN [id number] Diagnos is: ICD-10- CM K21.9 Gastro- esophag eal reflux disease without esophag melissais MONICA PENALOZA 10/21 [facility] [place] [id number] Diagnos is: ICD-10- CM E66.812 Obesity , class 2 SAULSBERYROLANDA D 10/21 [facility] Outpatient Encounter [id number] YUMIKO BHANDARI 10/22 [facility] Outpatient Encounter [id number] 10/27 [facility] Outpatient Encounter [id number] 10/27 [facility] PSYTX W PT 30 MINUTES [id number] Diagnos is: ICD-10- CM F41.1 General ized anxiety Renato Hilton 10/29 [facility] Outpatient Encounter [id number] 10/29 [facility] Outpatient Encounter [id number] 11/03 [facility] PSYTX W PT 30 MINUTES [id number] Diagnos is: ICD-10- CM F41.1 General ized anxiety disorde Renato Cope 11/17 [facility] Outpatient Encounter [id number] YUMIKO BHANDARI 11/24 [facility] Outpatient Encounter [id number] Renato HOANG 11/25 [facility] Outpatient Encounter [id number] Renato HOANG 11/25 [facility] Outpatient Encounter [id number] YUMIKO BHANDARI 11/26 [facility] Outpatient Encounter [id number] YUMIKO BHANDARI 11/27 [facility] Outpatient Encounter [id number] TESSIE JADE 12/03 [facility] Outpatient Encounter [id number] 12/04 [facility] SYNCH AUDIO-ONLY EST SF 10 [id number] Diagnos is: ICD-10- CM M25.511 Pain in right shoulde r KIM GAITAN 12/08 [facility] Outpatient Encounter [id number] 12/09 [facility] Outpatient Encounter [id number] YUMIKO BHANDARI NDOLYN 12/11 [facility]&MGMT NQHP 5-10 [id number] Diagnos is: ICD-10- CM I10 Essenti al (primar y) hyperte nsion YUMIKO BHANDARI NDOLYN 12/11 [facility] MED NUTRITION INDIV SUBSEQ [id number] Diagnos is: ICD-10- CM E66.811 Obesity , class 1 ASHLEE BROWNA D 12/31 [facility] Outpatient Encounter [id number] SACOLEEN ROLANDA D 01/04 [facility] Outpatient Encounter [id number] 01/04 [facility] N Procedures Combined list of: 1) Procedures from Department of [facility] Affairs facilities going back up to thelast [...] status NHIS VA-TOBACCO USE FORMER CIGARETTES 10/15/2024 [facility] History of tobacco use VA-TOBACCO NEVER USED OTHER TYPE 10/15/2024 [facility] History of tobacco use VA-TOBACCO NEVER USED 10/17/2023 [facility] History of tobacco use VA-TOBACCO USER EVERY DAY [facility] This section is an empty social history section. DoD Plan of Care List of future care activities from Department of Veterans Affairs facilities. Additional future care activities may be listed in the Assessment and Plan section. Date/Time Care Activity Care Activity Detail Facili ty 02/02/2025 AMBULATORY - NONE AMB[facility]ORY - NONE [facility]
--- OUTSIDE RECORDS SUMMARY | 2025-01-31 16:30 | XMS_ITS | Clinical Summary ---
Author Organization [facility] Address [facility] [place] [address] Care Team Providers Care Web Press Operator Helper Offset Name Role Phone Amadeo Cole MD Unavailable [phone] Allergies No known active allergies Medications [...] 36.7 C (98 F) 07/11/2017 11:37 AM SOLDERING TECHNICIAN Respiratory Rate 16 07/11/2017 3:00 PM SOLDERING TECHNICIAN Oxygen Saturation 97% 07/11/2017 3:00 PM SOLDERING TECHNICIAN Inhaled Oxygen Concentration - - Weight 144.2 [...] HEPATITIS C AB NON-REACTIVE TESTING PERFORMED AT [facility] [address] [place] [address] NR [facility] TO EPIC CONVERSION 10/06/2016 8:25 AM CDT 10/06/2016 8:25 AM CDT Narrative [facility] TO EP[facility] CONVERSION - 10/08/2016 5:24 PM CDT Result Communication: No patient communication needed at this time Jonh Lu MD LABORATORY Final Result [facility] TO EPIC CONVERSION from Last 3 Months or Most Recently Relevant to Health Maintenance Insurance CIGNA CIGNA Care Teams Web Press Operator Helper Offset Relationship Specialty Start Date End Date Amadeo Cole MD [facility] [address] [place] [address] [place] Dry Cleaning Counter Clerk CARDIOVASCULAR DISEASE 07/02/17
--- OUTSIDE RECORDS SUMMARY | 2025-01-31 16:30 | XMS_ITS | Encounter Summary ---
Author Organization [facility] Address [facility] [place] [address] Care Team Providers Care Electric Wheelchair Repairer Name Role Phone Miguel A Coleman MD Primary Care Provider Amadeo Cole MD Unavailable [phone] Encounter Details Date Type Department Care Team (Late st Contact Info) Description 10/13/2012 Abstract [facility] CONVERSION [address] [place] [address] , Lori Pete MD Social [...] on filedocumented in this encounter Care Teams Electric Wheelchair Repairer Relationship Specialty Start Date End Date Miguel A Coleman MD [address] [place] [address] [place] [address] PCP - General FAMILY PRACTICE 05/31/17 11/26/18 Amadeo Cole MD [address] [address] [place] Knitting Machine Operator CARDIOVASCULAR DISEASE 07/02/17 documented as of this encounter
--- OUTSIDE RECORDS SUMMARY | 2025-01-31 16:30 | XMS_ITS | Clinical Summary ---
Author Organization [facility] [employer] Address [address] [place] [address] Care Team Providers Care Mechanical Meter Tester Name Role Phone Vimal Soler MD Primary Care Provider [phone] Source Comments [facility] [employer],non-owned Affiliates and Associated Physician Practices is amultiple site organization consisting of ambulatory clinics and hospital sitesin [place], [place], [place] and [place]. This disclosure is being madepursuant to the Care Everywhere program and may not contain all information available regarding this patient. Last updated 18.[facility] [employer] Allergies Active Allergy Reactions Criticality Noted Date [...] Comments Blood Pressure 143/97 06/12/2021 11:13 AM WATER TREATMENT PLANT ENGINEER Pulse 91 06/12/2021 11:13 AM WATER TREATMENT PLANT ENGINEER Temperature 37 C (98.6 F) 08/24/2019 7:54 AM WATER TREATMENT PLANT ENGINEER Respiratory Rate 14 06/12/2021 11:13 AM WATER TREATMENT PLANT ENGINEER Oxygen Saturation 97% 06/12/2021 11:13 AM WATER TREATMENT PLANT ENGINEER Inhaled Oxygen Concentration - - Weight 140.6 kg (310 lb) 06/12/2021 11:13 AM WATER TREATMENT PLANT ENGINEER Height 188 cm (6' 2) 06/12/2021 11:13 AM WATER TREATMENT PLANT ENGINEER Body Mass Index 39.8 06/12/2021 11:13 AM WATER TREATMENT PLANT ENGINEER Plan of Treatment Health Maintenance Due Date [...] Management General On track( 021 11:21 AM WATER TREATMENT PLANT ENGINEER) William Ross, RN Note: Expected end date: [...] 46 U/L [facility] Comment: Test Performed at: [facility] [address] [address] BRUCE MARIE DO,MPH Blood BLOOD SPECIMEN / Unknown 01/30/2021 8:06 AM CDT 01/30/2021 8:07 AM CDT us Kermit Polanco MD LAB - CHEMISTRY OR DERABLES Final Result [facility] [id number] [place] [address] * ENDOSCOPY, COLON, DIAGNOSTIC (04/08/2019 12:53 PM [...] recent bleeding were evident and no red laltia signs were present. LA Grade B (one [...] daily. - Repeat upper endoscopy as per technical sales support specialist for surveillance. - Return to GI clinic as previously scheduled. Attending Participation: I was present and participated during the entire procedure, including non-ellison portions. Procedure Code(s): --- Professional --- 91278, Esophagogastroduode noscopy, flexible, transoral; diagnostic, including collection of specimen(s) by brushing or washing, when performed (separate procedure) Diagnosis Code(s): --- Professional --- K74.60, Unspecified cirrhosis of liver I85.10, Secondary esophageal varices without bleeding K21.0, Gastro-esophageal reflux disease with esophagitis CPT copyright 2016 [employer]. All rights reserved. The codes documented in this report are preliminary and upon plugger man review may be revised to meet current compliance requirements. ___ Monik Curiel MD 04/08/2019 2:01:09 PM This report has been signed electronically. Note Initiated On: 04/08/2019 12:53 PM Number of Addenda: 0 [facility] [address] [address] [facility] PROVATION 04/08/2019 12:5 3 PM CDT Monik Curiel MD GI PROCEDURE ORDERABLES Ed ited Result - Final [facility] PROVATION from Last 3 Months or Most Recently Relevant to Health Maintenance Insurance [facility] Care Teams Mechanical Meter Tester Relationship Specialty Start Date End Date Vimal Soler MD PCP - General Family Medicine 12/04/18
--- OUTSIDE RECORDS SUMMARY | 2025-01-31 16:30 | XMS_ITS | Encounter Summary ---
Author Organization [facility] Address [address] [place] [address] Care Team Providers Care Recreational Facilities Motel Manager Name Role Phone Miguel A Coleman MD Primary Care Provider Amadeo Cole MD Unavailable [phone] Encounter Details Date Type Department Care Team (Late st Contact Info) Description 06/28/2017 Abstract [facility] Clinics Conversion Md, Generic Conversion, Social [...] on filedocumented in this encounter Care Teams Recreational Facilities Motel Manager Relationship Specialty Start Date End Date Miguel A Coleman MD [address] [place] [address] [place] [address] PCP - General FAMILY PRACTICE 05/31/17 11/26/18 Amadeo Cole MD [facility]. [address] [address] Kirstin Echocardiograph Technician CARDIOVASCULAR DISEASE 07/02/17 documented as of this encounter
--- OUTSIDE RECORDS SUMMARY | 2025-01-31 16:30 | XMS_ITS | Encounter Summary ---
Author Organization [facility] Address [facility] [place] [address] Care Team Providers Care Geological Drafter Name Role Phone Miguel A Coleman MD Primary Care Provider Amadeo Cole MD Unavailable [phone] Encounter Details Date Type Department Care Team (Late st Contact Info) Description 07/15/2017 Abstract [facility] at [address] [address] Irene Noonan MA Social History [...] on filedocumented in this encounter Care Teams Geological Drafter Relationship Specialty Start Date End Date Miguel A Coleman MD [address] [place] [address] [place] [address] PCP - General FAMILY PRACTICE 05/31/17 11/26/18 Amadeo Cole MD [address] [place] [address] Kirstin Orthotic/Prosthetic Clinician CARDIOVASCULAR DISEASE 07/02/17 documented as of this encounter
[2025-01-31 17:18] VITALS: BP 143/81; PULSE 70; RESP 18; O2SAT 99
== END 2025-01-31 17:19 | disposition home or self-care (01) ==
PROVIDERS: Emergency Provider Registered Nurse
DX: S61.012A Laceration without foreign body of left thumb without damage to nail, initial encounter (principal); F17.210 Nicotine dependence, cigarettes, uncomplicated; W26.0XXA Contact with knife, initial encounter
CPT/HCPCS: 12001; 73130; 99283; J2003